=== PATIENT | male | born 1955 | race Caucasian/White ===

== ENCOUNTER → 2016-07-09 | Outpatient (CLI) | payer OTHER ==
[~2016-07-09] MED LIST: ADVA250A INH; ALBU0.08 NEB; NEBUMIS6 INH
[2016-07-09 12:30] LABS: HEMATOCRIT 44.4 % (39.0-51.0); MEAN CELL VOLUME 87.6 FL (80.0-100.0); MEAN CORPUSCULAR HEMOGLOBIN 29.7 PG (27.0-34.0); MEAN CORPUSCULAR HGB CONC 33.9 % (32.0-36.0); PLATELET COUNT 328 TH/MM3 (150-450); RED BLOOD COUNT 5.07 MIL/MM3 (4.50-5.90); RED CELL DISTRIBUTION WIDTH 14.3 % (11.6-17.2); REVIEW FLAG FINAL; WHITE BLOOD COUNT 8.4 TH/MM3 (4.0-11.0)
[2016-07-09 13:22] LABS: ALKALINE PHOSPHATASE 136 U/L (45-117); ALT (GPT) 23 U/L (12-78); ANION GAP 6 MEQ/L (5-15); AST (GOT) 20 U/L (15-37); BICARBONATE 31.6 MEQ/L (21.0-32.0); BLOOD UREA NITROGEN 22 MG/DL (7-18); CHLORIDE 102 MEQ/L (98-107); GLOMERULAR FILTRATION RATE 70 ML/MIN (>89); GLUCOSE,FASTING 98 MG/DL (74-99); HDL CHOLESTEROL 55.5 MG/DL (40.0-60.0); LDL CHOLESTEROL 104 MG/DL (0-99); SODIUM (NA) 140 MEQ/L (136-145); TOTAL BILIRUBIN ADULT 0.5 MG/DL (0.2-1.0)
== END ==
LOC: CLAB 12:01
PROVIDERS: ATTEND Nurse Practitioner Family
DX: J43.9 Emphysema, unspecified (principal)
CPT/HCPCS: 36415; 80053; 80061; 84443; 85027

== ENCOUNTER 2016-12-20 12:19 | Inpatient (IN) | payer MEDICAID, OTHER ==
[~2016-12-20] VITALS: Ht 177.8 cm; Wt 102.9 kg
[2016-12-20] VITALS (14 sets, daily range): BP systolic 105–155; BP diastolic 55–95; PULSE 98–110; RESP 16–28; TEMP 97.5–98.3; O2SAT 92–100
[2016-12-20] MEDS ORDERED: methylPREDNISolone SOD SUCC 125 MG/2 ML VIAL ONE (12:26)
[2016-12-20] MEDS ORDERED: AZITHROMYCIN 250 MG TAB PO SCH (12:30)
[2016-12-20] MEDS ORDERED: methylPREDNISolone SOD SUCC 125 MG/2 ML VIAL IVP ONE (12:30)
[2016-12-20] MEDS ORDERED: SODIUM CHLORIDE 0.9% FLUSH 10 ML FLUSH IVF PRN ×2 (12:30→12:45)
--- NOTE | 2016-12-20 12:42 | PD ---
HPI Chief Complaint: Respiratory Distress Time Seen by Provider: 12:25 Travel History International Travel<30 days: No Contact w/Intl Traveler<30days: No Traveled to known affect area: No History of Present Illness HPI 61-year-old male presents to the emergency department via EMS with respiratory distress. Patient is a known end-stage COPD patient with emphysema who is brought in secondary to severe respiratory distress, tachypnea, wheezing , and O2 sats at 90%. Patient states he was up all night sitting using his albuterol inhaler frequently, and his Advair 1. Patient denies recent fever or sweats. He denies chest pain. He has no nausea, vomiting, or respiratory symptoms. EMS called en route and the patient was given 2 mg magnesium IV as well as 4 mg Zofran IV as he was fighting using a rebreather mask for his duo nebs. Patient refused intubation in route. Patient upon arrival is receiving his third DuoNeb, and is satting at 97% on 6 L. EKG and the rate was normal sinus rhythm. Patient is now able to speak in short sentences although still tachypneic. Patient is a long-term smoker and still smokes "occasionally". He has no known drug allergies. PFSH Past Medical History Asthma: No Blood Disorders: No Anxiety: No Depression: No Heart Rhythm Problems: No Cancer: No Cardiovascular Problems: No Chemotherapy: No Chest Pain: No Congestive Heart Failure: No COPD: No Diabetes: No Endocrine: No Gastrointestinal Disorders: Yes (DIARRHEA X 7 DAYS LAST WEEK) Genitourinary: No Immune Disorder: No Musculoskeletal: No Neurologic: No Psychiatric: No Reproductive: No Respiratory: Yes (emphysema) Radiation Therapy: No Sleep Apnea: No Thyroid Disease: No Past Surgical History Other Surgery: Yes (HERNIA REPAIR) Social History Alcohol Use: Yes (OCCASIONAL BEER) Tobacco Use: Yes (1 pack per 3 days) Substance Use: No Allergies-Medications (Allergen,Severity, Reaction): Coded Allergies: No Known Allergies (Verified , 12/20/16) Reported Meds & Prescriptions Reported Meds & Active Scripts Active Albuterol Neb (Albuterol Sulfate) 2.5 Mg/3 Ml Neb 2.5 Mg NEB TID NEB PRN Advair Diskus Inh (Fluticasone-Salmeterol Inh) 250-50 Mcg/Blist Aer 1 Puff INH BID Rinse mouth after use. Review of Systems Except as stated in HPI: all other systems reviewed are Neg General / Constitutional: No: Fever, Chills Eyes: No: Visual changes HENT: No: Headaches, Sore Throat, Rhinitis, Rhinorrhea, Congestion, Nosebleed, Neck Stiffness, Neck Pain, Ear Discharge, Earache Cardiovascular: Positive: Tachycardia, No: Chest Pain or Discomfort, Palpitations, Irregular Rhythm, Diaphoresis Respiratory: Positive: Cough, Shortness of Breath, Wheezing (severe.), Orthopnea, No: Sneezing, Hemoptysis, Stridor, Night Sweats, Pleuritic Pain, Other Gastrointestinal: No: Nausea, Vomiting, Diarrhea, Abdominal Pain Genitourinary: No: Dysuria Musculoskeletal: No: Pain Skin: No Rash Neurologic: No: Weakness Psychiatric: No: Depression Endocrine: No: Polydipsia Hematologic/Lymphatic: No: Easy Bruising Physical Exam Narrative GENERAL: Patient is an obvious moderate respiratory distress. SKIN: Warm and dry. Normal color. Normal turgor. HEAD: Atraumatic. Normocephalic. EYES: Pupils equal and round. No scleral icterus. No injection or drainage. ENT: No nasal bleeding or discharge. Mucous membranes pink and moist. Pharynx is clear. Airway is patent. NECK: Trachea midline. Supple. CARDIOVASCULAR: Tachycardic rate and normal rhythm. RESPIRATORY: Moderate accessory muscle use. Moderate to severe wheezing throughout to auscultation. No rales or rhonchi appreciated. Breath sounds equal bilaterally. GASTROINTESTINAL: Abdomen soft, non-tender, nondistended. Hepatic and splenic margins not palpable. MUSCULOSKELETAL: Extremities without clubbing, cyanosis, or edema. No obvious deformities. NEUROLOGICAL: Awake and alert. No obvious cranial nerve deficits. Motor grossly within normal limits. Five out of 5 muscle strength in the arms and legs. Normal speech. PSYCHIATRIC: Appropriate mood and affect; insight and judgment normal. Data Data Last Documented VS Vital Signs Date Time Temp Pulse Resp B/P (MAP) Pulse Ox O2 Delivery O2 Flow Rate FiO2 12/20/16 13:52 40 12/20/16 13:51 109 22 125/75 (92) 100 BiPAP 12/20/16 12:53 3.50 12/20/16 12:32 98.2 Orders Orders Methylprednisolone So Succ Inj (Solumedr (12/20/16 12:26) Complete Blood Count With Diff (12/20/16 12:25) Comprehensive Metabolic Panel (12/20/16 12:25) B-Type Natriuretic Peptide (12/20/16 12:25) Act Partial Throm Time (Ptt) (12/20/16 12:25) Prothrombin Time / Inr (Pt) (12/20/16 12:25) Ckmb (Isoenzyme) Profile (12/20/16 12:25) Troponin I (12/20/16 12:25) Iv Access Insert/Monitor (12/20/16 12:25) Electrocardiogram (12/20/16 12:25) Ecg Monitoring (12/20/16 12:25) Oximetry (12/20/16 12:25) Oxygen Administration (12/20/16 12:25) Chest, Single Ap (12/20/16 12:25) Sodium Chloride 0.9% Flush (Ns Flush) (12/20/16 12:30) Methylprednisolone So Succ Inj (Solumedr (12/20/16 12:30) Lactic Acid (12/20/16 12:25) Blood Afb Culture (Elvira) (12/20/16 12:25) Azithromycin (Zithromax) (12/20/16 12:30) Resp Blood Gas Venous (12/20/16 ) Sodium Chloride 0.9% Flush (Ns Flush) (12/20/16 12:45) Albuterol-Ipratropium Neb (Duoneb Neb) (12/20/16 12:45) Resp Bipap / Cpap Non Invas Vt (12/20/16 ) Blood Gas Venous (Vbg) (12/20/16 12:42) Lorazepam Inj (Ativan Inj) (12/20/16 13:30) CKMB (12/20/16 12:30) CKMB% (12/20/16 12:30) Arterial Blood Gas (Abg) (12/20/16 ) Admit Order (Ed Use Only) (12/20/16 14:40) Labs Laboratory Tests Test 12/20/16 12:30 12/20/16 12:42 White Blood Count 9.4 TH/MM3 Red Blood Count 4.99 MIL/MM3 Hemoglobin 14.4 GM/DL Hematocrit 43.6 % Mean Corpuscular Volume 87.4 FL Mean Corpuscular Hemoglobin 28.9 PG Mean Corpuscular Hemoglobin Concent 33.1 % Red Cell Distribution Width 15.4 % Platelet Count 337 TH/MM3 Mean Platelet Volume 7.4 FL Neutrophils (%) (Auto) 71.1 % Lymphocytes (%) (Auto) 15.3 % Monocytes (%) (Auto) 10.3 % Eosinophils (%) (Auto) 2.4 % Basophils (%) (Auto) 0.9 % Neutrophils # (Auto) 6.7 TH/MM3 Lymphocytes # (Auto) 1.4 TH/MM3 Monocytes # (Auto) 1.0 TH/MM3 Eosinophils # (Auto) 0.2 TH/MM3 Basophils # (Auto) 0.1 TH/MM3 CBC Comment DIFF FINAL Differential Comment Prothrombin Time 11.0 SEC Prothromb Time International Ratio 1.0 RATIO Activated Partial Thromboplast Time 30.7 SEC Blood Urea Nitrogen 15 MG/DL Creatinine 0.72 MG/DL Random Glucose 102 MG/DL Total Protein 7.4 GM/DL Albumin 3.6 GM/DL Calcium Level 8.9 MG/DL Alkaline Phosphatase 154 U/L Aspartate Amino Transf (AST/SGOT) 25 U/L Alanine Aminotransferase (ALT/SGPT) 22 U/L Total Bilirubin 0.5 MG/DL Sodium Level 137 MEQ/L Potassium Level 4.4 MEQ/L Chloride Level 102 MEQ/L Carbon Dioxide Level 26.4 MEQ/L Anion Gap 9 MEQ/L Estimat Glomerular Filtration Rate 112 ML/MIN Lactic Acid Level 1.3 mmol/L Total Creatine Kinase 204 U/L Creatine Kinase MB 5.8 NG/ML Troponin I LESS THAN 0.02 NG/ML B-Type Natriuretic Peptide 12 PG/ML Blood Gas Puncture Site L RAD VEIN Blood Gas Patient Temperature 98.6 Venous Blood pH 7.31 Venous Blood Partial Pressure CO2 57 mmHg Venous Blood Partial Pressure O2 36 mmHg Venous Blood HCO3 28 mmol/L Venous Blood Oxygen Saturation 63 % Venous Blood Oxygen Content 12.9 Vol % Venous Blood Base Excess 2.2 mmol/L Oxygen Delivery Device AEROSOL MASK Blood Gas Liter Flow 5 L/M [facility] Medical Decision Making Medical Screen Exam Complete: Yes Emergency Medical Condition: Yes Medical Record Reviewed: Yes Differential Diagnosis Emphysema. COPD with severe exacerbation. Bronchitis. Pneumonia. Cancer. Narrative Course Patient is in improving respiratory distress at time of exam. Labs ordered including CBC, CMP, magnesium, cardiac panel, lactic acid, blood cultures 2, and arterial blood gases ordered. Patient is given 125 mg Solu-Medrol IV as well as 500 mg azithromycin by mouth. EKG and chest x-ray are ordered. Patient is given an additional DuoNeb every 15 minutes 3. Chest x-ray shows extensive severe emphysema to both upper lungs, COPD. But no obvious pneumothorax or pneumonia noted. CBC is unremarkable. VBG pH is 7.31, ABG PCO2 is 57, VBG HCO3 is 28, VBG O2 sat is 63, VBG base excess is 2.2. At this time Dr. Cotter recommends CPAP. She put the order in for this. Patient is given 2 mg lorazepam as he is quite anxious prior to CPAP application. 1340 hrs. patient is tolerating CPAP well. CMP shows normal electrolytes, BUN is 15, creatinine is 0.72, lactic acid is 1.3. Alkaline phosphatase is elevated at 154, troponin is less than 0.02. BNP is 12. CK-MB is 5.8. Call was placed for admission. 1425 hrs. ABG is ordered to assess CPAP effectiveness. 1434 hrs., ABG shows pH of 7.5, CO2 of 59.4, PO2 of 160, 8 CO2 is 28, base excess is 2.1, PO2 is 96.1%. Patient is discussed with the residents who agreed to admit the patient to the ICU. Diagnosis Primary Impression: Respiratory distress Additional Impression: Emphysema, unspecified Qualified Codes: J43.9 - Emphysema, unspecified Admitting Information Admitting Physician Requests: Admit Condition: Stable Gerardo John Dec 20, 2016 12:42
--- NOTE | 2016-12-20 12:50 | RADRPT ---
EXAM DATE/TIME: 12/20/2016 12:38 [facility] COMPARISON: CHEST SINGLE AP, April 23, 2015, 21:02. INDICATIONS : Short of breath MEDICAL HISTORY : None. Chronic obstructive pulmonary disease. Emphysema. SURGICAL HISTORY : None. ENCOUNTER: Initial ACUITY: 1 day PAIN SCORE: 0/10 LOCATION: Bilateral chest FINDINGS: Severe bullous emphysematous changes are identified. There is marked hyperaeration. Heart size is nor mal. EKG leads are present. CONCLUSION: Severe emphysema. Elvin Corado MD on December 20, 2016 at 12:48 Board Certified Radiologist. This report was verified electronically.
[2016-12-20 13:06] LABS: BLOOD GAS VENOUS BASE EXCESS 2.2 mmol/L (-2-2); BLOOD GAS VENOUS HCO3 28 mmol/L (22-26); BLOOD GAS VENOUS O2 CONTENT 12.9 Vol % (9.0-17.0); BLOOD GAS VENOUS O2 HGB SAT 63 % (70-76); BLOOD GAS VENOUS PCO2 57 mmHg (44-48); BLOOD GAS VENOUS PO2 36 mmHg (35-40); BLOOD GAS VENOUS pH 7.31 (7.360-7.400); TEMP CORR TO 98.6
[2016-12-20 13:07] LABS: CRITICAL VALUE YES; LITER FLOW 5 L/M; OXYGEN DEVICE AEROSOL MASK
[2016-12-20 13:09] LABS: AUTOMATED NEUTROPHIL # 6.7 TH/MM3 (1.8-7.7); BASOPHIL # 0.1 TH/MM3 (0-0.2); BASOPHIL % 0.9 % (0.0-2.0); EOSINOPHIL # 0.2 TH/MM3 (0-0.4); EOSINOPHIL % 2.4 % (0.0-4.0); HEMATOCRIT 43.6 % (39.0-51.0); HEMO FLAGS DIFF FINAL; LYMPH % 15.3 % (9.0-44.0); LYMPHOCYTE # 1.4 TH/MM3 (1.0-4.8); MEAN CELL VOLUME 87.4 FL (80.0-100.0); MEAN CORPUSCULAR HEMOGLOBIN 28.9 PG (27.0-34.0); MEAN CORPUSCULAR HGB CONC 33.1 % (32.0-36.0); MONO % 10.3 % (0.0-8.0); NEUT % 71.1 % (16.0-70.0); PLATELET COUNT 337 TH/MM3 (150-450); RED BLOOD COUNT 4.99 MIL/MM3 (4.50-5.90); RED CELL DISTRIBUTION WIDTH 15.4 % (11.6-17.2); WHITE BLOOD COUNT 9.4 TH/MM3 (4.0-11.0)
[2016-12-20 13:12] LABS: DRAW SITE L RAD VEIN; STAT YES
[2016-12-20 13:16] LABS: APTT (PATIENT) 30.7 SEC (24.3-30.1)
[2016-12-20 13:24] LABS: ALKALINE PHOSPHATASE 154 U/L (45-117); CREATINE KINASE 204 U/L (39-308); TOTAL BILIRUBIN ADULT 0.5 MG/DL (0.2-1.0)
[2016-12-20 13:25] LABS: ALT (GPT) 22 U/L (12-78); ANION GAP 9 MEQ/L (5-15); AST (GOT) 25 U/L (15-37); BICARBONATE 26.4 MEQ/L (21.0-32.0); BLOOD UREA NITROGEN 15 MG/DL (7-18); CHLORIDE 102 MEQ/L (98-107); GLOMERULAR FILTRATION RATE 112 ML/MIN (>89); POTASSIUM 4.4 MEQ/L (3.5-5.1); SODIUM (NA) 137 MEQ/L (136-145)
[2016-12-20] MEDS: RESP: ALBUTEROL 2.5 MG/IPRATROPIUM 0.5 MG NEB (SCH) INH ×2 (13:28→20:07)
[2016-12-20] MEDS ORDERED: LORazepam 2 MG/ML VIAL IV PUSH ONE (13:30)
[2016-12-20 13:36] LABS: CKMB 5.8 NG/ML (0.5-3.6)
--- NOTE | 2016-12-20 14:36 | HHI.HP ---
HPI Service Family Medicine Primary Care Physician No Primary Care Physician Admission Diagnosis Diagnoses: International Travel<30 Days: No Contact w/Intl Traveler<30days: No Known Affected Area: No History of Present Illness 61 yo male with PMH of severe COPD presenting with respiratory failure, tachypnea, wheezing, and O2 sats at 90%. Patient was unresponsive during interview so PMH and HPI gathered from chart review. Patient was brought to ED by ambulance. Patient states he was up all night sitting using his albuterol inhaler frequently, and his Advair 1. Patient denied recent fever or sweats. He denied chest pain. He had no nausea, vomiting, or respiratory symptoms. EMS called en route and the patient was given 2 mg magnesium IV as well as 4 mg Zofran IV as he was fighting using a rebreather mask for his duo nebs. Patient refused intubation in route. EKG and the rate was normal sinus rhythm Patient started on BiPAP and received 2mg Ativan due to anxiety (Gerald Watson MD R1) Review of Systems ROS Limitations: Altered Mental Status, Unresponsive (Gerald Watson MD R1) Past Family Social History Past Medical History Per chart review -COPD Past Surgical History per chart review -hernia repair in 1992 Reported Medications Reported Meds & Active Scripts Active Albuterol Neb (Albuterol Sulfate) 2.5 Mg/3 Ml Neb 2.5 Mg NEB TID NEB PRN Advair Diskus Inh (Fluticasone-Salmeterol Inh) 250-50 Mcg/Blist Aer 1 Puff INH BID Rinse mouth after use. (Gerald Watson MD R1) Allergies: Coded Allergies: No Known Allergies (Verified , 12/20/16) Family History per chart review -father of NH, COPD -Mother has Alzheimer disease Social History per chart review -4 years of high school education, worked in [employer] -quit smoking in apr 2016 -previously reported little alcohol use (Gerald Watson MD R1) Physical Exam Vital Signs Vital Signs Date Time Temp Pulse Resp B/P (MAP) Pulse Ox O2 Delivery O2 Flow Rate FiO2 12/20/16 13:52 40 12/20/16 13:51 109 22 125/75 (92) 100 BiPAP 40 12/20/16 13:32 99 40 12/20/16 12:53 106 24 125/75 (92) 95 Nasal Cannula 3.50 12/20/16 12:34 99 Aerosol Mask 5.00 12/20/16 12:34 99 Aerosol Mask 5.00 12/20/16 12:32 98.2 98 27 125/75 (92) 99 Aerosol Mask 5.00 Physical Exam GENERAL: Patient seen sitting up in bed on BiPAP machine breathing laboriously. Somnolent and unresponsive to questions/stimulations SKIN: Hyperpigmented, thick callouses noted on plantar surfaces of both feet. No bleeding, draining, erythema. HEAD: Atraumatic. Normocephalic. EYES: Unable to assess ENT: Unable to assess oropharynx, no obvious bleeding or lacerations. NECK: Trachea midline. No JVD or lymphadenopathy. Supple, nontender, no meningeal signs. CARDIOVASCULAR: Regular rate and rhythm without murmurs, gallops, or rubs. RESPIRATORY: Diffuse wheezing bilaterally, prolonged expiratory phase noted. GASTROINTESTINAL: Abdomen soft, nondistended. No hepato-splenomegaly, or palpable masses. No guarding. MUSCULOSKELETAL: Extremities without clubbing, cyanosis, or edema. No joint tenderness, effusion, or edema noted. NEUROLOGICAL: Patient unable to arouse by verbal questioning during exam. Laboratory Laboratory Tests Test 12/20/16 12:30 12/20/16 12:42 White Blood Count 9.4 Red Blood Count 4.99 Hemoglobin 14.4 Hematocrit 43.6 Mean Corpuscular Volume 87.4 Mean Corpuscular Hemoglobin 28.9 Mean Corpuscular Hemoglobin Concent 33.1 Red Cell Distribution Width 15.4 Platelet Count 337 Mean Platelet Volume 7.4 Neutrophils (%) (Auto) 71.1 Lymphocytes (%) (Auto) 15.3 Monocytes (%) (Auto) 10.3 Eosinophils (%) (Auto) 2.4 Basophils (%) (Auto) 0.9 Neutrophils # (Auto) 6.7 Lymphocytes # (Auto) 1.4 Monocytes # (Auto) 1.0 Eosinophils # (Auto) 0.2 Basophils # (Auto) 0.1 CBC Comment DIFF FINAL Differential Comment Prothrombin Time 11.0 Prothromb Time International Ratio 1.0 Activated Partial Thromboplast Time 30.7 Blood Urea Nitrogen 15 Creatinine 0.72 Random Glucose 102 Total Protein 7.4 Albumin 3.6 Calcium Level 8.9 Alkaline Phosphatase 154 Aspartate Amino Transf (AST/SGOT) 25 Alanine Aminotransferase (ALT/SGPT) 22 Total Bilirubin 0.5 Sodium Level 137 Potassium Level 4.4 Chloride Level 102 Carbon Dioxide Level 26.4 Anion Gap 9 Estimat Glomerular Filtration Rate 112 Lactic Acid Level 1.3 Total Creatine Kinase 204 Creatine Kinase MB 5.8 Troponin I LESS THAN 0.02 B-Type Natriuretic Peptide 12 Blood Gas Puncture Site L RAD VEIN Blood Gas Patient Temperature 98.6 Venous Blood pH 7.31 Venous Blood Partial Pressure CO2 57 Venous Blood Partial Pressure O2 36 Venous Blood HCO3 28 Venous Blood Oxygen Saturation 63 Venous Blood Oxygen Content 12.9 Venous Blood Base Excess 2.2 Oxygen Delivery Device AEROSOL MASK Blood Gas Liter Flow 5 (Gerald Watson MD R1) Result Diagram: 12/20/16 1230 12/20/16 1230 Imaging Last 24 hours Impressions Chest X-Ray 12/20/16 1225 Signed Impressions: Service Date/Time: Tuesday, December 20, 2016 12:38 - CONCLUSION: Severe emphysema. Elvin Corado MD (Gerald Watson MD R1) Caprini VTE Risk Assessment Caprini VTE Risk Assessment: No/Low Risk (score <= 1) Caprini Risk Assessment Model Point Value = 1 Point Value = 2 Point Value = 3 Point Value = 5 Age 41-60 Minor surgery BMI > 25 kg/m2 Swollen legs Varicose veins or History of unexplained or recurrent spontaneous Oral contraceptives or hormone replacement Sepsis (< 1 month) Serious lung disease, including pneumonia (< 1 month) Abnormal pulmonary function Acute myocardial infarction Congestive heart failure (< 1 month) History of inflammatory bowel disease Medical patient at bed rest Age 61-74 Arthroscopic surgery Major open surgery (> 45 min) Laparoscopic surgery (> 45 min) Malignancy Confined to bed (> 72 hours) Immobilizing plaster cast Central venous access Age >= 75 History of VTE Family history of VTE Factor V Leiden Prothrombin [id number] Lupus anticoagulant Anticardiolipin antibodies Elevated serum homocysteine Heparin-induced thrombocytopenia Other congenital or acquired thrombophilia Stroke (< 1 month) Elective arthroplasty Hip, pelvis, or leg fracture Acute spinal cord injury (< 1 month) Prophylaxis Regimen Total Risk Factor Score Risk Level Prophylaxis Regimen 0-1 Low Early ambulation 2 Moderate Order ONE of the following: *Sequential Compression Device (SCD) *Heparin 5000 units SQ BID 3-4 Higher Order ONE of the following medications: *Heparin 5000 units SQ TID *Enoxaparin/Lovenox 40 mg SQ daily (WT < 150 kg, CrCl > 30 mL/min) *Enoxaparin/Lovenox 30 mg SQ daily (WT < 150 kg, CrCl > 10-29 mL/min) *Enoxaparin/Lovenox 30 mg SQ BID (WT < 150 kg, CrCl > 30 mL/min) AND/OR *Sequential Compression Device (SCD) 5 or more Highest Order ONE of the following medications: *Heparin 5000 units SQ TID (Preferred with Epidurals) *Enoxaparin/Lovenox 40 mg SQ daily (WT < 150 kg, CrCl > 30 mL/min) *Enoxaparin/Lovenox 30 mg SQ daily (WT < 150 kg, CrCl > 10-29 mL/min) *Enoxaparin/Lovenox 30 mg SQ BID (WT < 150 kg, CrCl > 30 mL/min) AND *Sequential Compression Device (SCD) (Gerald Watson MD R1) Assessment and Plan Assessment and Plan 61 yo WM being admitted to ICU for respiratory failure, AMS. Code Status full Discussed Condition With Dr. Thompson and Dr. Medel (Gerald Watson MD R1) Attending Attestation Patient seen and examined. Case reviewed and discussed with the resident team. Agree with plan of care as discussed with me and documented in the resident note. pt seen on admission in ED. He was basically obtunded on his bipap. he would not make eye contact or speak. per his ED nurse "he's been that way since he had his 2 mg of lorazepam." concerned about his frail respiratory status with his oversedation. appreciate help from Linux Programmer! (Devi Thompson MD) Problem List: (1) Respiratory failure ICD Codes: J96.90 - Respiratory failure, unspecified, unspecified whether with hypoxia or hypercapnia Status: Acute Plan: Increased Oxygen requirement on admission - O2 saturation 95% on BiPAP VBG pH 7.3 ABG ordered CXR showed severe emphysema, no infiltrates no leukocytosis on CBC Azithromycin 500 mg q24hr given in ED Linux Programmer consulted, agreed should be placed in ICU (2) Altered mental status ICD Codes: R41.82 - Altered mental status, unspecified Status: Acute Plan: 2/2 to respiratory failure vs medication side effect vs sepsis -patient more responsive prior to interview - 2 mg Ativan given on ED arrival -No electrolyte abnormalities -Blood cultures pending (3) FEN Status: Acute Plan: NPO on admission Lovenox for DVT prophylaxis (Gerald Watson MD R1) Physician Certification 2 Midnight Certification Type: Admission for Inpatient Services Order for Inpatient Services The services are ordered in accordance with Medicare regulations or non- Medicare payer requirements, as applicable. In the case of services not specified as inpatient-only, they are appropriately provided as inpatient services in accordance with the 2-midnight benchmark. Estimated LOS (days): 3 days is the estimated time the patient will need to remain in the hospital, assuming treatment plan goals are met and no additional complications. Post-Hospital Plan: Home (Gerald Watson MD R1) Problem Qualifiers (1) Respiratory failure: Qualified Codes: J96.21 - Acute and chronic respiratory failure with hypoxia (2) Altered mental status: Qualified Codes: R40.0 - Somnolence Gerald Watson MD R1 Dec 20, 2016 14:36 Devi Thompson MD Dec 21, 2016 17:52
[2016-12-20] MEDS ORDERED: SODIUM CHLORIDE 0.9% FLUSH 10 ML FLUSH IV FLUSH PRN ×2 (16:00→16:45)
[2016-12-20] MEDS ORDERED: FLUMAZENIL 0.5 MG/5 ML VIAL IV PUSH ONE (16:30)
[2016-12-20] MEDS ORDERED: ETOMIDATE 20 MG/10 ML VIAL ONE (16:37)
[2016-12-20] MEDS ORDERED: PROPOFOL 1000 MG/100 ML INJ 100 ML IV PRN (16:45)
[2016-12-20] MEDS ORDERED: BISACODYL 10 MG SUPP RECTAL PRN (16:45)
[2016-12-20] MEDS ORDERED: ONDANSETRON HCL 4 MG/2 ML VIAL IV PRN (16:45)
[2016-12-20] MEDS ORDERED: CHLORHEXIDINE GLUCONATE 2 % 1 PACK (2 CLOTHS) TOP PRN (16:45)
[2016-12-20] MEDS ORDERED: ACETAMINOPHEN 325 MG TAB PO PRN (16:45)
[2016-12-20] MEDS ORDERED: ETOMIDATE 20 MG/10 ML VIAL IV PUSH ONE (16:45)
[2016-12-20] MEDS ORDERED: fentaNYL DRIP 250 ML IV PRN (16:45)
[2016-12-20] MEDS ORDERED: MISCELLANEOUS NURSING INFORMATION XX SCH (16:45)
[2016-12-20] MEDS ORDERED: LACTULOSE SYRUP 20 GM/30 ML CUP PO PRN (16:45)
[2016-12-20] MEDS ORDERED: SENNOSIDES 8.6 MG TAB PO PRN (16:45)
[2016-12-20] MEDS ORDERED: MAGNESIUM HYDROXIDE SUSP 30 ML CUP PO PRN (16:45)
[2016-12-20] MEDS ORDERED: ROCURONIUM INJ 50 MG/5 ML VIAL IV ONE (16:45)
--- NOTE | 2016-12-20 16:46 | PD.CONS ---
[facility] Service Critical Care Medicine Consult Requested By Dr. Watson Reason for Consult Respiratory failure Primary Care Physician No Primary Care Physician History of Present Illness 61-year-old male. Date of admission 12/20/2016. Past medical history includes emphysema. Presented to [facility] with respiratory distress. Patient states he was up all night sitting using his albuterol inhaler frequently, and his Advair 1. Recent sick contacts. No fevers, chills, nausea vomiting. EMS called en route and the patient was given 2 mg magnesium IV as well as 4 mg Zofran IV as he was fighting using a rebreather mask for his duo nebs. Patient upon arrival is receiving his third DuoNeb, and is satting at 97% on 6 L. EKG and the rate was normal sinus rhythm. Patient is now able to speak in short sentences although still tachypneic. Patient is a long-term smoker and still smokes "occasionally". He has no known drug allergies. Patient was placed on BiPAP after receiving 3 stacked bronchodilator therapies and given 2 mg of lorazepam. Patient was unresponsive on BiPAP when evaluated in the ED. he received 0.5 mg of flumazenil is currently responsive on 4 L nasal cannula. He is currently receiving an albuterol therapy and saturations are 97%. He states that he is okay with intubation" save his life". He is currently a full code. He currently does not need intubation. In discussing with patient, patient has been rationing his albuterol recently and riding the bus and this might be continued to his underlying symptomatology currently. Review of Systems Constitutional: COMPLAINS OF: Fatigue, DENIES: Fever, Weight gain, Weight loss Endocrine: DENIES: Polydipsia, Polyuria Eyes: DENIES: Blurred vision Ears, nose, mouth, throat: DENIES: Tinnitus Respiratory: COMPLAINS OF: Cough, Shortness of breath Cardiovascular: DENIES: Chest pain Gastrointestinal: DENIES: Abdominal pain, Constipation, Diarrhea, Nausea, Vomiting Genitourinary: DENIES: Dysuria Musculoskeletal: DENIES: Back pain, Neck pain Integumentary: DENIES: Abnormal pigmentation Hematologic/lymphatic: DENIES: Bruising Immunologic/allergic: DENIES: Eczema Neurologic: DENIES: Headache Psychiatric: COMPLAINS OF: Anxiety, DENIES: Confusion Past Family Social History Allergies: Coded Allergies: No Known Allergies (Verified , 12/20/16) Past Medical History COPD THC use Past Surgical History HERNIA Repair Reported Medications Albuterol nebulizers 3 times a day Fluticasone/Salmeterol 250/50 one inhalation twice a day Active Ordered Medications Reviewed in EMR Family History Mother with CVA. Father with COPD/DC. Social History Less than 1 pack per week. Occasional alcohol use. Positive THC use. Physical Exam Vital Signs Vital Signs Date Time Temp Pulse Resp B/P (MAP) Pulse Ox O2 Delivery O2 Flow Rate FiO2 12/20/16 15:08 99 16 105/84 (91) 99 BiPAP 35 12/20/16 15:06 35 12/20/16 14:51 100 35 12/20/16 14:40 100 35 12/20/16 13:52 40 12/20/16 13:51 109 22 125/75 (92) 100 BiPAP 40 12/20/16 13:32 99 40 12/20/16 12:53 106 24 125/75 (92) 95 Nasal Cannula 3.50 12/20/16 12:34 99 Aerosol Mask 5.00 12/20/16 12:34 99 Aerosol Mask 5.00 12/20/16 12:32 98.2 98 27 125/75 (92) 99 Aerosol Mask 5.00 Physical Exam GENERAL: 61-year-old male, critically ill currently resting in bed SKIN: Warm and dry. Scaling bilateral lower extremities. HEAD: Atraumatic. Normocephalic. EYES: Pupils equal and round to millimeters bilaterally and reactive. No scleral icterus. No injection or drainage. ENT: No nasal bleeding or discharge. Mucous membranes pink and moist. NECK: Trachea midline. No JVD. CARDIOVASCULAR: Tachycardic, RR. S1, S2. No S4. RESPIRATORY: + accessory muscle use. Diminished breath sounds throughout. Positive end expiratory wheeze GASTROINTESTINAL: Abdomen soft, non-tender, nondistended. Hypoactive bowel sounds are appreciated. MUSCULOSKELETAL: Extremities without significant peripheral edema. No obvious deformities. NEUROLOGICAL: Awake and alert. No obvious cranial nerve deficits. Motor grossly within normal limits. Five out of 5 muscle strength in the arms and legs. Normal speech. PSYCHIATRIC: Appropriate mood and affect; insight and judgment normal. Laboratory Laboratory Tests Test 12/20/16 12:30 12/20/16 12:42 White Blood Count 9.4 Red Blood Count 4.99 Hemoglobin 14.4 Hematocrit 43.6 Mean Corpuscular Volume 87.4 Mean Corpuscular Hemoglobin 28.9 Mean Corpuscular Hemoglobin Concent 33.1 Red Cell Distribution Width 15.4 Platelet Count 337 Mean Platelet Volume 7.4 Neutrophils (%) (Auto) 71.1 Lymphocytes (%) (Auto) 15.3 Monocytes (%) (Auto) 10.3 Eosinophils (%) (Auto) 2.4 Basophils (%) (Auto) 0.9 Neutrophils # (Auto) 6.7 Lymphocytes # (Auto) 1.4 Monocytes # (Auto) 1.0 Eosinophils # (Auto) 0.2 Basophils # (Auto) 0.1 CBC Comment DIFF FINAL Differential Comment Prothrombin Time 11.0 Prothromb Time International Ratio 1.0 Activated Partial Thromboplast Time 30.7 Blood Urea Nitrogen 15 Creatinine 0.72 Random Glucose 102 Total Protein 7.4 Albumin 3.6 Calcium Level 8.9 Alkaline Phosphatase 154 Aspartate Amino Transf (AST/SGOT) 25 Alanine Aminotransferase (ALT/SGPT) 22 Total Bilirubin 0.5 Sodium Level 137 Potassium Level 4.4 Chloride Level 102 Carbon Dioxide Level 26.4 Anion Gap 9 Estimat Glomerular Filtration Rate 112 Lactic Acid Level 1.3 Total Creatine Kinase 204 Creatine Kinase MB 5.8 Troponin I LESS THAN 0.02 B-Type Natriuretic Peptide 12 Blood Gas Puncture Site L RAD VEIN Blood Gas Patient Temperature 98.6 Venous Blood pH 7.31 Venous Blood Partial Pressure CO2 57 Venous Blood Partial Pressure O2 36 Venous Blood HCO3 28 Venous Blood Oxygen Saturation 63 Venous Blood Oxygen Content 12.9 Venous Blood Base Excess 2.2 Oxygen Delivery Device AEROSOL MASK Blood Gas Liter Flow 5 Date/Time Source Procedure Growth Status 12/20/16 15:45 Blood Peripheral Mycobacterial Culture Pending Received Result Diagram: 12/20/16 1230 12/20/16 1230 Imaging Last 72 hours Impressions Chest X-Ray 12/20/16 1225 Signed Impressions: Service Date/Time: Tuesday, December 20, 2016 12:38 - CONCLUSION: Severe emphysema. Elvin Corado MD Assessment and Plan Assessment and Plan Neuro/Psych: EtOH use THC use Acetaminophen 650 mill grams every 6 hours when necessary for fever greater than 100 Hydrocodone/acetaminophen 5/25 one tablet every 4 hours when necessary pain 1- 10 Would limit benzodiazepines, patient very sensitive CV: Sinus tachycardia Currently on normal saline at 84 cc an hour. No indication for antihypertensive and or vasopressors at the present time Resp: Acute on chronic respiratory failure secondary to COPD exacerbation Chest x-ray revealed severe emphysema with no focal infiltrates ABG pending Currently on albuterol/hypertrophy aerosols every 4 hours with albuterol aerosols every 2 hours. Dyspnea Budesonide 0.5 mg/2 mL one inhalation twice a day Methylprednisolone 40 mg IV every 6 hours O2 titrate to maintain saturations greater than equal to 88% GI: Clear liquid diet Famotidine for GI prophylaxis Docusate sodium/senna 1 tablet twice a day for bowel regimen : No indication for Templeton catheter Endo: Sliding-scale insulin to maintain euglycemia Novulin R low regimen with Accu- Cheks before meals/at bedtime Renal: Creatinine currently within normal limits Monitor urine output Accurate I's and O's Normal saline at 84 cc an hour Heme: CBC within normal limits Follow CBC daily. Monitor trends ID: Currently on cefepime/azithromycin day #1 Blood cultures 2, sputum, influenza all pending MSK: PT evaluate and treat FEN Replace electrolytes as clinically indicated Access - Utilize peripheral IV. Central line if indicated Prophylaxis - GI - famotidine - DVT - enoxaparin Level II consult Code Status Full code Discussed Condition With Dr. Watson. Patient. Care plan discussed and all questions answered. Patient has an estranged brother he isn't spoken to in 12 years Aamir Can. Patient has no friends. Miki Howell MD Dec 20, 2016 16:46
[2016-12-20] MEDS ORDERED: DEXTROSE 50% IN WATER 50 ML VIAL(D50) IV PRN (17:30)
[2016-12-20] MEDS ORDERED: ACETAMINOPHEN/HYDROcodone 325 MG/5 MG TAB PO PRN (17:30)
[2016-12-20] MEDS ORDERED: GLUCAGON 1 MG/ML VIAL OTHER PRN (17:30)
[2016-12-20 17:46] LABS: BLOOD GAS BASE EXCESS 1.7 mmol/L (-2-2); BLOOD GAS CARBOXYHEMOGLOBIN 2.4 % (0-4); BLOOD GAS HCO3 27 mmol/L (22-26); BLOOD GAS METHEMOGLOBIN 1.1 % (0-2); BLOOD GAS O2 HGB SATURATION 91 % (90-100); BLOOD GAS OXYGEN CONTENT 18.4 Vol % (12.0-20.0); BLOOD GAS PCO2 57 mmHg (38-42); BLOOD GAS PO2 74 mmHg (61-120); BLOOD GAS TOTAL HGB 14.5 G/DL (12.0-16.0); CRITICAL VALUE YES; TEMP CORR TO 98.6
[2016-12-20 17:47] LABS: DRAW SITE RT RADIAL; LITER FLOW 5 L/M; NUMBER OF ARTERIAL PUNCTURES 1; OXYGEN DEVICE NASAL CANNULA; STAT NO; ULNAR PULSE PRESENT
[2016-12-20] MEDS: RESP: ALBUTEROL 2.5 MG/3 ML NEB (PRN) INH ×2 (17:53→22:31)
[2016-12-20] MEDS: ENOXAPARIN SODIUM 40 MG/0.4 ML SYRINGE SQ SCH (18:19)
[2016-12-20] MEDS: CEFEPIME INJ 2,000 MG in SODIUM CHLORIDE 0.9% INJ 100 ML IV SCH (18:20)
[2016-12-20] MEDS: SODIUM CHLOR 0.9% 1000 ML INJ 1,000 ML IV SCH (18:20)
[2016-12-20] MEDS: methylPREDNISolone SOD SUCC 40 MG/1 ML VIAL IV PUSH SCH ×2 (18:21→23:24)
[2016-12-20] MEDS: ARTIFICIAL TEARS OPTH SOLN 15 ML BTL EACH EYE SCH (18:42)
[2016-12-20] MEDS: CHLORHEXIDINE 0.12% (ORAL KIT) 15 ML CUP MT SCH (20:00)
[2016-12-20] MEDS ORDERED: RESP: BUDESONIDE 0.5 MG/2 ML NEB NEB SCH (20:00)
[2016-12-20] MEDS: FAMOTIDINE 20 MG TAB PO SCH (20:51)
[2016-12-20] MEDS: DOCUSATE SODIUM 50 MG/SENNA 8.6 MG TAB PO SCH (20:51)
[2016-12-20] MEDS ORDERED: SODIUM CHLORIDE 0.9% FLUSH 10 ML FLUSH IV FLUSH SCH (21:00)
[2016-12-20] MEDS: INSULIN NovoLIN REGULAR SUPPLEMENTAL SCALE SQ SCH (21:00)
[2016-12-20] MEDS: SODIUM CHLORIDE 0.9% FLUSH 10 ML FLUSH IV FLUSH SCH (22:07)
[2016-12-21] VITALS (9 sets, daily range): BP systolic 101–137; BP diastolic 57–97; PULSE 83–122; RESP 20–24; TEMP 97.4–98.1; O2SAT 93–99
[2016-12-21] MEDS: RESP: ALBUTEROL 2.5 MG/IPRATROPIUM 0.5 MG NEB (SCH) INH ×6 (00:36→20:30)
[2016-12-21] MEDS: RESP: ALBUTEROL 2.5 MG/3 ML NEB (PRN) INH (02:49)
[2016-12-21] MEDS: CHLORHEXIDINE GLUCONATE 2 % 1 PACK (2 CLOTHS) TOP SCH (04:00)
[2016-12-21 05:11] LABS: HEMATOCRIT 41.2 % (39.0-51.0); MEAN CELL VOLUME 88.1 FL (80.0-100.0); MEAN CORPUSCULAR HEMOGLOBIN 29.1 PG (27.0-34.0); PLATELET COUNT 290 TH/MM3 (150-450); RED BLOOD COUNT 4.68 MIL/MM3 (4.50-5.90); RED CELL DISTRIBUTION WIDTH 15.2 % (11.6-17.2); WHITE BLOOD COUNT 13.1 TH/MM3 (4.0-11.0)
[2016-12-21 05:15] LABS: APTT (PATIENT) 27.5 SEC (24.3-30.1); PROTHROMBIN TIME - PATIENT 11.1 SEC (9.8-11.6)
[2016-12-21] MEDS: methylPREDNISolone SOD SUCC 40 MG/1 ML VIAL IV PUSH SCH ×4 (05:15→23:12)
[2016-12-21] MEDS: CEFEPIME INJ 2,000 MG in SODIUM CHLORIDE 0.9% INJ 100 ML IV SCH ×2 (05:16→17:05)
[2016-12-21] MEDS: SODIUM CHLOR 0.9% 1000 ML INJ 1,000 ML IV SCH ×2 (05:16→15:30)
[2016-12-21 05:19] LABS: HEMO FLAGS AUTO DIFF
[2016-12-21 05:32] LABS: ANION GAP 9 MEQ/L (5-15); AST (GOT) 28 U/L (15-37); BLOOD UREA NITROGEN 20 MG/DL (7-18); CHLORIDE 103 MEQ/L (98-107); GLOMERULAR FILTRATION RATE 89 ML/MIN (>89); MAGNESIUM 2.2 MG/DL (1.5-2.5); POTASSIUM 4.5 MEQ/L (3.5-5.1); SODIUM (NA) 139 MEQ/L (136-145)
[2016-12-21 05:35] LABS: ALKALINE PHOSPHATASE 129 U/L (45-117); ALT (GPT) 25 U/L (12-78); TOTAL BILIRUBIN ADULT 0.3 MG/DL (0.2-1.0)
[2016-12-21] MEDS: INSULIN NovoLIN REGULAR SUPPLEMENTAL SCALE SQ SCH ×4 (07:00→20:23)
--- NOTE | 2016-12-21 07:35 | HHI.CCPN ---
Subjective Remarks/Hospital Course 61-year-old male. Date of admission 12/20/2016. Past medical history includes emphysema. Presented to [facility] with respiratory distress. Patient states he was up all night sitting using his albuterol inhaler frequently, and his Advair 1. Recent sick contacts. No fevers, chills, nausea vomiting. EMS called en route and the patient was given 2 mg magnesium IV as well as 4 mg Zofran IV as he was fighting using a rebreather mask for his duo nebs. Patient upon arrival is receiving his third DuoNeb, and is satting at 97% on 6 L. EKG and the rate was normal sinus rhythm. Patient is now able to speak in short sentences although still tachypneic. Patient is a long-term smoker and still smokes "occasionally". He has no known drug allergies. Patient was placed on BiPAP after receiving 3 stacked bronchodilator therapies and given 2 mg of lorazepam. Patient was unresponsive on BiPAP when evaluated in the ED. he received 0.5 mg of flumazenil is currently responsive on 4 L nasal cannula. He is currently receiving an albuterol therapy and saturations are 97%. He states that he is okay with intubation" save his life". He is currently a full code. He currently does not need intubation. In discussing with patient, patient has been rationing his albuterol recently and riding the bus and this might be continued to his underlying symptomatology currently. SUBJ 12/21: Patient is intermittently short of breath, on exertion. Currently lying comfortably on bed. Mild wheezing on exam. Objective Vital Signs Date Time Temp Pulse Resp B/P (MAP) Pulse Ox O2 Delivery O2 Flow Rate FiO2 12/21/16 03:00 98.1 96 20 136/77 (96) 95 12/21/16 00:36 Nasal Cannula 2.00 12/20/16 15:08 35 Intake and Output 12/21/16 12/21/16 12/22/16 08:00 16:00 00:00 Intake Total 1060 ml Output Total 820 ml Balance 240 ml Result Diagram: 12/21/16 0450 12/21/16 0450 Other Results Laboratory Tests Test 12/20/16 12:42 12/20/16 17:40 Blood Gas Puncture Site L RAD VEIN RT RADIAL Blood Gas Patient Temperature 98.6 98.6 Venous Blood pH 7.31 (7.360-7.400) Venous Blood Partial Pressure CO2 57 mmHg (44-48) Venous Blood Partial Pressure O2 36 mmHg (35-40) Venous Blood HCO3 28 mmol/L (22-26) Venous Blood Oxygen Saturation 63 % (70-76) Venous Blood Oxygen Content 12.9 Vol % (9.0-17.0) Venous Blood Base Excess 2.2 mmol/L (-2-2) Oxygen Delivery Device AEROSOL MASK NASAL CANNULA Blood Gas Liter Flow 5 L/M 5 L/M Blood Gas HCO3 27 mmol/L (22-26) Blood Gas Base Excess 1.7 mmol/L (-2-2) Blood Gas Oxygen Saturation 91 % (90-100) Arterial Blood pH 7.31 (7.380-7.420) Arterial Blood Partial Pressure CO2 57 mmHg (38-42) Arterial Blood Partial Pressure O2 74 mmHg (61-120) Arterial Blood Oxygen Content 18.4 Vol % (12.0-20.0) Arterial Blood Carboxyhemoglobin 2.4 % (0-4) Arterial Blood Methemoglobin 1.1 % (0-2) Blood Gas Hemoglobin 14.5 G/DL (12.0-16.0) Imaging Last 72 hours Impressions Chest X-Ray 12/20/16 1225 Signed Impressions: Service Date/Time: Tuesday, December 20, 2016 12:38 - CONCLUSION: Severe emphysema. Elvin Corado MD Objective Remarks GENERAL: 61-year-old male, currently resting in bed SKIN: Warm and dry. Scaling bilateral lower extremities. HEAD: Atraumatic. Normocephalic. EYES: Pupils equal and round to millimeters bilaterally and reactive. No scleral icterus. No injection or drainage. ENT: No nasal bleeding or discharge. Mucous membranes pink and moist. NECK: Trachea midline. No JVD. CARDIOVASCULAR: S1, S2. No S4. No murmurs RESPIRATORY: Diminished breath sounds throughout. Mild Positive end expiratory wheeze GASTROINTESTINAL: Abdomen soft, non-tender, nondistended. Hypoactive bowel sounds are appreciated. MUSCULOSKELETAL: Extremities without significant peripheral edema. No obvious deformities. NEUROLOGICAL: Awake and alert. No obvious cranial nerve deficits. Motor grossly within normal limits. Five out of 5 muscle strength in the arms and legs. Normal speech. Urinary Catheter: Yes Assessment to: Continue A/P Assessment and Plan Neuro/Psych: EtOH use THC use Acetaminophen 650 mill grams every 6 hours when necessary for fever greater than 100 Hydrocodone/acetaminophen 5/25 one tablet every 4 hours when necessary pain 1- 10 Limit benzodiazepines, patient very sensitive. Librium 10 mg po q6hr PRN for anxiety withdrawal CV: Sinus tachycardia Currently on normal saline at 84 cc an hour. No indication for antihypertensive and or vasopressors at the present time Resp: Acute on chronic respiratory failure secondary to COPD exacerbation Chest x-ray revealed severe emphysema with no focal infiltrates Currently on albuterol/hypertrophy aerosols every 4 hours with albuterol aerosols every 2 hours for Dyspnea Methylprednisolone 40 mg IV every 6 hours O2 titrate to maintain saturations greater than equal to 88% Start Symbicort, Spiriva, consult pulmonology GI: Heart healthy diet Famotidine for GI prophylaxis Docusate sodium/senna 1 tablet twice a day for bowel regimen : No indication for Temple[place] catheter Endo: Sliding-scale insulin to maintain euglycemia Novulin R low regimen with Accu- Cheks before meals/at bedtime Renal: Creatinine currently within normal limits Monitor urine output Normal saline at 84 cc an hour Heme: CBC within normal limits Follow CBC daily. Monitor trends ID: Currently on cefepime/azithromycin day #2 Follow-up Blood cultures 2, sputum, influenza MSK: PT evaluate and treat FEN Replace electrolytes as clinically indicated Access - Utilize peripheral IV. Central line if indicated Prophylaxis - GI - famotidine - DVT - enoxaparin Level II CCM will sign off. Re consult as needed Magdalene Dupree MD Dec 21, 2016 07:35
[2016-12-21] MEDS: CHLORHEXIDINE 0.12% (ORAL KIT) 15 ML CUP MT SCH ×2 (08:00→20:00)
[2016-12-21 08:20] LABS: BANDS 16 % (0-6); NEUTROPHIL # MANUAL DIFF 12.4 TH/MM3 (1.8-7.7); POLYS (SEG NEUTROPHILS) 79 % (16-70); WBC DIFF SAMPLE 100
[2016-12-21 08:21] LABS: PLATELET ESTIMATE SMEAR NORMAL (NORMAL); PLATELET MORPHOLOGY NORMAL (NORMAL); SCAN/DIFF FINAL DIFF MANUAL
[2016-12-21] MEDS: ARTIFICIAL TEARS OPTH SOLN 15 ML BTL EACH EYE SCH ×3 (08:49→17:05)
[2016-12-21] MEDS: DOCUSATE SODIUM 50 MG/SENNA 8.6 MG TAB PO SCH ×2 (08:49→20:10)
[2016-12-21] MEDS: FAMOTIDINE 20 MG TAB PO SCH ×2 (08:49→20:09)
[2016-12-21] MEDS: SODIUM CHLORIDE 0.9% FLUSH 10 ML FLUSH IV FLUSH SCH ×2 (08:49→20:10)
[2016-12-21] MEDS ORDERED: LANSOPRAZOLE SOLUTAB 30 MG TAB G-TUBE SCH (09:00)
--- NOTE | 2016-12-21 10:32 | HHI.HP ---
HPI Service Family Medicine Primary Care Physician No Primary Care Physician Admission Diagnosis Diagnoses: (1) Respiratory failure (2) Altered mental status (3) FEN International Travel<30 Days: No Contact w/Intl Traveler<30days: No Known Affected Area: No History of Present Illness Mr Can is a 61 yo male with PMH of severe COPD presenting with respiratory failure, tachypnea, wheezing, and O2 sats at 90%. Patient was unresponsive during interview in ED so PMH and HPI gathered from chart review and verified today. Patient was brought to ED by ambulance. Patient states he was up all night sitting using his albuterol inhaler frequently, and his Advair 1. He states his advair "never worked for him" and he only breathes in very shallowly when demonstrating today. Patient denied recent fever or sweats. He denied chest pain. He had no nausea, vomiting, or respiratory symptoms. EMS called en route and the patient was given 2 mg magnesium IV as well as 4 mg Zofran IV as he was fighting using a rebreather mask for his duo nebs. Patient refused intubation en route. EKG and the rate was normal sinus rhythm Patient started on BiPAP and received 2mg Ativan due to anxiety. He stated today when he was more conversant that he was doing well at home until late Wednesday night when he started to have problems. He has a history of COPD and reports having PFTs in the past though those records are not available at this time. Today he feels much better with his breathing overall but is still weak and having some trouble ambulating to the bathroom. Review of Systems ROS Limitations: Clinical Condition, Unresponsive (initially), Uncooperative Constitutional: COMPLAINS OF: Weight loss, DENIES: Fever Endocrine: DENIES: Polyphagia Ears, nose, mouth, throat: DENIES: Vertigo, Nasal discharge, Ear Pain, Running Nose, Sinus Pain Respiratory: COMPLAINS OF: Cough, Wheezing, Sputum production, Shortness of breath, DENIES: Hemoptysis Cardiovascular: COMPLAINS OF: Dyspnea on Exertion, DENIES: Chest pain, Palpitations, Syncope, Lower Extremity Edema Gastrointestinal: DENIES: Abdominal pain, Diarrhea, Nausea, Vomiting Integumentary: DENIES: Abnormal pigmentation Hematologic/lymphatic: DENIES: Bruising Psychiatric: DENIES: Anxiety Past Family Social History Past Medical History Per chart review -COPD Past Surgical History per chart review -hernia repair in 1992 Allergies: Coded Allergies: No Known Allergies (Verified , 12/20/16) Family History per chart review -father of [place], COPD -Mother has Alzheimer disease Social History per chart review -4 years of high school education, worked in [employer] -mainly quit smoking in apr 2016 but still "smokes a few sometimes" -previously reported little alcohol use Physical Exam Vital Signs Vital Signs Date Time Temp Pulse Resp B/P (MAP) Pulse Ox O2 Delivery O2 Flow Rate FiO2 12/21/16 08:02 95 Nasal Cannula 4.00 12/21/16 07:00 97.9 112 24 112/97 (102) 93 12/21/16 07:00 112 12/21/16 07:00 94 Nasal Cannula 2.00 12/21/16 03:00 98.1 96 20 136/77 (96) 95 12/21/16 03:00 95 12/21/16 00:36 99 Nasal Cannula 2.00 12/20/16 23:00 99 12/20/16 23:00 98.0 98 20 131/90 (104) 99 12/20/16 20:08 95 Nasal Cannula 4.00 12/20/16 19:00 Nasal Cannula 4.00 12/20/16 19:00 98.3 109 28 131/55 (80) 92 12/20/16 17:04 12/20/16 17:00 97 Nasal Cannula 4.00 12/20/16 17:00 110 12/20/16 17:00 110 12/20/16 17:00 97.5 110 17 155/95 (115) 97 12/20/16 16:45 96 Nasal Cannula 4.00 12/20/16 16:40 100 12/20/16 15:08 99 16 105/84 (91) 99 BiPAP 35 12/20/16 15:06 35 12/20/16 14:51 100 35 12/20/16 14:40 100 35 12/20/16 13:52 40 12/20/16 13:51 109 22 125/75 (92) 100 BiPAP 40 12/20/16 13:32 99 40 12/20/16 12:53 106 24 125/75 (92) 95 Nasal Cannula 3.50 12/20/16 12:34 99 Aerosol Mask 5.00 12/20/16 12:34 99 Aerosol Mask 5.00 12/20/16 12:32 98.2 98 27 125/75 (92) 99 Aerosol Mask 5.00 Physical Exam GENERAL: Patient seen sitting up in bed on BiPAP machine breathing laboriously. Somnolent and unresponsive to questions/stimulations initially. today he is alert and conversant and speaking in full sentences SKIN: Hyperpigmented, thick callouses noted on plantar surfaces of both feet. No bleeding, draining, erythema. HEAD: Atraumatic. Normocephalic. EYES: EOMI ENT: Unable to assess oropharynx initially, no obvious bleeding or lacerations. NECK: Trachea midline. No JVD or lymphadenopathy. Supple, nontender, no meningeal signs. CARDIOVASCULAR: Regular rate and rhythm without murmurs, gallops, or rubs. distant heart sounds RESPIRATORY: Diffuse wheezing bilaterally, prolonged expiratory phase noted. fair air movement overall but seems chronic for him GASTROINTESTINAL: Abdomen soft, nondistended. No hepato-splenomegaly, or palpable masses. No guarding. MUSCULOSKELETAL: Extremities without clubbing, cyanosis, or edema. No joint tenderness, effusion, or edema noted. NEUROLOGICAL: Patient nonfocal and speaking normally today Laboratory Laboratory Tests Test 12/20/16 12:30 12/20/16 12:42 12/20/16 17:40 12/21/16 04:50 White Blood Count 9.4 13.1 Red Blood Count 4.99 4.68 Hemoglobin 14.4 13.6 Hematocrit 43.6 41.2 Mean Corpuscular Volume 87.4 88.1 Mean Corpuscular Hemoglobin 28.9 29.1 Mean Corpuscular Hemoglobin Concent 33.1 33.0 Red Cell Distribution Width 15.4 15.2 Platelet Count 337 290 Mean Platelet Volume 7.4 7.4 Neutrophils (%) (Auto) 71.1 Lymphocytes (%) (Auto) 15.3 Monocytes (%) (Auto) 10.3 Eosinophils (%) (Auto) 2.4 Basophils (%) (Auto) 0.9 Neutrophils # (Auto) 6.7 Lymphocytes # (Auto) 1.4 Monocytes # (Auto) 1.0 Eosinophils # (Auto) 0.2 Basophils # (Auto) 0.1 CBC Comment DIFF FINAL AUTO DIFF Differential Comment FINAL DIFF MANUAL Prothrombin Time 11.0 11.1 Prothromb Time International Ratio 1.0 1.0 Activated Partial Thromboplast Time 30.7 27.5 Blood Urea Nitrogen 15 20 Creatinine 0.72 0.88 Random Glucose 102 130 Total Protein 7.4 7.1 Albumin 3.6 3.3 Calcium Level 8.9 8.7 Alkaline Phosphatase 154 129 Aspartate Amino Transf (AST/SGOT) 25 28 Alanine Aminotransferase (ALT/SGPT) 22 25 Total Bilirubin 0.5 0.3 Sodium Level 137 139 Potassium Level 4.4 4.5 Chloride Level 102 103 Carbon Dioxide Level 26.4 27.0 Anion Gap 9 9 Estimat Glomerular Filtration Rate 112 89 Lactic Acid Level 1.3 Total Creatine Kinase 204 Creatine Kinase MB 5.8 Troponin I LESS THAN 0.02 B-Type Natriuretic Peptide 12 Blood Gas Puncture Site L RAD VEIN RT RADIAL Blood Gas Patient Temperature 98.6 98.6 Venous Blood pH 7.31 Venous Blood Partial Pressure CO2 57 Venous Blood Partial Pressure O2 36 Venous Blood HCO3 28 Venous Blood Oxygen Saturation 63 Venous Blood Oxygen Content 12.9 Venous Blood Base Excess 2.2 Oxygen Delivery Device AEROSOL MASK NASAL CANNULA Blood Gas Liter Flow 5 5 Blood Gas HCO3 27 Blood Gas Base Excess 1.7 Blood Gas Oxygen Saturation 91 Arterial Blood pH 7.31 Arterial Blood Partial Pressure CO2 57 Arterial Blood Partial Pressure O2 74 Arterial Blood Oxygen Content 18.4 Arterial Blood Carboxyhemoglobin 2.4 Arterial Blood Methemoglobin 1.1 Blood Gas Hemoglobin 14.5 Differential Total Cells Counted 100 Neutrophils % (Manual) 79 Band Neutrophils % 16 Lymphocytes % 4 Monocytes % 1 Neutrophils # (Manual) 12.4 Platelet Estimate NORMAL Platelet Morphology Comment NORMAL Red Cell Morphology Comment NORMAL Phosphorus Level 3.5 Magnesium Level 2.2 Date/Time Source Procedure Growth Status 12/20/16 20:15 Blood Peripheral Aerobic Blood Culture Pending Received 12/20/16 20:15 Blood Peripheral Anaerobic Blood Culture Pending Received 12/21/16 08:50 Sputum Endotracheal Gram Stain Pending Received 12/21/16 08:50 Sputum Endotracheal Sputum Culture Pending Received Result Diagram: 12/21/16 0450 12/21/16 0450 Imaging Last 24 hours Impressions Chest X-Ray 12/20/16 1225 Signed Impressions: Service Date/Time: Tuesday, December 20, 2016 12:38 - CONCLUSION: Severe emphysema. MD Grace Duval VTE Risk Assessment Grace VTE Risk Assessment: No/Low Risk (score <= 1) Caprini Risk Assessment Model Point Value = 1 Point Value = 2 Point Value = 3 Point Value = 5 Age 41-60 Minor surgery BMI > 25 kg/m2 Swollen legs Varicose veins or History of unexplained or recurrent spontaneous Oral contraceptives or hormone replacement Sepsis (< 1 month) Serious lung disease, including pneumonia (< 1 month) Abnormal pulmonary function Acute myocardial infarction Congestive heart failure (< 1 month) History of inflammatory bowel disease Medical patient at bed rest Age 61-74 Arthroscopic surgery Major open surgery (> 45 min) Laparoscopic surgery (> 45 min) Malignancy Confined to bed (> 72 hours) Immobilizing plaster cast Central venous access Age >= 75 History of VTE Family history of VTE Factor V Leiden Prothrombin [id number] Lupus anticoagulant Anticardiolipin antibodies Elevated serum homocysteine Heparin-induced thrombocytopenia Other congenital or acquired thrombophilia Stroke (< 1 month) Elective arthroplasty Hip, pelvis, or leg fracture Acute spinal cord injury (< 1 month) Prophylaxis Regimen Total Risk Factor Score Risk Level Prophylaxis Regimen 0-1 Low Early ambulation 2 Moderate Order ONE of the following: *Sequential Compression Device (SCD) *Heparin 5000 units SQ BID 3-4 Higher Order ONE of the following medications: *Heparin 5000 units SQ TID *Enoxaparin/Lovenox 40 mg SQ daily (WT < 150 kg, CrCl > 30 mL/min) *Enoxaparin/Lovenox 30 mg SQ daily (WT < 150 kg, CrCl > 10-29 mL/min) *Enoxaparin/Lovenox 30 mg SQ BID (WT < 150 kg, CrCl > 30 mL/min) AND/OR *Sequential Compression Device (SCD) 5 or more Highest Order ONE of the following medications: *Heparin 5000 units SQ TID (Preferred with Epidurals) *Enoxaparin/Lovenox 40 mg SQ daily (WT < 150 kg, CrCl > 30 mL/min) *Enoxaparin/Lovenox 30 mg SQ daily (WT < 150 kg, CrCl > 10-29 mL/min) *Enoxaparin/Lovenox 30 mg SQ BID (WT < 150 kg, CrCl > 30 mL/min) AND *Sequential Compression Device (SCD) Assessment and Plan Assessment and Plan 61 yo WM being admitted to ICU for respiratory failure, AMS. Problem List: (1) Emphysema ICD Codes: J43.9 - Emphysema, unspecified Status: Acute Plan: he was not getting any benefit from his advair as he was not using it properly. he does like his nebulizer so will try Pulmicort nebulized solution. his outpt Physician can keep him on his duonebs plus pulmicort. some COPDers are steroid responsive and he may do well with an inhaled steroid. can investigate if his Insurance may cover longer acting inhalers prior to discharge. considered transferring to a medical floor but he is very weak and not ambulating well so will watch him today and consider transfer tomorrow (2) Respiratory failure ICD Codes: J96.90 - Respiratory failure, unspecified, unspecified whether with hypoxia or hypercapnia Status: Acute Plan: Increased Oxygen requirement on admission - O2 saturation 95% on BiPAP VBG pH 7.3 ABG ordered CXR showed severe emphysema, no infiltrates no leukocytosis on CBC Azithromycin 500 mg q24hr given in ED Prick Stitcher consulted, agreed should be placed in ICU especially as he is not alert (3) Altered mental status ICD Codes: R41.82 - Altered mental status, unspecified Status: Acute Plan: 2/2 to respiratory failure vs medication side effect vs sepsis -patient more responsive prior to interview - 2 mg Ativan given on ED arrival -No electrolyte abnormalities -Blood cultures pending (4) FEN Status: Acute Plan: NPO on admission, regular diet now. consider supplements as he is cachectic overall Lovenox for DVT prophylaxis Physician Certification 2 Midnight Certification Type: Admission for Inpatient Services Order for Inpatient Services The services are ordered in accordance with Medicare regulations or non- Medicare payer requirements, as applicable. In the case of services not specified as inpatient-only, they are appropriately provided as inpatient services in accordance with the 2-midnight benchmark. Estimated LOS (days): 3 3 days is the estimated time the patient will need to remain in the hospital, assuming treatment plan goals are met and no additional complications. Post-Hospital Plan: Home Problem Qualifiers (1) Respiratory failure: Qualified Codes: J96.21 - Acute and chronic respiratory failure with hypoxia (2) Altered mental status: Qualified Codes: R40.0 - Somnolence (3) Emphysema: Qualified Codes: J43.9 - Emphysema, unspecified Devi Thompson MD Dec 21, 2016 10:32
[2016-12-21 10:50] LABS: BLOOD, URINE MOD (NEG); COMMENT (UR) CULT NOT INDICATED; CULTURE IF INDICATED CULT NOT INDICATED; GLUCOSE,URINE TRACE mg/dL (NEG); KETONE, URINE NEG (NEG); NITRITE,URINE NEG (NEG); PH, URINE 5.5 (5.0-8.5); URINE COLOR LIGHT-YELLOW (YELLW/STRAW)
[2016-12-21] MEDS: AZITHROMYCIN INJ 500 MG in SODIUM CHLOR 0.9% 250 ML INJ 250 ML IV SCH (12:07)
[2016-12-21] MEDS ORDERED: CHLORHEXIDINE GLUCONATE 2 % 1 PACK (2 CLOTHS)(extra cloths) TOPICAL PRN (12:15)
[2016-12-21] MEDS: TIOTROPIUM BROMIDE 18 MCG INH INH SCH (13:03)
[2016-12-21] MEDS: BUDESONIDE-FORMOTEROL 160/4.5 MCG INHALER INH SCH ×2 (13:04→20:23)
[2016-12-21] MEDS: ENOXAPARIN SODIUM 40 MG/0.4 ML SYRINGE SQ SCH (17:05)
--- NOTE | 2016-12-21 18:34 | MB ---
cc: MARIELY BAILEY DATE OF CONSULTATION 12/21/[address] Magdalene Dupree REASON FOR CONSULTATION Severe emphysema. HISTORY OF THE PRESENT ILLNESS Mr. Can is a 61-year-old male with longstanding history of COPD and emphysema. He follows at [facility] and he said recently he went over there because of worsening of shortness of breath and the bus was very cold and this made his wheezing worse. He has cough and congestion. Not able to bring up much phlegm. Has been having worsening of the wheezing and shortness of breath. Because of worsening breathing he came to the emergency room. He had a workup done. Initially his blood gas shows pH 7.31, pCO2 57, pO2 74 on 5 liters nasal cannula. He was given Ativan in the emergency room. Because of the worsening of the shortness of breath which made his breathing worse. He had reversal of the Ativan and required BiPAP treatment. Currently he is on nasal cannula. At his baseline he only walks a few steps. Does not use any oxygen. Continues to smoke cigarettes and marijuana. PAST MEDICAL HISTORY Significant for: A history of COPD. MEDICATIONS He is currently takin. Azithromycin 500 mg a day. 2. Pulmicort nebulizer treatment. 3. Symbicort twice a day. 4. Famotidine 20 mg a day. 5. Insulin coverage. 6. Albuterol/Atrovent nebulizer treatment. 7. Solu-Medrol 40 mg q.6h. 8. Cefepime 2 grams q. 12-hour. 9. [place] for pain. ALLERGIES NO KNOWN DRUG ALLERGIES. SOCIAL HISTORY Has a long history of smoking for 42 years. He has cut down few cigarettes a day. Smokes marijuana and drinks occasionally. 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 FAMILY HISTORY He is single, never , lives alone. He has two brothers one lives in [place] and one in [place]. REVIEW OF SYSTEMS He walks only short distances. Weight is stable. No hemoptysis. No DVT or pulmonary embolism. Denies any coronary artery disease. PHYSICAL EXAMINATION GENERAL: Thin built, elderly male, mild short of breath. VITAL SIGNS: Blood pressure 126/76, heart rate 84, respirations 20, temperature 98.1, HEENT: Examination pupils are equal and reactive to light. Oral mucosa and normal mucosa normal. NECK: Supple. JVP not raised. CHEST: He has hyperresonant chest, a few rhonchi. CARDIOVASCULAR: S1-S2 normal. ABDOMEN: Soft, nondistended. Bowel sounds are present. EXTREMITIES: No edema. IMPRESSION 1. COPD exacerbation. 2. Respiratory insufficiency. 3. Nicotine use. 4. Bronchitis. PLAN I discussed with the patient we will give him aerosol treatment, IV Solu-Medrol. Continue antibiotic. Supplement his oxygen. Use C-PAP as needed. Will Check Pulmonary function study. Advised him strongly to quit smoking. Further treatment will depend on the course in the hospital. Thank you Dr. Magdalene Dupree for this consultation. MD LOWELL Seay/MARIA G /3:47 PM /6:17 PM MTDD
[2016-12-21] MEDS: MUPIROCIN 2% OINT 1 APPLIC/GM SYR NASAL SCH (20:09)
--- NOTE | 2016-12-21 20:19 | EKG ---
Date Performed: 12/20/2016 Time Performed: 12:54:26 PTAGE: 61 years EKG: Sinus rhythm LOW QRS VOLTAGE IN PRECORDIAL LEADS LEFT ANTERIOR FASCICULAR BLOCK ABNORMAL ECG PREVIOUS TRACING : 05/26/2010 13.43 DOCTOR: Kranthi Elliott Interpretating Date/Time 12/21/2016 20:16:02
[2016-12-21] MEDS: RESP: BUDESONIDE 0.5 MG/2 ML NEB NEB SCH (20:30)
[2016-12-22] VITALS (12 sets, daily range): BP systolic 111–157; BP diastolic 68–88; PULSE 90–122; RESP 20–23; TEMP 97.6–98.2; O2SAT 92–98
[2016-12-22] MEDS: RESP: ALBUTEROL 2.5 MG/IPRATROPIUM 0.5 MG NEB (SCH) INH ×6 (00:31→19:33)
[2016-12-22] MEDS: CHLORHEXIDINE GLUCONATE 2 % 1 PACK (2 CLOTHS)(taper/protocol) TOPICAL SCH (04:00)
[2016-12-22] MEDS: CHLORHEXIDINE GLUCONATE 2 % 1 PACK (2 CLOTHS) TOP SCH (04:00)
[2016-12-22] MEDS: methylPREDNISolone SOD SUCC 40 MG/1 ML VIAL IV PUSH SCH ×4 (05:25→23:35)
[2016-12-22] MEDS: CEFEPIME INJ 2,000 MG in SODIUM CHLORIDE 0.9% INJ 100 ML IV SCH ×2 (05:25→18:23)
[2016-12-22] MEDS: INSULIN NovoLIN REGULAR SUPPLEMENTAL SCALE SQ SCH ×4 (06:25→21:00)
[2016-12-22] MEDS: RESP: BUDESONIDE 0.5 MG/2 ML NEB NEB SCH ×2 (07:21→19:33)
[2016-12-22] MEDS: CHLORHEXIDINE 0.12% (ORAL KIT) 15 ML CUP MT SCH ×2 (07:40→20:00)
[2016-12-22 07:55] LABS: AUTOMATED NEUTROPHIL # 24.2 TH/MM3 (1.8-7.7); HEMATOCRIT 41.7 % (39.0-51.0); HEMO FLAGS DIFF FINAL; LYMPH % 2.8 % (9.0-44.0); LYMPHOCYTE # 0.7 TH/MM3 (1.0-4.8); MEAN CELL VOLUME 88.1 FL (80.0-100.0); MEAN CORPUSCULAR HEMOGLOBIN 29.2 PG (27.0-34.0); MEAN CORPUSCULAR HGB CONC 33.1 % (32.0-36.0); MONO % 3.6 % (0.0-8.0); NEUT % 93.6 % (16.0-70.0); PLATELET COUNT 320 TH/MM3 (150-450); RED BLOOD COUNT 4.74 MIL/MM3 (4.50-5.90); RED CELL DISTRIBUTION WIDTH 15.7 % (11.6-17.2); WHITE BLOOD COUNT 25.8 TH/MM3 (4.0-11.0)
[2016-12-22] MEDS: MUPIROCIN 2% OINT 1 APPLIC/GM SYR NASAL SCH ×2 (08:02→21:00)
[2016-12-22] MEDS: BUDESONIDE-FORMOTEROL 160/4.5 MCG INHALER INH SCH ×2 (08:02→22:17)
[2016-12-22] MEDS: FAMOTIDINE 20 MG TAB PO SCH ×2 (08:03→22:18)
[2016-12-22] MEDS: TIOTROPIUM BROMIDE 18 MCG INH INH SCH (08:03)
[2016-12-22] MEDS: SODIUM CHLORIDE 0.9% FLUSH 10 ML FLUSH IV FLUSH SCH ×2 (08:03→22:19)
[2016-12-22] MEDS: ARTIFICIAL TEARS OPTH SOLN 15 ML BTL EACH EYE SCH ×3 (08:03→18:24)
[2016-12-22] MEDS: DOCUSATE SODIUM 50 MG/SENNA 8.6 MG TAB PO SCH ×2 (08:03→22:18)
[2016-12-22 08:21] LABS: BICARBONATE 31.7 MEQ/L (21.0-32.0); POTASSIUM 3.8 MEQ/L (3.5-5.1)
--- NOTE | 2016-12-22 11:09 | HHI.FPPN ---
Objective Vitals Vital Signs Date Time Temp Pulse Resp B/P (MAP) Pulse Ox O2 Delivery O2 Flow Rate FiO2 12/22/16 07:21 94 Nasal Cannula 2.00 12/22/16 07:00 90 12/22/16 07:00 98.1 90 22 133/78 (96) 92 12/22/16 07:00 92 Nasal Cannula 3.00 12/22/16 03:00 97.6 109 22 111/68 (82) 97 12/22/16 03:00 98 12/22/16 03:00 97 Nasal Cannula 3.00 12/21/16 23:00 96 Nasal Cannula 3.00 12/21/16 23:00 106 12/21/16 23:00 97.4 101 22 101/57 (72) 96 12/21/16 20:31 97 Nasal Cannula 3.00 12/21/16 19:00 122 12/21/16 19:00 95 Nasal Cannula 3.00 12/21/16 19:00 97.8 103 22 137/82 (100) 95 12/21/16 15:00 84 12/21/16 15:00 98.1 89 24 126/76 (93) 95 I/O 12/21/16 12/21/16 12/21/16 12/22/16 12/22/16 12/22/16 07:00 15:00 23:00 07:00 15:00 23:00 Intake Total 1060 ml 250 ml 1115 ml 580 ml Output Total 820 ml 1425 ml 650 ml Balance 240 ml 250 ml -310 ml -70 ml Intake Oral 120 ml 300 ml 480 ml IV Total 940 ml 250 ml 815 ml 100 ml Output Urine Total 820 ml 1425 ml 650 ml Stool Total 0 ml 0 ml Result Diagram: 12/22/16 0543 12/22/16 0543 A/P Assessment and Plan 61 yo WM being admitted to ICU for respiratory failure, AMS. Problem List: (1) Emphysema ICD Codes: J43.9 - Emphysema, unspecified Status: Acute Plan: he was not getting any benefit from his advair as he was not using it properly. he does like his nebulizer so will try Pulmicort nebulized solution. his outpt Physician can keep him on his duonebs plus pulmicort. some COPDers are steroid responsive and he may do well with an inhaled steroid. can investigate if his Insurance may cover longer acting inhalers prior to discharge. considered transferring to a medical floor but he is very weak and not ambulating well so will watch him today and consider transfer tomorrow (2) Respiratory failure ICD Codes: J96.90 - Respiratory failure, unspecified, unspecified whether with hypoxia or hypercapnia Status: Acute Plan: Increased Oxygen requirement on admission - O2 saturation 95% on BiPAP VBG pH 7.3 ABG ordered CXR showed severe emphysema, no infiltrates no leukocytosis on CBC Azithromycin 500 mg q24hr given in ED Job Tracer consulted, agreed should be placed in ICU especially as he is not alert (3) Altered mental status ICD Codes: R41.82 - Altered mental status, unspecified Status: Acute Plan: 2/2 to respiratory failure vs medication side effect vs sepsis -patient more responsive prior to interview - 2 mg Ativan given on ED arrival -No electrolyte abnormalities -Blood cultures pending (4) FEN Status: Acute Plan: NPO on admission, regular diet now. consider supplements as he is cachectic overall Lovenox for DVT prophylaxis Problem Qualifiers (1) Emphysema: Qualified Codes: J43.9 - Emphysema, unspecified (2) Respiratory failure: Qualified Codes: J96.21 - Acute and chronic respiratory failure with hypoxia (3) Altered mental status: Qualified Codes: R40.0 - Somnolence Terra Medel MD R2 Dec 22, 2016 11:09
[2016-12-22] MEDS: AZITHROMYCIN INJ 500 MG in SODIUM CHLOR 0.9% 250 ML INJ 250 ML IV SCH (12:49)
--- NOTE | 2016-12-22 12:57 | HHI.FPPN ---
Subjective Remarks Mr Can still complains of being SOB. He 'feels winded" when he sits up in bed and moves around to any extent. He is not any worse than yesterday. He was able to speak full sentences when at rest today which was a definite improvement from admission. He does not have other complaints and has a negative ROS for other problems today. He was concerned about taking ensure or any milk products as he has been told that milk products can make respiratory problems worse. He was encouraged to take dietary supplements as he is cachectic and losing weight perhaps from his severe COPD. Objective Vitals Vital Signs Date Time Temp Pulse Resp B/P (MAP) Pulse Ox O2 Delivery O2 Flow Rate FiO2 12/22/16 11:00 107 12/22/16 11:00 93 Nasal Cannula 3.00 12/22/16 11:00 98.1 109 23 138/81 (100) 93 12/22/16 07:21 94 Nasal Cannula 2.00 12/22/16 07:00 90 12/22/16 07:00 98.1 90 22 133/78 (96) 92 12/22/16 07:00 92 Nasal Cannula 3.00 12/22/16 03:00 97.6 109 22 111/68 (82) 97 12/22/16 03:00 98 12/22/16 03:00 97 Nasal Cannula 3.00 12/21/16 23:00 96 Nasal Cannula 3.00 12/21/16 23:00 106 12/21/16 23:00 97.4 101 22 101/57 (72) 96 12/21/16 20:31 97 Nasal Cannula 3.00 12/21/16 19:00 122 12/21/16 19:00 95 Nasal Cannula 3.00 12/21/16 19:00 97.8 103 22 137/82 (100) 95 12/21/16 15:00 84 12/21/16 15:00 98.1 89 24 126/76 (93) 95 I/O 12/21/16 12/21/16 12/21/16 12/22/16 12/22/16 12/22/16 07:00 15:00 23:00 07:00 15:00 23:00 Intake Total 1060 ml 250 ml 1115 ml 580 ml Output Total 820 ml 1425 ml 650 ml Balance 240 ml 250 ml -310 ml -70 ml Intake Oral 120 ml 300 ml 480 ml IV Total 940 ml 250 ml 815 ml 100 ml Output Urine Total 820 ml 1425 ml 650 ml Stool Total 0 ml 0 ml Result Diagram: 12/22/1654212/22/16542 Objective Remarks GENERAL: Patient seen sitting up in bed speaking in full sentences. today he is alert and conversant. long hilario and hair and quite cachectic. SKIN: Hyperpigmented, thick callouses noted on plantar surfaces of both feet. No bleeding, draining, erythema. HEAD: Atraumatic. Normocephalic. EYES: EOMI ENT:no obvious bleeding or lacerations. NECK: Trachea midline. No JVD or lymphadenopathy. Supple, nontender, no meningeal signs. CARDIOVASCULAR: Regular rate and rhythm without murmurs, gallops, or rubs. distant heart sounds RESPIRATORY: Diffuse wheezing bilaterally, prolonged expiratory phase noted. fair to poor air movement overall but seems chronic for him GASTROINTESTINAL: Abdomen soft, nondistended. No hepato-splenomegaly, or palpable masses. No guarding. MUSCULOSKELETAL: Extremities without clubbing, cyanosis, or edema. No joint tenderness, effusion, or edema noted. NEUROLOGICAL: Patient nonfocal and speaking normally today Urinary Catheter: No Vascular Central Line Catheter: No A/P Assessment and Plan 61 yo WM being admitted for respiratory failure. Improving overall today but still SOB Discharge Planning He may need days to even a week to improve to baseline. He has severe COPD and these pts can take awhile to improve. Need to consider oxygen for him as it can extend his life Problem List: (1) Emphysema ICD Codes: J43.9 - Emphysema, unspecified Status: Acute Plan: he was not getting any benefit from his advair as he was not using it properly. he does like his nebulizer so will try Pulmicort nebulized solution. his outpt Physician can keep him on his duonebs plus Pulmicort. some COPDers are steroid responsive and he may do well with an inhaled steroid. can investigate if his Insurance may cover longer acting inhalers prior to discharge. transferring to a medical floor but he is weak and not ambulating well he is slow to improve and his lung exam is not better than yesterday (2) FEN Status: Acute Plan: regular diet now. as he is cachectic overall, encouraged to take his supplements as he is not eating well Lovenox for DVT prophylaxis (3) Respiratory failure ICD Codes: J96.90 - Respiratory failure, unspecified, unspecified whether with hypoxia or hypercapnia Status: Acute Plan: Increased Oxygen requirement on admission - O2 saturation 95% on BiPAP VBG pH 7.3 ABG ordered CXR showed severe emphysema, no infiltrates no leukocytosis on CBC Azithromycin 500 mg q24hr given in ED Bander Operator consulted,placed in ICU initially especially as he was not alert he was very sensitive to benzos and woke up once they were reversed Problem Qualifiers (1) Emphysema: Qualified Codes: J43.9 - Emphysema, unspecified (2) Respiratory failure: Qualified Codes: J96.21 - Acute and chronic respiratory failure with hypoxia Devi Thompson MD Dec 22, 2016 12:57
[2016-12-22] MEDS: ENOXAPARIN SODIUM 40 MG/0.4 ML SYRINGE SQ SCH (17:15)
--- NOTE | 2016-12-22 19:17 | HHI.PR ---
Subjective Remarks 61 YOWM with COPD exac, Nicotine use hypoxia Desaturates quickly Could't perform PFT has cough, difficult to expactorate No Fever Objective Vital Signs Vital Signs Date Time Temp Pulse Resp B/P (MAP) Pulse Ox O2 Delivery O2 Flow Rate FiO2 12/22/16 16:24 95 Nasal Cannula 2.00 12/22/16 15:25 122 22 140/88 (105) 92 12/22/16 15:21 90 Nasal Cannula 2.00 12/22/16 15:20 118 12/22/16 11:00 107 12/22/16 11:00 93 Nasal Cannula 3.00 12/22/16 11:00 98.1 109 23 138/81 (100) 93 12/22/16 07:21 94 Nasal Cannula 2.00 12/22/16 07:00 90 12/22/16 07:00 98.1 90 22 133/78 (96) 92 12/22/16 07:00 92 Nasal Cannula 3.00 12/22/16 03:00 97.6 109 22 111/68 (82) 97 12/22/16 03:00 98 12/22/16 03:00 97 Nasal Cannula 3.00 12/21/16 23:00 96 Nasal Cannula 3.00 12/21/16 23:00 106 12/21/16 23:00 97.4 101 22 101/57 (72) 96 12/21/16 20:31 97 Nasal Cannula 3.00 I/O 12/21/16 12/21/16 12/21/16 12/22/16 12/22/16 12/22/16 07:00 15:00 23:00 07:00 15:00 23:00 Intake Total 1060 ml 250 ml 1115 ml 580 ml 730 ml 120 ml Output Total 820 ml 1425 ml 650 ml 500 ml Balance 240 ml 250 ml -310 ml -70 ml 230 ml 120 ml Intake Oral 120 ml 300 ml 480 ml 480 ml 120 ml IV Total 940 ml 250 ml 815 ml 100 ml 250 ml Output Urine Total 820 ml 1425 ml 650 ml 500 ml Stool Total 0 ml 0 ml 0 ml Result Diagram: 12/22/16 0543 12/22/16 0543 Objective Remarks GENERAL:MBMN WM Mild SOB SKIN: Warm and dry. HEAD: Normocephalic. EYES: No scleral icterus. No injection or drainage. NECK: Supple, trachea midline. No JVD or lymphadenopathy. CARDIOVASCULAR: Regular rate and rhythm without murmurs, gallops, or rubs. RESPIRATORY: Breath sounds equal bilaterally. No accessory muscle use. GASTROINTESTINAL: Abdomen soft, non-tender, nondistended. MUSCULOSKELETAL: No cyanosis, or edema. BACK: Nontender without obvious deformity. No CVA tenderness. A/P Assessment and Plan COPD Exac Bronchitis Nicotine Use Hypoxia PLAN: IV Solumedrol Supplement 02 Aerosol nebs Spiriva daily Cont Abx Will need home 02. Rony Hermosillo MD Dec 22, 2016 19:17
[2016-12-23] VITALS (26 sets, daily range): BP systolic 109–150; BP diastolic 69–86; PULSE 86–119; RESP 18–20; TEMP 97.8–98.5; O2SAT 92–99
[2016-12-23] MEDS: RESP: ALBUTEROL 2.5 MG/IPRATROPIUM 0.5 MG NEB (SCH) INH ×6 (00:08→20:38)
[2016-12-23] MEDS: CHLORHEXIDINE GLUCONATE 2 % 1 PACK (2 CLOTHS)(taper/protocol) TOPICAL SCH (04:00)
[2016-12-23] MEDS: CHLORHEXIDINE GLUCONATE 2 % 1 PACK (2 CLOTHS) TOP SCH (04:00)
[2016-12-23] MEDS: methylPREDNISolone SOD SUCC 40 MG/1 ML VIAL IV PUSH SCH ×3 (06:13→17:28)
[2016-12-23] MEDS: CEFEPIME INJ 2,000 MG in SODIUM CHLORIDE 0.9% INJ 100 ML IV SCH ×2 (06:14→17:29)
[2016-12-23] MEDS: INSULIN NovoLIN REGULAR SUPPLEMENTAL SCALE SQ SCH ×4 (06:21→21:00)
[2016-12-23 06:52] LABS: HEMATOCRIT 43.1 % (39.0-51.0); MEAN CELL VOLUME 87.7 FL (80.0-100.0); MEAN CORPUSCULAR HEMOGLOBIN 28.6 PG (27.0-34.0); MEAN CORPUSCULAR HGB CONC 32.6 % (32.0-36.0); PLATELET COUNT 286 TH/MM3 (150-450); RED BLOOD COUNT 4.91 MIL/MM3 (4.50-5.90); RED CELL DISTRIBUTION WIDTH 15.1 % (11.6-17.2); REVIEW FLAG FINAL; WHITE BLOOD COUNT 17.4 TH/MM3 (4.0-11.0)
[2016-12-23 07:17] LABS: BICARBONATE 33.6 MEQ/L (21.0-32.0)
[2016-12-23] MEDS: RESP: BUDESONIDE 0.5 MG/2 ML NEB NEB SCH ×2 (07:46→20:38)
[2016-12-23] MEDS: CHLORHEXIDINE 0.12% (ORAL KIT) 15 ML CUP MT SCH ×2 (08:00→20:00)
[2016-12-23] MEDS: SODIUM CHLORIDE 0.9% FLUSH 10 ML FLUSH IV FLUSH SCH ×2 (09:00→21:03)
[2016-12-23] MEDS ORDERED: NEBULIZER1 MI1 (10:20)
[2016-12-23] MEDS: FAMOTIDINE 20 MG TAB PO SCH ×2 (10:44→21:02)
[2016-12-23] MEDS: DOCUSATE SODIUM 50 MG/SENNA 8.6 MG TAB PO SCH ×2 (10:45→21:02)
[2016-12-23] MEDS: TIOTROPIUM BROMIDE 18 MCG INH INH SCH (10:46)
[2016-12-23] MEDS: MUPIROCIN 2% OINT 1 APPLIC/GM SYR NASAL SCH ×2 (10:46→21:00)
[2016-12-23] MEDS: BUDESONIDE-FORMOTEROL 160/4.5 MCG INHALER INH SCH ×2 (10:47→21:02)
--- NOTE | 2016-12-23 10:47 | HHI.FPPN ---
Subjective Remarks Patient seen today on rounds - he had no acute events overnight and vitals were stable. Patient states he is breathing much better, feels that the CPT is helping. Was able to work with PT yesterday and ambulate fairly well. We discussed the likelihood of needing oxygen at home, patient welcomed this idea. Denies CP, worsening SOB, N/VD. (Gerald Watson MD R1) Objective Vitals Vital Signs Date Time Temp Pulse Resp B/P (MAP) Pulse Ox O2 Delivery O2 Flow Rate FiO2 12/23/16 07:48 93 Nasal Cannula 2.00 12/23/16 07:00 89 12/23/16 06:37 86 12/23/16 05:00 98 12/23/16 04:00 94 12/23/16 03:50 97 12/23/16 03:50 97.8 111 19 131/81 (98) 99 12/23/16 03:50 99 Nasal Cannula 2.00 12/23/16 02:00 104 12/23/16 01:00 106 12/23/16 00:00 108 12/22/16 23:40 106 12/22/16 23:40 98.0 100 21 135/82 (99) 98 12/22/16 23:40 98 Nasal Cannula 2.00 12/22/16 22:00 106 12/22/16 21:00 112 12/22/16 20:00 110 12/22/16 19:45 111 12/22/16 19:45 94 Nasal Cannula 2.00 12/22/16 19:45 98.2 117 20 157/86 (109) 94 12/22/16 16:24 95 Nasal Cannula 2.00 12/22/16 15:25 122 22 140/88 (105) 92 12/22/16 15:21 90 Nasal Cannula 2.00 12/22/16 15:20 118 12/22/16 11:00 107 12/22/16 11:00 93 Nasal Cannula 3.00 12/22/16 11:00 98.1 109 23 138/81 (100) 93 I/O 12/22/16 12/22/16 12/22/16 12/23/16 12/23/16 12/23/16 06:59 14:59 22:59 06:59 14:59 22:59 Intake Total 580 ml 730 ml 120 ml 240 ml Output Total 650 ml 500 ml 690 ml Balance -70 ml 230 ml 120 ml -450 ml Intake Oral 480 ml 480 ml 120 ml 240 ml IV Total 100 ml 250 ml Output Urine Total 650 ml 500 ml 690 ml Stool Total 0 ml 0 ml (Gerald Watson MD R1) Result Diagram: 12/23/1644812/23/16448 Objective Remarks GENERAL: Cachectic patient seen sitting up in bed speaking in full sentences. Alert and conversant. Appeared more comfortably from a respiratory standpoint today. SKIN: Hyperpigmented, thick callouses noted on plantar surfaces of both feet. No bleeding, draining, erythema. HEAD: Atraumatic. Normocephalic. EYES: EOMI ENT: No obvious bleeding or lacerations. NECK: Trachea midline. No JVD or lymphadenopathy. Supple, nontender, no meningeal signs. CARDIOVASCULAR: Regular rate and rhythm without murmurs, gallops, or rubs. distant heart sounds RESPIRATORY: Occasional wheezing but much more air movement today. Otherwise CTAB. Much improved GASTROINTESTINAL: Abdomen soft, nondistended. No hepato-splenomegaly, or palpable masses. No guarding. MUSCULOSKELETAL: Extremities without clubbing, cyanosis, or edema. No joint tenderness, effusion, or edema noted. NEUROLOGICAL: Patient nonfocal and speaking normally today (Gerald Watson MD R1) A/P Assessment and Plan 61 yo WM being admitted for respiratory failure. Improving overall today but still SOB Discharge Planning He may need days to even a week to improve to baseline. He has severe COPD and these pts can take awhile to improve. Need to consider oxygen for him as it can extend his life (Gerald Watson MD R1) Attending Attestation Patient seen and examined. Case reviewed and discussed with the resident team. Agree with plan of care as discussed with me and documented in the resident note. he reports he has disability from his COPD which is severe per indications here. he will benefit from oxygen at least 16 hours a day as that is one of the only things besides quitting smoking that extends life. he can do a walk test but his huge lung han on his CXR and all indications are he has severe COPD. He reports PFTs that were very poor though we don't have those records. (Devi Thompson MD) Problem List: (1) Respiratory failure ICD Codes: J96.90 - Respiratory failure, unspecified, unspecified whether with hypoxia or hypercapnia Status: Acute Plan: Increased Oxygen requirement on admission - O2 saturation 95% on BiPAP CXR showed severe emphysema, no infiltrates Breathing much improved today, was able to transfer to [facility] CPT helping Now on 2L NC Continues to have no leukocytosis Azithromycin 500 mg q24hr, Cefepime 2000 mg BID - day 4 of antibiotics Duonebs qh4 PRN, Pulmicort neb q12hr PRN, Spiriva 18mcg qd, Symbicort BID Solumedrol 40mg IV q6hr Will likely need home O2, ordered walk test today Orders for nebulizer machine placed in discharge - discussed with case management (2) Emphysema ICD Codes: J43.9 - Emphysema, unspecified Status: Acute Plan: he was not getting any benefit from his advair as he was not using it properly. he does like his nebulizer so will try Pulmicort nebulized solution. his outpt Physician can keep him on his duonebs plus Pulmicort. some COPDers are steroid responsive and he may do well with an inhaled steroid. can investigate if his Insurance may cover longer acting inhalers prior to discharge. (3) FEN Status: Acute Plan: heart healthy diet now. As he is cachectic overall, encouraged to take his supplements as he is not eating well Lovenox for DVT prophylaxis (Gerald Watson MD R1) Problem Qualifiers (1) Respiratory failure: Qualified Codes: J96.21 - Acute and chronic respiratory failure with hypoxia (2) Emphysema: Qualified Codes: J43.9 - Emphysema, unspecified Gerald Watson MD R1 Dec 23, 2016 10:47 Devi Thompson MD Dec 23, 2016 16:39
[2016-12-23] MEDS: ARTIFICIAL TEARS OPTH SOLN 15 ML BTL EACH EYE SCH ×3 (10:49→17:29)
[2016-12-23] MEDS: AZITHROMYCIN INJ 500 MG in SODIUM CHLOR 0.9% 250 ML INJ 250 ML IV SCH (13:01)
[2016-12-23] MEDS: RESP: ACETYLCYSTEINE 20% 30 ML NEB NEB SCH (16:00)
[2016-12-23] MEDS: ENOXAPARIN SODIUM 40 MG/0.4 ML SYRINGE SQ SCH (17:29)
--- NOTE | 2016-12-23 17:33 | HHI.PR ---
Subjective Remarks 61 YOWM with COPD exac, Nicotine use hypoxia Desaturates quickly has cough, difficult to expactorate No Fever Breathing little better Sat 96% on 2 LNC Objective Vital Signs Vital Signs Date Time Temp Pulse Resp B/P (MAP) Pulse Ox O2 Delivery O2 Flow Rate FiO2 12/23/16 17:00 113 12/23/16 16:00 87 12/23/16 15:54 95 Nasal Cannula 2.00 12/23/16 15:54 98.2 95 20 109/76 (87) 95 12/23/16 15:54 100 12/23/16 14:17 101 12/23/16 13:00 100 12/23/16 12:52 3.00 12/23/16 12:00 110 12/23/16 11:00 89 12/23/16 11:00 98.1 103 18 150/86 (107) 95 12/23/16 11:00 Room Air 2.00 12/23/16 11:00 101 12/23/16 10:00 94 12/23/16 09:00 90 12/23/16 08:00 86 12/23/16 07:48 93 Nasal Cannula 2.00 12/23/16 07:00 Room Air 2.00 12/23/16 07:00 89 12/23/16 07:00 98.4 94 20 143/84 (103) 95 12/23/16 06:37 86 12/23/16 05:00 98 12/23/16 04:00 94 12/23/16 03:50 97 12/23/16 03:50 97.8 111 19 131/81 (98) 99 12/23/16 03:50 99 Nasal Cannula 2.00 12/23/16 02:00 104 12/23/16 01:00 106 12/23/16 00:00 108 12/22/16 23:40 106 12/22/16 23:40 98.0 100 21 135/82 (99) 98 12/22/16 23:40 98 Nasal Cannula 2.00 12/22/16 22:00 106 12/22/16 21:00 112 12/22/16 20:00 110 12/22/16 19:45 111 12/22/16 19:45 94 Nasal Cannula 2.00 12/22/16 19:45 98.2 117 20 157/86 (109) 94 I/O 12/22/16 12/22/16 12/22/16 12/23/16 12/23/16 12/23/16 07:00 15:00 23:00 07:00 15:00 23:00 Intake Total 580 ml 730 ml 120 ml 240 ml 350 ml Output Total 650 ml 500 ml 690 ml Balance -70 ml 230 ml 120 ml -450 ml 350 ml Intake Oral 480 ml 480 ml 120 ml 240 ml IV Total 100 ml 250 ml 350 ml Output Urine Total 650 ml 500 ml 690 ml Stool Total 0 ml 0 ml Result Diagram: 12/23/1644812/23/16448 Objective Remarks GENERAL:MBMN WM Mild SOB SKIN: Warm and dry. HEAD: Normocephalic. EYES: No scleral icterus. No injection or drainage. NECK: Supple, trachea midline. No JVD or lymphadenopathy. CARDIOVASCULAR: Regular rate and rhythm without murmurs, gallops, or rubs. RESPIRATORY: Breath sounds equal bilaterally. No accessory muscle use. GASTROINTESTINAL: Abdomen soft, non-tender, nondistended. MUSCULOSKELETAL: No cyanosis, or edema. BACK: Nontender without obvious deformity. No CVA tenderness. A/P Assessment and Plan COPD Exac Bronchitis Nicotine Use Hypoxia PLAN: DC Solumedrol. Prednisone 10 mg tid Supplement 02 Aerosol nebs Spiriva daily Cont Abx Will need home 02. Rony Hermosillo MD Dec 23, 2016 17:33
[2016-12-23] MEDS: predniSONE 10 MG TAB PO SCH (17:47)
[2016-12-24] VITALS (26 sets, daily range): BP systolic 106–128; BP diastolic 70–92; PULSE 74–114; RESP 18–20; TEMP 97.6–98.2; O2SAT 92–98
[2016-12-24] MEDS: RESP: ALBUTEROL 2.5 MG/IPRATROPIUM 0.5 MG NEB (SCH) INH ×5 (01:06→15:53)
[2016-12-24] MEDS: RESP: ACETYLCYSTEINE 20% 30 ML NEB NEB SCH ×4 (01:06→15:53)
[2016-12-24] MEDS: CHLORHEXIDINE GLUCONATE 2 % 1 PACK (2 CLOTHS) TOP SCH (04:00)
[2016-12-24] MEDS: CHLORHEXIDINE GLUCONATE 2 % 1 PACK (2 CLOTHS)(taper/protocol) TOPICAL SCH (04:00)
[2016-12-24] MEDS: CEFEPIME INJ 2,000 MG in SODIUM CHLORIDE 0.9% INJ 100 ML IV SCH ×2 (06:04→16:49)
[2016-12-24] MEDS: INSULIN NovoLIN REGULAR SUPPLEMENTAL SCALE SQ SCH ×4 (06:37→21:00)
[2016-12-24 06:47] LABS: AUTOMATED NEUTROPHIL # 10.5 TH/MM3 (1.8-7.7); BASOPHIL # 0.1 TH/MM3 (0-0.2); BASOPHIL % 0.6 % (0.0-2.0); HEMO FLAGS DIFF FINAL; LYMPH % 6.2 % (9.0-44.0); LYMPHOCYTE # 0.8 TH/MM3 (1.0-4.8); MEAN CELL VOLUME 87.6 FL (80.0-100.0); MEAN CORPUSCULAR HEMOGLOBIN 29.6 PG (27.0-34.0); MEAN CORPUSCULAR HGB CONC 33.7 % (32.0-36.0); MONO % 6.9 % (0.0-8.0); NEUT % 86.3 % (16.0-70.0); PLATELET COUNT 246 TH/MM3 (150-450); RED BLOOD COUNT 4.91 MIL/MM3 (4.50-5.90); RED CELL DISTRIBUTION WIDTH 15.4 % (11.6-17.2); WHITE BLOOD COUNT 12.2 TH/MM3 (4.0-11.0)
[2016-12-24 07:06] LABS: BICARBONATE 34.9 MEQ/L (21.0-32.0); POTASSIUM 4.1 MEQ/L (3.5-5.1)
[2016-12-24] MEDS: FAMOTIDINE 20 MG TAB PO SCH ×2 (07:29→21:06)
[2016-12-24] MEDS: DOCUSATE SODIUM 50 MG/SENNA 8.6 MG TAB PO SCH ×2 (07:29→21:06)
[2016-12-24] MEDS: MUPIROCIN 2% OINT 1 APPLIC/GM SYR NASAL SCH ×2 (07:29→21:06)
[2016-12-24] MEDS: predniSONE 10 MG TAB PO SCH ×3 (07:29→16:49)
[2016-12-24] MEDS: ARTIFICIAL TEARS OPTH SOLN 15 ML BTL EACH EYE SCH ×3 (07:30→16:49)
[2016-12-24] MEDS: BUDESONIDE-FORMOTEROL 160/4.5 MCG INHALER INH SCH ×2 (07:30→21:00)
[2016-12-24] MEDS: TIOTROPIUM BROMIDE 18 MCG INH INH SCH (07:30)
[2016-12-24] MEDS: SODIUM CHLORIDE 0.9% FLUSH 10 ML FLUSH IV FLUSH SCH ×2 (07:34→21:00)
[2016-12-24] MEDS: RESP: BUDESONIDE 0.5 MG/2 ML NEB NEB SCH ×2 (07:43→20:07)
[2016-12-24] MEDS: CHLORHEXIDINE 0.12% (ORAL KIT) 15 ML CUP MT SCH ×2 (08:00→20:00)
--- NOTE | 2016-12-24 08:41 | HHI.FPPN ---
Subjective Remarks Patient seen by residents on rounds today. No acute events overnight, vitals were stable. Patient stated his breathing continues to improve and believes the breathing treatments/CPT to be working. He is coughing up "stinky stuff". His walking test "didn't go great" yesterday however, as patient became SOB fairly quickly. States he wants to start ambulating around the room but get SOB shortly after getting up. Denies CP, NVD. (Gerald Watson MD R1) Objective Vitals Vital Signs Date Time Temp Pulse Resp B/P (MAP) Pulse Ox O2 Delivery O2 Flow Rate FiO2 12/24/16 07:00 87 12/24/16 07:00 98 Nasal Cannula 2.00 12/24/16 07:00 97.6 86 20 115/76 (89) 98 12/24/16 06:00 85 12/24/16 05:26 88 12/24/16 04:13 80 12/24/16 03:45 98.1 106 19 128/72 (90) 96 12/24/16 03:45 107 12/24/16 03:45 96 Nasal Cannula 2.00 12/24/16 02:13 108 12/24/16 01:30 106 12/24/16 00:00 92 12/23/16 23:45 98.1 94 18 114/69 (84) 95 12/23/16 23:45 107 12/23/16 23:45 95 Nasal Cannula 2.00 12/23/16 22:00 108 12/23/16 21:00 100 12/23/16 20:45 92 Nasal Cannula 2.00 12/23/16 20:00 106 12/23/16 19:15 95 Nasal Cannula 2.00 12/23/16 19:15 98.5 100 19 138/74 (95) 95 12/23/16 19:15 117 12/23/16 18:03 119 12/23/16 17:00 113 12/23/16 16:00 87 12/23/16 15:54 95 Nasal Cannula 2.00 12/23/16 15:54 98.2 95 20 109/76 (87) 95 12/23/16 15:54 100 12/23/16 14:17 101 12/23/16 13:00 100 12/23/16 12:52 3.00 12/23/16 12:00 110 9/6/17 11:00 89 12/23/16 11:00 98.1 103 18 150/86 (107) 95 12/23/16 11:00 Room Air 2.00 12/23/16 11:00 101 12/23/16 10:00 94 12/23/16 09:00 90 I/O 12/23/16 12/23/16 12/23/16 12/24/16 12/24/16 12/24/16 07:00 15:00 23:00 07:00 15:00 23:00 Intake Total 240 ml 350 ml 590 ml 480 ml Output Total 690 ml 1255 ml 350 ml Balance -450 ml 350 ml -665 ml 130 ml Intake Oral 240 ml 240 ml 480 ml IV Total 350 ml 350 ml Output Urine Total 690 ml 1250 ml 350 ml Stool Total 5 ml (Gerald Watson MD R1) Result Diagram: 12/24/16 0530 12/24/16 0530 Objective Remarks GENERAL: Cachectic patient seen sitting up in bed speaking in full sentences. Alert and conversant. Appeared more comfortably from a respiratory standpoint today. SKIN: Cool and dry HEAD: Atraumatic. Normocephalic. EYES: EOMI ENT: No obvious bleeding or lacerations. NECK: Trachea midline. No JVD or lymphadenopathy. Supple, nontender, no meningeal signs. CARDIOVASCULAR: Regular rate and rhythm without murmurs, gallops, or rubs. distant heart sounds RESPIRATORY: Rare wheezing but much more air movement today. Otherwise CTAB. Much improved GASTROINTESTINAL: Abdomen soft, nondistended. No hepato-splenomegaly, or palpable masses. No guarding. MUSCULOSKELETAL: Extremities without clubbing, cyanosis, or edema. No joint tenderness, effusion, or edema noted. NEUROLOGICAL: Patient nonfocal and speaking normally today (Gerald Watson MD R1) A/P Assessment and Plan 61 yo WM being admitted for respiratory failure. Improving overall today but still SOB Discharge Planning Will need home O2, once patient is able to ambulate appropriately can likely be d/c (Gerald Watson MD R1) Attending Attestation Patient seen, examined, and discussed with resident team. I agree with assessment and management as documented and discussed with me. Pt tolerating nasal cannula at 2lpm. Sats lower to 89% when on room air. Encouraged patient to get out of bed as able. Continue current management - resp O2 walk test tomorrow. (Pao Dunn MD) Problem List: (1) Respiratory failure ICD Codes: J96.90 - Respiratory failure, unspecified, unspecified whether with hypoxia or hypercapnia Status: Acute Plan: Increased Oxygen requirement on admission - O2 saturation 95% on BiPAP CXR showed severe emphysema, no infiltrates Breathing continues to improve daily CPT helping Continues to sat well on 2L NC Continues to have no leukocytosis Azithromycin 500 mg q24hr, Cefepime 2000 mg BID - day 5 of antibiotics Duonebs qh4 PRN, Pulmicort neb q12hr PRN, Spiriva 18mcg qd, Symbicort BID Orders for nebulizer machine placed in discharge - discussed with case management Added Mucomyst nebs, patient believed this to help Switching from Solumedrol 40mg IV to prednisone taper (10mg TID starting 12/24) Will need home O2 - confirmed by walk test yesterday, will repeat it tomorrow Ordered PT see him daily - inability to ambulate and activity tolerance is biggest component keeping him here. (2) Emphysema ICD Codes: J43.9 - Emphysema, unspecified Status: Acute Plan: See breathing treatments above He was not getting any benefit from his advair as he was not using it properly. he does like his nebulizer so will try Pulmicort nebulized solution. his outpt Physician can keep him on his duonebs plus Pulmicort. May benefit from inhaled corticosteroid Can investigate if his Insurance may cover longer acting inhalers prior to discharge. (3) FEN Status: Acute Plan: heart healthy diet now. As he is cachectic overall, encouraged to take his supplements as he is not eating well Lovenox for DVT prophylaxis (Gerald Watson MD R1) Problem Qualifiers (1) Respiratory failure: Qualified Codes: J96.21 - Acute and chronic respiratory failure with hypoxia (2) Emphysema: Qualified Codes: J43.9 - Emphysema, unspecified Gerald Watson MD R1 Dec 24, 2016 08:41 Pao Dnun MD Dec 24, 2016 20:58
[2016-12-24] MEDS: AZITHROMYCIN INJ 500 MG in SODIUM CHLOR 0.9% 250 ML INJ 250 ML IV SCH (13:32)
--- NOTE | 2016-12-24 16:35 | HHI.PR ---
Subjective Remarks 61 YOWM with COPD exac, Nicotine use hypoxia Desaturates quickly No Fever Breathing little better Sat 96% on 2 LNC Up in chair Objective Vital Signs Vital Signs Date Time Temp Pulse Resp B/P (MAP) Pulse Ox O2 Delivery O2 Flow Rate FiO2 12/24/16 15:00 95 Nasal Cannula 2.00 12/24/16 14:00 98 12/24/16 13:23 97 12/24/16 13:10 92 Nasal Cannula 3.00 12/24/16 12:15 80 12/24/16 11:19 98.2 76 20 121/92 (102) 97 12/24/16 11:17 97 Nasal Cannula 2.00 12/24/16 11:00 74 12/24/16 10:21 80 12/24/16 08:00 85 12/24/16 07:00 87 12/24/16 07:00 98 Nasal Cannula 2.00 12/24/16 07:00 97.6 86 20 115/76 (89) 98 12/24/16 06:00 85 12/24/16 05:26 88 12/24/16 04:13 80 12/24/16 03:45 98.1 106 19 128/72 (90) 96 12/24/16 03:45 107 12/24/16 03:45 96 Nasal Cannula 2.00 12/24/16 02:13 108 12/24/16 01:30 106 12/24/16 00:00 92 12/23/16 23:45 98.1 94 18 114/69 (84) 95 12/23/16 23:45 107 12/23/16 23:45 95 Nasal Cannula 2.00 12/23/16 22:00 108 12/23/16 21:00 100 12/23/16 20:45 92 Nasal Cannula 2.00 12/23/16 20:00 106 12/23/16 19:15 95 Nasal Cannula 2.00 12/23/16 19:15 98.5 100 19 138/74 (95) 95 12/23/16 19:15 117 12/23/16 18:03 119 12/23/16 17:00 113 I/O 12/23/16 12/23/16 12/23/16 12/24/16 12/24/16 12/24/16 07:00 15:00 23:00 07:00 15:00 23:00 Intake Total 240 ml 350 ml 590 ml 480 ml Output Total 690 ml 1255 ml 350 ml Balance -450 ml 350 ml -665 ml 130 ml Intake Oral 240 ml 240 ml 480 ml IV Total 350 ml 350 ml Output Urine Total 690 ml 1250 ml 350 ml Stool Total 5 ml Result Diagram: 12/24/1652912/24/16529 Objective Remarks GENERAL:MBMN WM Mild SOB SKIN: Warm and dry. HEAD: Normocephalic. EYES: No scleral icterus. No injection or drainage. NECK: Supple, trachea midline. No JVD or lymphadenopathy. CARDIOVASCULAR: Regular rate and rhythm without murmurs, gallops, or rubs. RESPIRATORY: Breath sounds equal bilaterally. No accessory muscle use. GASTROINTESTINAL: Abdomen soft, non-tender, nondistended. MUSCULOSKELETAL: No cyanosis, or edema. BACK: Nontender without obvious deformity. No CVA tenderness. A/P Assessment and Plan COPD Exac Bronchitis Nicotine Use Hypoxia PLAN: Prednisone 10 mg tid Supplement 02 Aerosol nebs Spiriva daily Cont Abx Will need home 02. Rony Hermosillo MD Dec 24, 2016 16:35
[2016-12-24] MEDS: ENOXAPARIN SODIUM 40 MG/0.4 ML SYRINGE SQ SCH (16:49)
[2016-12-25] VITALS (24 sets, daily range): BP systolic 102–134; BP diastolic 56–85; PULSE 69–111; RESP 18–20; TEMP 97.8–99.3; O2SAT 92–98
[2016-12-25] MEDS: CHLORHEXIDINE GLUCONATE 2 % 1 PACK (2 CLOTHS) TOP SCH (04:00)
[2016-12-25] MEDS: CEFEPIME INJ 2,000 MG in SODIUM CHLORIDE 0.9% INJ 100 ML IV SCH (05:16)
[2016-12-25] MEDS: INSULIN NovoLIN REGULAR SUPPLEMENTAL SCALE SQ SCH ×4 (07:00→20:57)
[2016-12-25 07:36] LABS: AUTOMATED NEUTROPHIL # 5.6 TH/MM3 (1.8-7.7); BASOPHIL % 0.3 % (0.0-2.0); EOSINOPHIL % 0.3 % (0.0-4.0); HEMO FLAGS DIFF FINAL; LYMPH % 15.6 % (9.0-44.0); LYMPHOCYTE # 1.2 TH/MM3 (1.0-4.8); MEAN CELL VOLUME 87.7 FL (80.0-100.0); MEAN CORPUSCULAR HEMOGLOBIN 29.3 PG (27.0-34.0); MEAN CORPUSCULAR HGB CONC 33.4 % (32.0-36.0); MONO % 12.9 % (0.0-8.0); NEUT % 70.9 % (16.0-70.0); PLATELET COUNT 226 TH/MM3 (150-450); RED CELL DISTRIBUTION WIDTH 15.1 % (11.6-17.2); WHITE BLOOD COUNT 7.9 TH/MM3 (4.0-11.0)
[2016-12-25 07:48] LABS: BICARBONATE 33.8 MEQ/L (21.0-32.0)
[2016-12-25] MEDS: CHLORHEXIDINE 0.12% (ORAL KIT) 15 ML CUP MT SCH ×2 (08:00→20:00)
[2016-12-25] MEDS: MUPIROCIN 2% OINT 1 APPLIC/GM SYR NASAL SCH ×2 (08:09→20:57)
[2016-12-25] MEDS: predniSONE 10 MG TAB PO SCH ×3 (08:09→17:18)
[2016-12-25] MEDS: DOCUSATE SODIUM 50 MG/SENNA 8.6 MG TAB PO SCH ×2 (08:09→20:43)
[2016-12-25] MEDS: FAMOTIDINE 20 MG TAB PO SCH ×2 (08:09→20:43)
[2016-12-25] MEDS: SODIUM CHLORIDE 0.9% FLUSH 10 ML FLUSH IV FLUSH SCH ×2 (08:09→20:54)
[2016-12-25] MEDS: BUDESONIDE-FORMOTEROL 160/4.5 MCG INHALER INH SCH (08:10)
[2016-12-25] MEDS: ARTIFICIAL TEARS OPTH SOLN 15 ML BTL EACH EYE SCH ×3 (08:11→17:18)
[2016-12-25] MEDS: TIOTROPIUM BROMIDE 18 MCG INH INH SCH (08:11)
[2016-12-25] MEDS: RESP: ACETYLCYSTEINE 20% 30 ML NEB NEB SCH ×3 (08:22→19:32)
[2016-12-25] MEDS: RESP: ALBUTEROL 2.5 MG/3 ML NEB (PRN) INH ×3 (08:22→19:32)
[2016-12-25] MEDS: RESP: BUDESONIDE 0.5 MG/2 ML NEB NEB SCH ×2 (08:23→19:32)
--- NOTE | 2016-12-25 10:26 | HHI.PR ---
Subjective Remarks 61 YOWM with COPD exac, Nicotine use hypoxia Desaturates quickly No Fever Breathing little better Sat 96% on 2 LNC Up in chair Feels hungry Objective Vital Signs Vital Signs Date Time Temp Pulse Resp B/P (MAP) Pulse Ox O2 Delivery O2 Flow Rate FiO2 12/25/16 10:06 84 12/25/16 09:07 75 12/25/16 08:22 92 Nasal Cannula 3.00 12/25/16 08:00 70 12/25/16 07:00 98 Nasal Cannula 2.00 12/25/16 07:00 73 12/25/16 07:00 98.5 73 18 118/73 (88) 98 12/25/16 06:08 70 12/25/16 05:00 75 12/25/16 04:00 98.1 70 18 103/66 (78) 98 12/25/16 04:00 70 12/25/16 03:13 96 Nasal Cannula 2.00 12/25/16 03:00 75 12/25/16 02:00 75 12/25/16 01:00 82 12/25/16 00:00 81 12/25/16 00:00 98.2 87 18 102/67 (79) 94 12/24/16 23:03 81 12/24/16 23:02 94 Nasal Cannula 2.00 12/24/16 22:00 80 12/24/16 21:00 88 12/24/16 20:13 94 Nasal Cannula 3.00 12/24/16 20:00 97.9 87 20 106/70 (82) 94 12/24/16 20:00 94 Nasal Cannula 2.00 12/24/16 20:00 93 12/24/16 19:00 87 12/24/16 18:12 105 12/24/16 17:58 100 12/24/16 16:00 114 12/24/16 15:00 95 Nasal Cannula 2.00 12/24/16 15:00 98.0 111 18 123/76 (92) 93 12/24/16 15:00 108 12/24/16 14:00 98 12/24/16 13:23 97 12/24/16 13:10 92 Nasal Cannula 3.00 12/24/16 12:15 80 12/24/16 11:19 98.2 76 20 121/92 (102) 97 12/24/16 11:17 97 Nasal Cannula 2.00 12/24/16 11:00 74 I/O 12/24/16 12/24/16 12/24/16 12/25/16 12/25/16 12/25/16 07:00 15:00 23:00 07:00 15:00 23:00 Intake Total 480 ml 1050 ml 240 ml Output Total 350 ml 500 ml 275 ml Balance 130 ml 550 ml -35 ml Intake Oral 480 ml 800 ml 240 ml IV Total 250 ml Output Urine Total 350 ml 500 ml 275 ml # Bowel Movements 1 Result Diagram: 12/25/16 0710 12/25/16 0710 Objective Remarks GENERAL:MBMN WM Mild SOB SKIN: Warm and dry. HEAD: Normocephalic. EYES: No scleral icterus. No injection or drainage. NECK: Supple, trachea midline. No JVD or lymphadenopathy. CARDIOVASCULAR: Regular rate and rhythm without murmurs, gallops, or rubs. RESPIRATORY: Breath sounds equal bilaterally. No accessory muscle use. GASTROINTESTINAL: Abdomen soft, non-tender, nondistended. MUSCULOSKELETAL: No cyanosis, or edema. BACK: Nontender without obvious deformity. No CVA tenderness. A/P Assessment and Plan COPD Exac Bronchitis Nicotine Use Hypoxia PLAN: Prednisone 10 mg tid Supplement 02 Aerosol nebs Spiriva daily Cont Abx Will need home 02. Stable from pulm standpoint Coverage Available prn, Rony Hermosillo MD Dec 25, 2016 10:26
--- NOTE | 2016-12-25 10:36 | HHI.FPPN ---
Subjective Remarks Patient seen by residents on rounds today. No acute events overnight and vitals are stable this AM. Pt reports improved SOB, stating he was able to walk around his room and to the bathroom yesterday without assistance. He states he continues to be able to cough up some sputum and states his "chest congestion" is better. He also reports improved appetite and was looking forward to eating breakfast. Denied CP, NVD, constipation. (Gerald Watson MD R1) Objective Vitals Vital Signs Date Time Temp Pulse Resp B/P (MAP) Pulse Ox O2 Delivery O2 Flow Rate FiO2 12/25/16 10:06 84 12/25/16 09:07 75 12/25/16 08:22 92 Nasal Cannula 3.00 12/25/16 08:00 70 12/25/16 07:00 98 Nasal Cannula 2.00 12/25/16 07:00 73 12/25/16 07:00 98.5 73 18 118/73 (88) 98 12/25/16 06:08 70 12/25/16 05:00 75 12/25/16 04:00 98.1 70 18 103/66 (78) 98 12/25/16 04:00 70 12/25/16 03:13 96 Nasal Cannula 2.00 12/25/16 03:00 75 12/25/16 02:00 75 12/25/16 01:00 82 12/25/16 00:00 81 12/25/16 00:00 98.2 87 18 102/67 (79) 94 12/24/16 23:03 81 12/24/16 23:02 94 Nasal Cannula 2.00 12/24/16 22:00 80 12/24/16 21:00 88 12/24/16 20:13 94 Nasal Cannula 3.00 12/24/16 20:00 97.9 87 20 106/70 (82) 94 12/24/16 20:00 94 Nasal Cannula 2.00 12/24/16 20:00 93 12/24/16 19:00 87 12/24/16 18:12 105 12/24/16 17:58 100 12/24/16 16:00 114 12/24/16 15:00 95 Nasal Cannula 2.00 12/24/16 15:00 98.0 111 18 123/76 (92) 93 12/24/16 15:00 108 12/24/16 14:00 98 12/24/16 13:23 97 12/24/16 13:10 92 Nasal Cannula 3.00 12/24/16 12:15 80 12/24/16 11:19 98.2 76 20 121/92 (102) 97 12/24/16 11:17 97 Nasal Cannula 2.00 12/24/16 11:00 74 I/O 12/24/16 12/24/16 12/24/16 12/25/16 12/25/16 12/25/16 07:00 15:00 23:00 07:00 15:00 23:00 Intake Total 480 ml 1050 ml 240 ml Output Total 350 ml 500 ml 275 ml Balance 130 ml 550 ml -35 ml Intake Oral 480 ml 800 ml 240 ml IV Total 250 ml Output Urine Total 350 ml 500 ml 275 ml # Bowel Movements 1 (Gerald Watson MD R1) Result Diagram: 12/25/16 0710 12/25/16 0710 Objective Remarks GENERAL: Cachectic patient seen sitting up in bed speaking in full sentences. Alert and conversant. Better color and respiratory effort today SKIN: Cool and dry HEAD: Atraumatic. Normocephalic. EYES: EOMI ENT: No obvious bleeding or lacerations. NECK: Trachea midline. No JVD or lymphadenopathy. Supple, nontender, no meningeal signs. CARDIOVASCULAR: Regular rate and rhythm without murmurs, gallops, or rubs. distant heart sounds RESPIRATORY: CTAB. No appreciated wheezing or crackles. Much improved GASTROINTESTINAL: Abdomen soft, nondistended. No hepato-splenomegaly, or palpable masses. No guarding. MUSCULOSKELETAL: Extremities without clubbing, cyanosis, or edema. No joint tenderness, effusion, or edema noted. NEUROLOGICAL: Patient nonfocal and speaking normally today (Gerald Watson MD R1) A/P Assessment and Plan 61 yo WM being admitted for respiratory failure. Improving overall today but still SOB Discharge Planning Will need home O2, once patient is able to ambulate appropriately can likely be d/c (Gerald Watson MD R1) Attending Attestation Patient seen and examined, discussed with resident team. I agree with assessment and management as documented and discussed with me. Pt without new concerns. He continues to require oxygen and desaturates quickly. requiring 2lpm by nasal cannula. (Pao Dunn MD) Problem List: (1) Respiratory failure ICD Codes: J96.90 - Respiratory failure, unspecified, unspecified whether with hypoxia or hypercapnia Status: Acute Plan: Increased Oxygen requirement on admission - O2 saturation 95% on BiPAP CXR showed severe emphysema, no infiltrates Breathing continues to improve daily CPT helping Continues to sat well on 2L NC, occasionally requires 3 L with ambulation WBC 7.9 today Azithromycin 500 mg q24hr, Cefepime 2000 mg BID - with negative CXR and no leukocytosis, team feels comfortable stopping these after 5 days of treatment for COPD exacerbation. Spoke with Dr. Hermosillo and he agrees with this plan. Duonebs qh4 PRN, Pulmicort neb q12hr PRN, Spiriva 18mcg qd, Mucomyst nebs q6hr Discontinued Symbicort as patient reported difficulty using inhaler vs nebulized tx. On Pulmicort nebs so d/c Symbicort as not to duplicate therapy Orders for nebulizer machine placed in discharge - discussed with case management Prednisone taper (10mg TID starting 12/24) Will need home O2 - repeat walk test today Will transfer to med/surg floor - clinically improving Ordered PT see him daily - inability to ambulate and activity tolerance is biggest component keeping him here. (2) Emphysema ICD Codes: J43.9 - Emphysema, unspecified Status: Acute Plan: See breathing treatments above He was not getting any benefit from his advair as he was not using it properly. he does like his nebulizer so will try Pulmicort nebulized solution. his outpt Physician can keep him on his duonebs plus Pulmicort. May benefit from inhaled corticosteroid Can investigate if his Insurance may cover longer acting inhalers prior to discharge. (3) FEN Status: Acute Plan: heart healthy diet now. As he is cachectic overall, encouraged to take his supplements as he is not eating well Lovenox for DVT prophylaxis (Gerald Watson MD R1) Problem Qualifiers (1) Respiratory failure: Qualified Codes: J96.21 - Acute and chronic respiratory failure with hypoxia (2) Emphysema: Qualified Codes: J43.9 - Emphysema, unspecified Gerald Watson MD R1 Dec 25, 2016 10:36 Pao Dunn MD Dec 25, 2016 14:29
[2016-12-25] MEDS: ENOXAPARIN SODIUM 40 MG/0.4 ML SYRINGE SQ SCH (17:18)
[2016-12-26] VITALS (24 sets, daily range): BP systolic 104–131; BP diastolic 66–91; PULSE 74–118; RESP 20; TEMP 97.6–98.6; O2SAT 93–98
[2016-12-26] MEDS: CHLORHEXIDINE GLUCONATE 2 % 1 PACK (2 CLOTHS) TOP SCH (04:00)
[2016-12-26] MEDS: RESP: ACETYLCYSTEINE 20% 30 ML NEB NEB SCH ×5 (05:48→20:37)
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
[2016-12-26] MEDS: INSULIN NovoLIN REGULAR SUPPLEMENTAL SCALE SQ SCH ×4 (07:00→20:30)
[2016-12-26 08:00] LABS: HEMATOCRIT 43.2 % (39.0-51.0); MEAN CELL VOLUME 87.2 FL (80.0-100.0); MEAN CORPUSCULAR HEMOGLOBIN 29.5 PG (27.0-34.0); MEAN CORPUSCULAR HGB CONC 33.9 % (32.0-36.0); PLATELET COUNT 240 TH/MM3 (150-450); RED BLOOD COUNT 4.96 MIL/MM3 (4.50-5.90); RED CELL DISTRIBUTION WIDTH 15.1 % (11.6-17.2); REVIEW FLAG FINAL
[2016-12-26] MEDS: RESP: BUDESONIDE 0.5 MG/2 ML NEB NEB SCH ×3 (08:00→20:35)
[2016-12-26] MEDS: CHLORHEXIDINE 0.12% (ORAL KIT) 15 ML CUP MT SCH ×2 (08:00→20:00)
[2016-12-26 08:23] LABS: BICARBONATE 31.9 MEQ/L (21.0-32.0); POTASSIUM 3.9 MEQ/L (3.5-5.1)
[2016-12-26] MEDS: TIOTROPIUM BROMIDE 18 MCG INH INH SCH (09:00)
[2016-12-26] MEDS: ARTIFICIAL TEARS OPTH SOLN 15 ML BTL EACH EYE SCH ×3 (09:00→17:20)
[2016-12-26] MEDS: SODIUM CHLORIDE 0.9% FLUSH 10 ML FLUSH IV FLUSH SCH ×2 (09:00→20:30)
[2016-12-26] MEDS: MUPIROCIN 2% OINT 1 APPLIC/GM SYR NASAL SCH ×2 (09:12→20:30)
[2016-12-26] MEDS: DOCUSATE SODIUM 50 MG/SENNA 8.6 MG TAB PO SCH ×2 (09:12→20:30)
[2016-12-26] MEDS: FAMOTIDINE 20 MG TAB PO SCH ×2 (09:12→20:30)
[2016-12-26] MEDS: predniSONE 10 MG TAB PO SCH ×3 (09:12→17:20)
[2016-12-26] MEDS: RESP: ALBUTEROL 2.5 MG/3 ML NEB (PRN) INH ×3 (09:43→20:42)
[2016-12-26] MEDS: ENOXAPARIN SODIUM 40 MG/0.4 ML SYRINGE SQ SCH (17:20)
[2016-12-27] VITALS (26 sets, daily range): BP systolic 103–135; BP diastolic 60–74; PULSE 61–98; RESP 18–20; TEMP 97.8–98.6; O2SAT 94–97
[2016-12-27] MEDS: RESP: ALBUTEROL 2.5 MG/3 ML NEB (PRN) INH ×2 (03:06→11:00)
[2016-12-27] MEDS: RESP: ACETYLCYSTEINE 20% 30 ML NEB NEB SCH ×2 (03:06→10:00)
[2016-12-27] MEDS: CHLORHEXIDINE GLUCONATE 2 % 1 PACK (2 CLOTHS) TOP SCH (04:00)
[2016-12-27] MEDS: INSULIN NovoLIN REGULAR SUPPLEMENTAL SCALE SQ SCH ×4 (06:41→20:30)
[2016-12-27] MEDS: CHLORHEXIDINE 0.12% (ORAL KIT) 15 ML CUP MT SCH ×2 (08:00→20:00)
[2016-12-27] MEDS: DOCUSATE SODIUM 50 MG/SENNA 8.6 MG TAB PO SCH ×2 (08:25→20:30)
[2016-12-27] MEDS: predniSONE 10 MG TAB PO SCH ×3 (08:25→17:09)
[2016-12-27] MEDS: ARTIFICIAL TEARS OPTH SOLN 15 ML BTL EACH EYE SCH ×3 (08:25→17:09)
[2016-12-27] MEDS: MUPIROCIN 2% OINT 1 APPLIC/GM SYR NASAL SCH ×2 (08:25→20:29)
[2016-12-27] MEDS: TIOTROPIUM BROMIDE 18 MCG INH INH SCH (08:25)
[2016-12-27] MEDS: FAMOTIDINE 20 MG TAB PO SCH ×2 (08:25→20:30)
[2016-12-27] MEDS: SODIUM CHLORIDE 0.9% FLUSH 10 ML FLUSH IV FLUSH SCH ×2 (08:29→20:30)
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
[2016-12-27] MEDS: RESP: BUDESONIDE 0.5 MG/2 ML NEB NEB SCH ×2 (10:52→19:34)
[2016-12-27] MEDS: ENOXAPARIN SODIUM 40 MG/0.4 ML SYRINGE SQ SCH (17:09)
[2016-12-28] VITALS (17 sets, daily range): BP systolic 112–122; BP diastolic 63–78; PULSE 64–88; RESP 18–20; TEMP 97.1–98.4; O2SAT 66–94
[2016-12-28] MEDS: CHLORHEXIDINE GLUCONATE 2 % 1 PACK (2 CLOTHS) TOP SCH (02:16)
[2016-12-28] MEDS: INSULIN NovoLIN REGULAR SUPPLEMENTAL SCALE SQ SCH ×4 (06:52→21:50)
[2016-12-28] MEDS: FAMOTIDINE 20 MG TAB PO SCH ×2 (07:59→20:10)
[2016-12-28] MEDS: predniSONE 10 MG TAB PO SCH ×3 (07:59→16:43)
[2016-12-28] MEDS: SODIUM CHLORIDE 0.9% FLUSH 10 ML FLUSH IV FLUSH SCH ×2 (08:00→20:11)
[2016-12-28] MEDS: DOCUSATE SODIUM 50 MG/SENNA 8.6 MG TAB PO SCH ×2 (08:00→20:13)
[2016-12-28] MEDS: MUPIROCIN 2% OINT 1 APPLIC/GM SYR NASAL SCH ×2 (08:00→20:08)
[2016-12-28] MEDS: ARTIFICIAL TEARS OPTH SOLN 15 ML BTL EACH EYE SCH ×3 (08:00→16:43)
[2016-12-28] MEDS: TIOTROPIUM BROMIDE 18 MCG INH INH SCH (08:00)
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
[2016-12-28] MEDS: RESP: BUDESONIDE 0.5 MG/2 ML NEB NEB SCH (08:50)
[2016-12-28] MEDS: ENOXAPARIN SODIUM 40 MG/0.4 ML SYRINGE SQ SCH (16:43)
[2016-12-28] MEDS: CHLORHEXIDINE 0.12% (ORAL KIT) 15 ML CUP MT SCH (20:00)
[2016-12-29] VITALS (9 sets, daily range): BP systolic 103–135; BP diastolic 58–87; PULSE 63–112; RESP 16–17; TEMP 96.1–98.2; O2SAT 93–99
[2016-12-29] MEDS: CHLORHEXIDINE GLUCONATE 2 % 1 PACK (2 CLOTHS) TOP SCH (04:00)
[2016-12-29] MEDS: INSULIN NovoLIN REGULAR SUPPLEMENTAL SCALE SQ SCH ×4 (06:54→21:00)
[2016-12-29 07:47] LABS: HEMATOCRIT 40.3 % (39.0-51.0); MEAN CELL VOLUME 85.8 FL (80.0-100.0); MEAN CORPUSCULAR HEMOGLOBIN 29.5 PG (27.0-34.0); MEAN CORPUSCULAR HGB CONC 34.4 % (32.0-36.0); PLATELET COUNT 273 TH/MM3 (150-450); RED CELL DISTRIBUTION WIDTH 15.2 % (11.6-17.2); REVIEW FLAG FINAL; WHITE BLOOD COUNT 12.7 TH/MM3 (4.0-11.0)
[2016-12-29] MEDS: CHLORHEXIDINE 0.12% (ORAL KIT) 15 ML CUP MT SCH ×2 (08:00→20:00)
[2016-12-29] MEDS: RESP: BUDESONIDE 0.5 MG/2 ML NEB NEB SCH ×2 (08:05→21:47)
[2016-12-29 08:10] LABS: BICARBONATE 28.8 MEQ/L (21.0-32.0); POTASSIUM 3.4 MEQ/L (3.5-5.1)
[2016-12-29] MEDS: MUPIROCIN 2% OINT 1 APPLIC/GM SYR NASAL SCH ×2 (08:45→21:00)
[2016-12-29] MEDS: predniSONE 10 MG TAB PO SCH ×3 (08:55→18:52)
[2016-12-29] MEDS: SODIUM CHLORIDE 0.9% FLUSH 10 ML FLUSH IV FLUSH SCH ×2 (08:55→21:41)
[2016-12-29] MEDS: DOCUSATE SODIUM 50 MG/SENNA 8.6 MG TAB PO SCH ×2 (08:55→21:00)
[2016-12-29] MEDS: FAMOTIDINE 20 MG TAB PO SCH ×2 (08:55→21:41)
[2016-12-29] MEDS: ARTIFICIAL TEARS OPTH SOLN 15 ML BTL EACH EYE SCH ×3 (08:55→18:00)
[2016-12-29] MEDS: TIOTROPIUM BROMIDE 18 MCG INH INH SCH (09:00)
--- NOTE | 2016-12-29 11:55 | HHI.FPPN ---
Subjective Remarks Mr. Can seen today on rounds by medicine team. NAEO, Vital signs stable. Patient continues to require 2 - 3.00 L NC O2. States he is breathing much better and ambulated around the [place] yesterday. Feels that he is able to walk to bathroom unassisted. Denies CP, worsening SOB, NVD. Patient to have walk test later today. (Gerald Watson MD R1) Objective Vitals Vital Signs Date Time Temp Pulse Resp B/P (MAP) Pulse Ox O2 Delivery O2 Flow Rate FiO2 12/29/16 08:09 97 Nasal Cannula 3.00 12/29/16 08:00 96.1 63 16 103/66 (78) 99 12/29/16 04:55 96.7 71 17 120/67 (84) 93 12/29/16 04:34 74 12/29/16 03:21 Nasal Cannula 2.00 35 12/29/16 00:55 97.1 70 17 106/65 (79) 95 12/28/16 23:00 Nasal Cannula 2.00 35 12/28/16 20:10 Nasal Cannula 2.00 35 12/28/16 18:10 97.1 79 20 122/73 (89) 94 12/28/16 16:00 95 Nasal Cannula 2.00 12/28/16 16:00 97.9 88 18 113/78 (90) 88 12/28/16 12:00 78 12/28/16 12:00 95 Nasal Cannula 2.00 12/28/16 11:57 98.4 86 18 117/74 (88) 86 I/O 12/28/16 12/28/16 12/28/16 12/29/16 12/29/16 12/29/16 07:00 15:00 23:00 07:00 15:00 23:00 Intake Total 240 ml 840 ml 100 ml Output Total 550 ml 600 ml 925 ml Balance -310 ml 240 ml -825 ml Intake Oral 240 ml 840 ml 100 ml Output Urine Total 550 ml 600 ml 925 ml (Gerald Watson MD R1) Result Diagram: 12/29/1672412/29/16724 Objective Remarks GENERAL: Cachectic patient, lying in bed, speaking in full sentences. Alert, pleasant, and conversant. SKIN: Cool and dry HEAD: Atraumatic. Normocephalic. EYES: EOMI. No scleral icterus, no conjunctival injection. ENT: MMM. Nasal cannula in place. NECK: Trachea midline. No JVD or lymphadenopathy. Supple, nontender, no meningeal signs. CARDIOVASCULAR: Regular rate and rhythm without murmurs, gallops, or rubs. RESPIRATORY: Good air movement. No crackles or wheezes appreciated. No accessory muscle use. GASTROINTESTINAL: Abdomen soft, nondistended. MUSCULOSKELETAL: Extremities without clubbing, cyanosis, or edema. 2+ DP pulses. NEUROLOGICAL: Normal muscle tone. Grossly Nonfocal. (Gerald Watson MD R1) A/P Assessment and Plan 61 yo WM admitted for respiratory failure, found to have COPD exacerbation, now doing well and is stable but would require home oxygen going forward. Discharge Planning Will likely need home O2, but due to patient's lack of insurance this may be difficult to obtain. CM is on board and investigating - thankful for their help. Will be ready to d/c once we have plan of home oxygen (Gerald Watson MD R1) Attending Attestation Patient seen, examined, and discussed with resident team. I agree with assessment and management as documented and discussed with me. Pt reports he is feeling better. He continues to require O2 supplementation and likely needs this for the foreseeable future. Appreciate case management in helping to arrange O2 (Pao uDnn MD) Problem List: (1) Respiratory failure ICD Codes: J96.90 - Respiratory failure, unspecified, unspecified whether with hypoxia or hypercapnia Status: Resolved Plan: Secondary to COPD exacerbation Increased oxygen requirement on admission CXR around admission showed severe emphysema, no infiltrates Breathing continues to improve daily Continue CPT, which is helping Continues to sat well on 2-3L NC Continue nebulizer/breathing treatments: Duonebs Q4 hours Pulmicort Q12 hours Spiriva daily Continue steroids, prednisone 10mg TID. Completed 10 days of steroids thus far Anticipate patient will need home oxygen; respiratory oxygen walk test scheduled for today. Appreciated case management's assistance in arranging/investigating options for patient to have home oxygen. Antibiotic history: Azithromycin, 12/20/16 --> 12/25/16 Cefepime, 12/20/16 --> 12/25/16 (2) Emphysema ICD Codes: J43.9 - Emphysema, unspecified Status: Chronic Plan: COPD exacerbation See management above. (3) Inguinal hernia of left side without obstruction or gangrene ICD Codes: K40.90 - Unilateral inguinal hernia, without obstruction or gangrene , not specified as recurrent Plan: -Noticeable bulge in the left inguinal area with coughing and vasalva noted on 12/28 -Nontender, non-emergent, does not appear incarcerated, reduces in the supine position -Pt advised to follow up with PCP at [place] for possible surgical referral (4) FEN Status: Acute Plan: Heart healthy diet with supplements, given cachexia. Lovenox for DVT prophylaxis BMP on 12/29 showed hyponatremia (128), hypokalemia (3.4) - significant change from prior labs - could be lab error - will repeat BMP tomorrow and reassess (Gerald Watson MD R1) Problem Qualifiers (1) Respiratory failure: Qualified Codes: J96.21 - Acute and chronic respiratory failure with hypoxia (2) Emphysema: Qualified Codes: J43.9 - Emphysema, unspecified Gerald Watson MD R1 Dec 29, 2016 11:55 Pao Dunn MD Dec 29, 2016 14:19
--- NOTE | 2016-12-29 13:39 | HHI.PR ---
Subjective Remarks 61 YOWM with COPD exac, Nicotine use hypoxia No Fever Sat 96% on 2 LNC Up in chair Breathing better Objective Vital Signs Vital Signs Date Time Temp Pulse Resp B/P (MAP) Pulse Ox O2 Delivery O2 Flow Rate FiO2 12/29/16 08:09 97 Nasal Cannula 3.00 12/29/16 08:00 96.1 63 16 103/66 (78) 99 12/29/16 04:55 96.7 71 17 120/67 (84) 93 12/29/16 04:34 74 12/29/16 03:21 Nasal Cannula 2.00 35 12/29/16 00:55 97.1 70 17 106/65 (79) 95 12/28/16 23:00 Nasal Cannula 2.00 35 12/28/16 20:10 Nasal Cannula 2.00 35 12/28/16 18:10 97.1 79 20 122/73 (89) 94 12/28/16 16:00 95 Nasal Cannula 2.00 12/28/16 16:00 97.9 88 18 113/78 (90) 88 I/O 12/28/16 12/28/16 12/28/16 12/29/16 12/29/16 12/29/16 07:00 15:00 23:00 07:00 15:00 23:00 Intake Total 240 ml 840 ml 100 ml Output Total 550 ml 600 ml 925 ml Balance -310 ml 240 ml -825 ml Intake Oral 240 ml 840 ml 100 ml Output Urine Total 550 ml 600 ml 925 ml Result Diagram: 12/29/1672412/29/16 0725 Objective Remarks GENERAL:MBMN WM Mild SOB SKIN: Warm and dry. HEAD: Normocephalic. EYES: No scleral icterus. No injection or drainage. NECK: Supple, trachea midline. No JVD or lymphadenopathy. CARDIOVASCULAR: Regular rate and rhythm without murmurs, gallops, or rubs. RESPIRATORY: Breath sounds equal bilaterally. No accessory muscle use. GASTROINTESTINAL: Abdomen soft, non-tender, nondistended. MUSCULOSKELETAL: No cyanosis, or edema. BACK: Nontender without obvious deformity. No CVA tenderness. A/P Assessment and Plan COPD Exac Bronchitis Nicotine Use Hypoxia PLAN: Prednisone 10 mg tid Supplement 02 Aerosol nebs Spiriva daily Cont Abx 02 walk test Will need home 02. Check PFT Rony Hermosillo MD Dec 29, 2016 13:39
[2016-12-29] MEDS: ENOXAPARIN SODIUM 40 MG/0.4 ML SYRINGE SQ SCH (18:53)
[2016-12-30 00:45] VITALS: BP 110/58; PULSE 77; RESP 17; TEMP 98.7; O2SAT 96
[2016-12-30] MEDS: CHLORHEXIDINE GLUCONATE 2 % 1 PACK (2 CLOTHS) TOP SCH (03:13)
[2016-12-30 04:45] VITALS: BP 109/58; PULSE 63; RESP 17; TEMP 96.7; O2SAT 96
[2016-12-30] MEDS: INSULIN NovoLIN REGULAR SUPPLEMENTAL SCALE SQ SCH ×3 (05:10→12:00)
[2016-12-30 08:00] VITALS: BP 109/64; PULSE 67; RESP 18; TEMP 96.2; O2SAT 95
[2016-12-30] MEDS: RESP: BUDESONIDE 0.5 MG/2 ML NEB NEB SCH (08:00)
[2016-12-30] MEDS: ARTIFICIAL TEARS OPTH SOLN 15 ML BTL EACH EYE SCH ×2 (09:00→12:49)
[2016-12-30] MEDS: MUPIROCIN 2% OINT 1 APPLIC/GM SYR NASAL SCH (09:00)
[2016-12-30] MEDS: TIOTROPIUM BROMIDE 18 MCG INH INH SCH (10:05)
[2016-12-30] MEDS: DOCUSATE SODIUM 50 MG/SENNA 8.6 MG TAB PO SCH (10:07)
[2016-12-30] MEDS: predniSONE 10 MG TAB PO SCH (10:08)
[2016-12-30] MEDS: FAMOTIDINE 20 MG TAB PO SCH (10:08)
[2016-12-30] MEDS: SODIUM CHLORIDE 0.9% FLUSH 10 ML FLUSH IV FLUSH SCH (10:11)
--- NOTE | 2016-12-30 10:30 | HHI.FPPN ---
Subjective Remarks Patient was seen walking in the hallway with physical therapy without oxygen. he has been saturating around 93% without oxygen and was taken off by nursing staff this morning. (EkoTerra MD R2) Objective Vitals Vital Signs Date Time Temp Pulse Resp B/P (MAP) Pulse Ox O2 Delivery O2 Flow Rate FiO2 12/30/16 08:00 96.2 67 18 109/64 (79) 95 12/30/16 04:45 96.7 63 17 109/58 (75) 96 12/30/16 00:45 98.7 77 17 110/58 (75) 96 12/29/16 21:49 96 Nasal Cannula 3.00 12/29/16 20:25 98.2 95 17 106/58 (74) 95 12/29/16 16:00 97.2 112 17 114/72 (86) 96 12/29/16 12:00 96.2 71 16 135/87 (103) 93 I/O 12/29/16 12/29/16 12/29/16 12/30/16 12/30/16 12/30/16 07:00 15:00 23:00 07:00 15:00 23:00 Intake Total 100 ml 720 ml 350 ml Output Total 925 ml 675 ml Balance -825 ml 720 ml -325 ml Intake Oral 100 ml 720 ml 350 ml Output Urine Total 925 ml 675 ml # Voids 5 # Bowel Movements 1 2 (EkoTerra MD R2) Result Diagram: 12/29/16 0725 12/29/16 0725 Objective Remarks GENERAL: Cachectic patient, walking around, speaking in full sentences. Alert, pleasant, and conversant. SKIN: Cool and dry HEAD: Atraumatic. Normocephalic. EYES: EOMI. No scleral icterus, no conjunctival injection. ENT: MMM. NECK: Trachea midline. No JVD or lymphadenopathy. Supple, nontender, no meningeal signs. CARDIOVASCULAR: Regular rate and rhythm without murmurs, gallops, or rubs. RESPIRATORY: Good air movement. No crackles or wheezes appreciated. No accessory muscle use. GASTROINTESTINAL: Abdomen soft, nondistended. MUSCULOSKELETAL: Extremities without clubbing, cyanosis, or edema. 2+ DP pulses. NEUROLOGICAL: Normal muscle tone. Grossly Nonfocal. Wandering gait (EkoTerra MD R2) A/P Assessment and Plan 61 yo WM admitted for respiratory failure, found to have COPD exacerbation, now doing well and is stable, passed respiratory home oxygen walk test Discharge Planning Patient is stable for discharge, does not require home oxygen based on walk test result (Terra Medel MD R2) Attending Attestation Patient seen and examined, discussed with Dr. Medel. I agree with assessment and management as documented and discussed with me. Pt maintaining O2 sats and passed respiratory walk test. Discharge home today. (Pao Dunn MD) Problem List: (1) Respiratory failure ICD Codes: J96.90 - Respiratory failure, unspecified, unspecified whether with hypoxia or hypercapnia Status: Resolved Plan: Secondary to COPD exacerbation Increased oxygen requirement on admission CXR around admission showed severe emphysema, no infiltrates Breathing continues to improve daily Continue CPT, which is helping Maintaining O2 saturation around 93% on room air Continue nebulizer/breathing treatments: Duonebs Q4 hours Pulmicort Q12 hours Spiriva daily Continue steroids, prednisone 10mg TID Completed 11 days of steroids thus far Discharge plan: -We'll discharge home on Duonebs, albuterol neb, Pulmicort and a prednisone taper as follows: 10 mg twice a day for 5 days and 5 mg twice a day for 5 days Patient passed respiratory oxygen walk test, does not require oxygen at home Antibiotic history: Azithromycin, 12/20/16 --> 12/25/16 Cefepime, 12/20/16 --> 12/25/16 (2) Emphysema ICD Codes: J43.9 - Emphysema, unspecified Status: Chronic Plan: COPD exacerbation See management above. (3) Inguinal hernia of left side without obstruction or gangrene ICD Codes: K40.90 - Unilateral inguinal hernia, without obstruction or gangrene , not specified as recurrent Plan: -Noticeable bulge in the left inguinal area with coughing and vasalva noted on 12/28 -Nontender, non-emergent, does not appear incarcerated, reduces in the supine position -Pt advised to follow up with PCP at [place] for possible surgical referral (4) FEN Status: Acute Plan: Heart healthy diet with supplements, given cachexia. Lovenox for DVT prophylaxis BMP on 12/29 showed hyponatremia (128), hypokalemia (3.4) - significant change from prior labs - could be lab error -BMP on 12/30/16 shows improved hyponatremia to 133 and potassium of 4.1 which is within normal limits (EkTerra bethea MD R2) Problem Qualifiers (1) Respiratory failure: Qualified Codes: J96.21 - Acute and chronic respiratory failure with hypoxia EkTerra bethea MD R2 Dec 30, 2016 10:30 Pao Dunn MD Dec 30, 2016 21:12
--- NOTE | 2016-12-30 10:45 | RSPPFT ---
DATE OF PROCEDURE: 12/30/16 COMMENTS: Spirometry shows FVC of 2.5 at 57% of predicted, FEV1 of 0.7 at 21%, FEV1/FVC ratio is decreased. Flow is decreased at FEF 25, FEF 50, FEF 75 and FEF 25-75. There is no response after acutely inhaled bronchodilator. Flow volume loop indicates an obstructive pattern. IMPRESSION: 1. Very severe obstructive lung disease. 2. No response after bronchodilator treatment.
--- NOTE | 2016-12-30 11:56 | HHI.DS ---
Discharge Summary Admission Date Dec 20, 2016 at 14:44 Discharge Date: Dec 30, 2016 Admitting Diagnosis (1) Respiratory failure Diagnosis: Principal ICD Codes: J96.90 - Respiratory failure, unspecified, unspecified whether with hypoxia or hypercapnia Status: Resolved (2) Emphysema Diagnosis: Principal ICD Codes: J43.9 - Emphysema, unspecified Status: Chronic (3) Inguinal hernia of left side without obstruction or gangrene Diagnosis: Secondary ICD Codes: K40.90 - Unilateral inguinal hernia, without obstruction or gangrene , not specified as recurrent Brief History Mr Can is a 61 yo male with PMH of severe COPD presenting with respiratory failure, tachypnea, wheezing, and O2 sats at 90%. Patient was unresponsive during interview in ED so PMH and HPI gathered from chart review and verified today. Patient was brought to ED by ambulance. Patient states he was up all night sitting using his albuterol inhaler frequently, and his Advair 1. He states his advair "never worked for him" and he only breathes in very shallowly when demonstrating today. Patient denied recent fever or sweats. He denied chest pain. He had no nausea, vomiting, or respiratory symptoms. EMS called en route and the patient was given 2 mg magnesium IV as well as 4 mg Zofran IV as he was fighting using a rebreather mask for his duo nebs. Patient refused intubation en route. EKG and the rate was normal sinus rhythm Patient started on BiPAP and received 2mg Ativan due to anxiety. He stated today when he was more conversant that he was doing well at home until late Wednesday night when he started to have problems. He has a history of COPD and reports having PFTs in the past though those records are not available at this time. Today he feels much better with his breathing overall but is still weak and having some trouble ambulating to the bathroom. CBC/BMP: 12/29/16 0725 12/29/16 0725 Significant Findings Laboratory Tests Test 12/29/16 07:25 White Blood Count 12.7 TH/MM3 (4.0-11.0) Blood Urea Nitrogen 32 MG/DL (7-18) Sodium Level 128 MEQ/L (136-145) Potassium Level 3.4 MEQ/L (3.5-5.1) Chloride Level 93 MEQ/L (98-107) PE at Discharge GENERAL: Cachectic patient, walking around, speaking in full sentences. Alert, pleasant, and conversant. SKIN: Cool and dry HEAD: Atraumatic. Normocephalic. EYES: EOMI. No scleral icterus, no conjunctival injection. ENT: MMM. NECK: Trachea midline. No JVD or lymphadenopathy. Supple, nontender, no meningeal signs. CARDIOVASCULAR: Regular rate and rhythm without murmurs, gallops, or rubs. RESPIRATORY: Good air movement. No crackles or wheezes appreciated. No accessory muscle use. GASTROINTESTINAL: Abdomen soft, nondistended. MUSCULOSKELETAL: Extremities without clubbing, cyanosis, or edema. 2+ DP pulses. NEUROLOGICAL: Normal muscle tone. Grossly Nonfocal. Wandering gait Hospital Course Mr. Brar is a 61 yo WM who was admitted for respiratory failure, found to have COPD exacerbation, and was treated accordingly with albuterol and DuoNeb nebulizers, Pulmicort, Spiriva, and prednisone. He also received 5 days of IV antibiotic treatment with cefepime and azithromycin. Pulmonology was consulted during this admission and assisted with management. Patient continued to improve during the hospital stay and eventually was completely weaned off oxygen. Bedside PFTs were performed that illustrated an obstructive pattern. He passed a respiratory home oxygen walk test and would not require oxygen at home. Additionally, patient was found to have a noticeable bulge in his left inguinal area that worsened with coughing and Valsalva that is consistent with a left inguinal hernia without incarceration. He was discharged in stable condition with optimize medications and a prednisone taper to follow up with pulmonology and his PCP in 2 weeks. Patient will require a general surgery referral from his PCP for follow-up of the left inguinal hernia. Pt Condition on Discharge: Stable Discharge Instructions DIET: Follow Instructions for: As Tolerated, No Restrictions Activities you can perform: Regular-No Restrictions Follow up Referrals: PCP Follow-up - 1 Week Pulmonology - 2 Weeks with Rony Hermosillo MD New Medications: Budesonide-Formoterol Inh (Symbicort Inh) 160-4.5 Mcg/Act Aero 2 PUFF INH Q12HR, #1 INHALER 0 Refills Ipratropium-Albuterol Inh (Combivent Respimat Inh) 20-100 Nursing Home/Act Aero 1 PUFF INH QID for Asthma Management, #1 INHALER 0 Refills Ipratropium-Albuterol Neb (Duoneb) 0.5-2.5 Mg/3 Ml Neb 1 NEBULE INH Q12HR NEB for Breathing Treatment, #120 NEBULE 0 Refills Nebulizer (Nebulizer) 1 Mis Mis EA .ROUTE DIRECTED for Breathing Treatment, #1 0 Refills Prednisone (Prednisone) 5 Mg Tab 5 MG PO BID for 5 Days, #30 TAB 0 Refills Take 2 tablets two times daily for 5 days, then take 1 tablet two times daily for 5 days Changed Medications: Albuterol Neb (Albuterol Neb) 2.5 Mg/3 Ml Neb 2.5 MG NEB Q4-6H PRN for SHORTNESS OF BREATH, #90 NEBULE 4 Refills (Changed from : TID NEB) Discontinued Medications: Fluticasone-Salmeterol Inh (Advair Diskus Inh) 250-50 Mcg/Blist Aer 1 PUFF INH BID, #1 INHALER 2 Refills Rinse mouth after use. Terra Medel MD R2 Dec 30, 2016 11:56
[2016-12-30 12:00] VITALS: BP 100/55; PULSE 76; RESP 18; TEMP 97.9; O2SAT 94
[2016-12-30] MEDS ORDERED: PRED5TAB PO ×2 (12:06→12:23)
[2016-12-30] MEDS ORDERED: PRED10 PO (12:06)
[2016-12-30] MEDS ORDERED: IPRASOL INH (12:06)
[2016-12-30] MEDS ORDERED: SYMB160A INH (12:23)
[2016-12-30] MEDS ORDERED: IPRAAER INH (12:23)
[2016-12-30] MEDS ORDERED: ALBU0.08 NEB (12:23)
--- NOTE | 2016-12-30 12:25 | HHI.DCPOC ---
Discharge Care Plan Diagnosis: (1) Respiratory failure (2) Emphysema, unspecified (3) Inguinal hernia of left side without obstruction or gangrene Goals to Promote Your Health * To prevent worsening of your condition and complications * To maintain your health at the optimal level Directions to Meet Your Goals Take your medications as prescribed Follow your dietary instruction Follow activity as directed Keep your appointments as scheduled Take your immunizations and boosters as scheduled If your symptoms worsen call your PCP, if no PCP go to Urgent Care Center or Emergency Room Smoking is Dangerous to Your Health. Avoid second hand smoke Call the 24-hour hour crisis hotline for domestic abuse at Terra Medel MD R2 Dec 30, 2016 12:25
[2016-12-30 15:09] LABS: BICARBONATE 31.4 MEQ/L (21.0-32.0); MAGNESIUM 2.2 MG/DL (1.5-2.5); POTASSIUM 4.1 MEQ/L (3.5-5.1)
== END 2016-12-30 15:05 | disposition home or self-care (01) | DRG 189 ==
LOC: NEPC 12:19 → NEDA 14:44 → HCVR 16:50 → HCIS 12-22 14:56 → HOCB 12-28 18:02
PROVIDERS: ADMIT Family Medicine; ATTEND Family Medicine
PROC: 5A09357 Assistance with Respiratory Ventilation, Less than 24 Consecutive Hours, Continuous Positive Airway Pressure (ICD-10-PCS; principal; 2016-12-20)
DX: J96.21 Acute and chronic respiratory failure with hypoxia (principal); J44.1 Chronic obstructive pulmonary disease with (acute) exacerbation; R64 Cachexia; F41.9 Anxiety disorder, unspecified; F17.210 Nicotine dependence, cigarettes, uncomplicated; R41.82 Altered mental status, unspecified; F12.90 Cannabis use, unspecified, uncomplicated; K40.90 Unilateral inguinal hernia, without obstruction or gangrene, not specified as recurrent; Z82.3 Family history of stroke; Z82.49 Family history of ischemic heart disease and other diseases of the circulatory system; Z83.6 Family history of other diseases of the respiratory system
CPT/HCPCS: 36600; 71010; 80048; 80053; 81001; 82550; 82552; 82805; 82948; 83605; 83735; 83880; 84100; 84484; 85007; 85025; 85027; 85610; 85730; 86403; 87040; 87070; 87116; 87205; 87641; 93005; 94002; 94060; 94620; 94640; 94664; 94667; 94668; 96374; 96375; J0456; J0692; J1650; J2060; J2920; J2930; J7030; J7050; J7512; J7608; J7613; J7626

== ENCOUNTER 2017-03-29 20:37 | Emergency (ER) | payer MEDICAID ==
[~2017-03-29 20:37] MED LIST changes: -ADVA250A INH; +IPRAAER INH; +IPRASOL INH; +NEBULIZER1 MI1; -NEBUMIS6 INH; +PRED5TAB PO; +SYMB160A INH
[2017-03-29 20:38] VITALS: BP 130/81; PULSE 121; RESP 16; TEMP 97.9; O2SAT 95
--- NOTE | 2017-03-29 21:28 | RADRPT ---
EXAM DATE/TIME: 03/29/2017 20:59 [facility] COMPARISON: No previous studies available for comparison. INDICATIONS : Short of breath. MEDICAL HISTORY : Chronic obstructive pulmonary disease. Congestive heart failure. SURGICAL HISTORY : None. ENCOUNTER: Initial ACUITY: 2 months PAIN SCORE: 0/10 LOCATION: Bilateral chest FINDINGS: There is underlying emphysema, especially in upper lungs. Mild basilar atelectasis. No effusion. No p neumothorax. Heart size within normal limits. CONCLUSION: 1. Hyperinflation with emphysema. No focal consolidation. Minimal linear scarring or atelectasis at t he bases. Chuck Hoyos MD on March 29, 2017 at 21:25 Board Certified Radiologist. This report was verified electronically.
[2017-03-29] MEDS ORDERED: VENTAER INH (22:37)
[2017-03-29] MEDS ORDERED: DOXY100C PO (22:37)
[2017-03-29] MEDS ORDERED: MEDR4PAK PO (22:37)
--- NOTE | 2017-03-29 22:38 | PD ---
HPI Chief Complaint: Respiratory Symptoms Time Seen by Provider: 22:31 Travel History International Travel<30 days: No Contact w/Intl Traveler<30days: No Traveled to known affect area: No History of Present Illness HPI c/o sob and wheezing over past day or so, pt is actively smoking and is out of his inhaler at home. patient denies any assoc symptoms such as fever/phlegm/n/v /d/cp/zamudio/abd pain/back pain/ all:denies pmhx: copd, active smoker, not oxygen dependant, PFSH Past Medical History Asthma: No Blood Disorders: No Anxiety: No Depression: No Heart Rhythm Problems: No Cancer: No Cardiovascular Problems: No Chemotherapy: No Chest Pain: No Congestive Heart Failure: No COPD: Yes Diabetes: No Endocrine: No Gastrointestinal Disorders: Yes (DIARRHEA X 7 DAYS LAST WEEK) Genitourinary: No Immune Disorder: No Musculoskeletal: No Neurologic: No Psychiatric: No Reproductive: No Respiratory: Yes Radiation Therapy: No Sleep Apnea: No Thyroid Disease: No Past Surgical History Genitourinary Surgery: Yes (Hernia) Other Surgery: Yes (HERNIA REPAIR) Social History Alcohol Use: Yes (OCCASIONAL BEER) Tobacco Use: Yes (1 pack per 3 days) Substance Use: Yes (Marihuana) Allergies-Medications (Allergen,Severity, Reaction): Coded Allergies: No Known Allergies (Verified , 12/20/16) Reported Meds & Prescriptions Reported Meds & Active Scripts Active Doxycycline Hyclate 100 Mg Cap 100 Mg PO BID 5 Days Ventolin Hfa 18 GM Inh (Albuterol Sulfate) 90 Mcg/Act Aer 2 Puff INH Q4-6H PRN Medrol Dosepak (Methylprednisolone) 4 Mg Dspk 4 Mg PO DIRECTED Per Pharmacist direction Combivent Respimat Inh (Ipratropium-Albuterol Inh) 20-100 Snf/Act Aero 1 Puff INH QID Symbicort Inh (Budesonide/Formoterol Fumarate) 160-4.5 Mcg/Act Aero 2 Puff INH Q12HR Prednisone 5 Mg Tab 5 Mg PO BID 5 Days Take 2 tablets two times daily for 5 days, then take 1 tablet two times daily for 5 days Albuterol Neb (Albuterol Sulfate) 2.5 Mg/3 Ml Neb 2.5 Mg NEB Q4-6H PRN Duoneb (Ipratropium-Albuterol Neb) 0.5-2.5 Mg/3 Ml Neb 1 Nebule INH Q12HR NEB Nebulizer 1 Mis Mis Ea .ROUTE DIRECTED Review of Systems Except as stated in HPI: all other systems reviewed are Neg General / Constitutional: No: Fever Eyes: No: Visual changes HENT: No: Headaches Cardiovascular: No: Chest Pain or Discomfort Respiratory: Positive: Shortness of Breath, Wheezing Gastrointestinal: No: Abdominal Pain Genitourinary: No: Dysuria Musculoskeletal: No: Pain Skin: No Rash Neurologic: No: Weakness Psychiatric: No: Depression Endocrine: No: Polydipsia Hematologic/Lymphatic: No: Easy Bruising Physical Exam Narrative GENERAL: SKIN: Warm and dry. HEAD: Atraumatic. Normocephalic. EYES: Pupils equal and round. No scleral icterus. No injection or drainage. ENT: No nasal bleeding or discharge. Mucous membranes pink and moist. NECK: Trachea midline. No JVD. CARDIOVASCULAR: Regular rate and rhythm. RESPIRATORY: No accessory muscle use. wheezing bilaterally, fairly good tidal volume, no crackles GASTROINTESTINAL: Abdomen soft, non-tender, nondistended. Hepatic and splenic margins not palpable. MUSCULOSKELETAL: Extremities without clubbing, cyanosis, or edema. No obvious deformities. NEUROLOGICAL: Awake and alert. No obvious cranial nerve deficits. Motor grossly within normal limits. Five out of 5 muscle strength in the arms and legs. Normal speech. PSYCHIATRIC: Appropriate mood and affect; insight and judgment normal. Data Data Last Documented VS Vital Signs Date Time Temp Pulse Resp B/P (MAP) Pulse Ox O2 Delivery O2 Flow Rate FiO2 03/30/17 00:11 98 16 109/78 (88) 98 03/29/17 22:51 Room Air 03/29/17 20:38 97.9 Orders Orders Chest, Pa & Lat (03/29/17 ) Albuterol Neb (Albuterol Neb) (03/29/17 22:45) Dexamethasone Inj (Decadron Inj) (03/29/17 22:45) Azithromycin (Zithromax) (03/29/17 22:45) Ed Discharge Order (03/30/17 00:07) MDM Medical Decision Making Medical Screen Exam Complete: Yes Emergency Medical Condition: Yes Medical Record Reviewed: Yes Differential Diagnosis bronchitis v pna v copd flare Narrative Course xray does not show any consolidation and findings c/w copd Diagnosis Primary Impression: mild copd exacerbation Patient Instructions: COPD (Chronic Obstructive Pulmonary Disease) (ED), General Instructions Scripts Doxycycline Hyclate (Doxycycline Hyclate) 100 Mg Cap 100 MG PO BID for Infection for 5 Days, #10 CAP 0 Refills Prov: Andres Berkowitz MD 03/29/17 Albuterol 18 GM Inh (Ventolin Hfa 18 GM Inh) 90 Mcg/Act Aer 2 PUFF INH Q4-6H Y for SHORTNESS OF BREATH, #1 INHALER 0 Refills Prov: Andres Berkowitz MD 03/29/17 Methylprednisolone Dosepak (Medrol Dosepak) 4 Mg Dspk 4 MG PO DIRECTED, #1 DSPK 0 Refills Per Pharmacist direction Prov: Andres Berkowitz MD 03/29/17 Disposition: 01 DISCHARGE HOME Condition: Stable Andres Berkowitz MD Mar 29, 2017 22:38
[2017-03-29] MEDS ORDERED: DEXAMETHASONE SOD PHOS 4 MG/ML VIAL IM ONE (22:45)
[2017-03-29] MEDS ORDERED: AZITHROMYCIN 250 MG TAB PO ONE (22:45)
[2017-03-29] MEDS: RESP: ALBUTEROL 2.5 MG/3 ML NEB (SCH) INH ×2 (23:17→23:18)
[2017-03-30 00:11] VITALS: BP 109/78
== END 2017-03-30 00:11 | disposition home or self-care (01) ==
LOC: NEPD 20:37
DX: J44.1 Chronic obstructive pulmonary disease with (acute) exacerbation (principal); F17.210 Nicotine dependence, cigarettes, uncomplicated
CPT/HCPCS: 71020; 94640; 94664; 96372; 99284; J1100; J7613

== ENCOUNTER 2017-07-13 01:52 | Inpatient (IN) | payer MEDICAID ==
[~2017-07-13] VITALS: Ht 177.8 cm; Wt 55.9 kg
[2017-07-13] VITALS (20 sets, daily range): BP systolic 114–157; BP diastolic 53–87; PULSE 71–114; RESP 17–36; TEMP 97.9–98.4; O2SAT 88–98
[~2017-07-13 01:52] MED LIST changes: +DOXY100C PO; +MEDR4PAK PO; +VENTAER INH
[2017-07-13] MEDS ORDERED: methylPREDNISolone SOD SUCC 125 MG/2 ML VIAL IV PUSH ONE (02:15)
[2017-07-13] MEDS ORDERED: SODIUM CHLORIDE 0.9% FLUSH 10 ML FLUSH IVF PRN (02:15)
[2017-07-13] MEDS: RESP: ALBUTEROL 2.5 MG/IPRATROPIUM 0.5 MG NEB (SCH) INH ×5 (02:16→20:39)
--- NOTE | 2017-07-13 02:19 | PD ---
HPI Chief Complaint: Respiratory Distress Time Seen by Provider: 02:05 Travel History International Travel<30 days: No Contact w/Intl Traveler<30days: No Traveled to known affect area: No History of Present Illness HPI The patient is a 62-year-old male who presents to the emergency department for shortness of breath of 3 days duration. The patient has a history of COPD, is currently homeless and does not have his nebulizer anymore. The patient has been using his pro-air inhaler over the last several days without any alleviation of his symptoms. He does complain of chest tightness, shortness of breath, wheezing, and a dry mostly nonproductive cough. The patient does have a history of COPD, denies any history CHF, CAD, pulmonary embolism, or DVT. He does not currently have a primary physician. Symptoms are moderate, worse with activity and exertion. He denies any fever, chills, or sweats. The patient continues to smoke intermittently, last cigarette was yesterday. PFSH Past Medical History Asthma: No Blood Disorders: No Anxiety: No Depression: No Heart Rhythm Problems: No Cancer: No Cardiovascular Problems: No Chemotherapy: No Chest Pain: No Congestive Heart Failure: No COPD: Yes Diabetes: No Diminished Hearing: No Endocrine: No Gastrointestinal Disorders: Yes (DIARRHEA X 7 DAYS LAST WEEK) Genitourinary: No Immune Disorder: No Musculoskeletal: No Neurologic: No Psychiatric: No Reproductive: No Respiratory: Yes Radiation Therapy: No Sleep Apnea: No Thyroid Disease: No Past Surgical History Genitourinary Surgery: Yes (Hernia) Other Surgery: Yes (HERNIA REPAIR) Social History Alcohol Use: Yes (OCCASIONAL BEER) Tobacco Use: Yes (1 pack per 3 days) Substance Use: Yes (Marihuana) Allergies-Medications (Allergen,Severity, Reaction): Coded Allergies: No Known Allergies (Verified Allergy, Unknown, 07/13/17) Reported Meds & Prescriptions Reported Meds & Active Scripts Active Ventolin Hfa 18 GM Inh (Albuterol Sulfate) 90 Mcg/Act Aer 2 Puff INH Q4-6H PRN Combivent Respimat Inh (Ipratropium-Albuterol Inh) 20-100 Chcf/Act Aero 1 Puff INH QID Review of Systems Except as stated in HPI: all other systems reviewed are Neg General / Constitutional: No: Fever Cardiovascular: Positive: Chest Pain or Discomfort (Tightness with wheezing), Dyspnea on exertion Respiratory: Positive: Cough, Shortness of Breath, Wheezing Gastrointestinal: No: Nausea, Vomiting, Abdominal Pain Musculoskeletal: No: Edema Neurologic: No: Dizziness Physical Exam Narrative GENERAL: Awake, alert, 8-year-old male who appears his stated age and is in moderate respiratory distress. Cachectic build. SKIN: Focused skin assessment warm/dry. HEAD: Atraumatic. Normocephalic. EYES: No injection or drainage. ENT: No nasal bleeding or discharge. Mucous membranes pink and moist. NECK: Trachea midline. No JVD. CARDIOVASCULAR: Regular rate and rhythm. No murmur appreciated. Heart rate in the 90s. RESPIRATORY: Intercostal retractions and supraclavicular retractions. Tight breath sounds with prolonged expiratory phase and late wheeze. GASTROINTESTINAL: Abdomen soft, non-tender, nondistended. No rebound tenderness.. MUSCULOSKELETAL: No obvious deformities. No clubbing. No cyanosis. No edema. NEUROLOGICAL: Awake and alert. No obvious cranial nerve deficits. Motor grossly within normal limits. Normal speech. PSYCHIATRIC: Appropriate mood and affect; insight and judgment normal. Data Data Last Documented VS Vital Signs Date Time Temp Pulse Resp B/P (MAP) Pulse Ox O2 Delivery O2 Flow Rate FiO2 07/13/17 03:50 103 36 139/75 (96) 96 BiPAP 21 07/13/17 02:48 2.00 07/13/17 01:55 98.2 Orders Orders Complete Blood Count With Diff (07/13/17 02:09) Comprehensive Metabolic Panel (07/13/17 02:09) B-Type Natriuretic Peptide (07/13/17 02:09) Magnesium (Mg) (07/13/17 02:09) Ckmb (Isoenzyme) Profile (07/13/17 02:09) Troponin I (07/13/17 02:09) Influenzae A/B Antigen (07/13/17 02:09) Iv Access Insert/Monitor (07/13/17 02:09) Electrocardiogram (07/13/17 02:09) Ecg Monitoring (07/13/17 02:09) Oximetry (07/13/17 02:09) Oxygen Administration (07/13/17 02:09) Chest, Single Ap (07/13/17 02:09) Sodium Chloride 0.9% Flush (Ns Flush) (07/13/17 02:15) Methylprednisolone So Succ Inj (Solumedr (07/13/17 02:15) Albuterol-Ipratropium Neb (Duoneb Neb) (07/13/17 02:15) CKMB (07/13/17 02:10) CKMB% (07/13/17 02:10) Resp Bipap / Cpap Non Invas Vt (07/13/17 ) (Hub Use Only)Inp Phy Cons/Ref (07/13/17 ) Arterial Blood Gas (Abg) (07/13/17 ) Admit Order (Ed Use Only) (07/13/17 03:58) Admit To Inpatient (07/13/17 ) Vital Signs (Adult) Q4H (07/13/17 03:56) Diet Heart Healthy (07/13/17 Breakfast) Sodium Chloride 0.9% Flush (Ns Flush) (07/13/17 09:00) Sodium Chloride 0.9% Flush (Ns Flush) (07/13/17 04:00) Albuterol-Ipratropium Neb (Duoneb Neb) (07/13/17 04:00) Methylprednisolone So Succ Inj (Solumedr (07/13/17 08:00) Basic Metabolic Panel (Bmp) (07/14/17 06:00) Complete Blood Count With Diff (07/14/17 06:00) Copd Educator Consult (07/13/17 ) Heparin Inj (Heparin Inj) (07/13/17 06:00) Inpatient Certification (07/13/17 ) Albuterol-Ipratropium Neb (Duoneb Neb) (07/13/17 04:15) Labs Laboratory Tests Test 07/13/17 02:10 White Blood Count 8.9 TH/MM3 Red Blood Count 4.98 MIL/MM3 Hemoglobin 15.5 GM/DL Hematocrit 44.5 % Mean Corpuscular Volume 89.3 FL Mean Corpuscular Hemoglobin 31.1 PG Mean Corpuscular Hemoglobin Concent 34.8 % Red Cell Distribution Width 15.9 % Platelet Count 381 TH/MM3 Mean Platelet Volume 7.3 FL Neutrophils (%) (Auto) 69.7 % Lymphocytes (%) (Auto) 15.1 % Monocytes (%) (Auto) 10.9 % Eosinophils (%) (Auto) 3.4 % Basophils (%) (Auto) 0.9 % Neutrophils # (Auto) 6.2 TH/MM3 Lymphocytes # (Auto) 1.3 TH/MM3 Monocytes # (Auto) 1.0 TH/MM3 Eosinophils # (Auto) 0.3 TH/MM3 Basophils # (Auto) 0.1 TH/MM3 CBC Comment DIFF FINAL Differential Comment Blood Urea Nitrogen 11 MG/DL Creatinine 0.82 MG/DL Random Glucose 108 MG/DL Total Protein 7.6 GM/DL Albumin 3.4 GM/DL Calcium Level 8.3 MG/DL Magnesium Level 1.9 MG/DL Alkaline Phosphatase 162 U/L Aspartate Amino Transf (AST/SGOT) 29 U/L Alanine Aminotransferase (ALT/SGPT) 22 U/L Total Bilirubin 0.5 MG/DL Sodium Level 135 MEQ/L Potassium Level 4.1 MEQ/L Chloride Level 98 MEQ/L Carbon Dioxide Level 29.5 MEQ/L Anion Gap 8 MEQ/L Estimat Glomerular Filtration Rate 96 ML/MIN Total Creatine Kinase 107 U/L Creatine Kinase MB 3.3 NG/ML Troponin I LESS THAN 0.02 NG/ML B-Type Natriuretic Peptide 6 PG/ML MDM Medical Decision Making Medical Screen Exam Complete: Yes Emergency Medical Condition: Yes Medical Record Reviewed: Yes Interpretation(s) EKG reveals normal sinus rhythm with a rate of 96. Q-wave in lead III. Laboratory Tests Test 07/13/17 02:10 White Blood Count 8.9 TH/MM3 Red Blood Count 4.98 MIL/MM3 Hemoglobin 15.5 GM/DL Hematocrit 44.5 % Mean Corpuscular Volume 89.3 FL Mean Corpuscular Hemoglobin 31.1 PG Mean Corpuscular Hemoglobin Concent 34.8 % Red Cell Distribution Width 15.9 % Platelet Count 381 TH/MM3 Mean Platelet Volume 7.3 FL Neutrophils (%) (Auto) 69.7 % Lymphocytes (%) (Auto) 15.1 % Monocytes (%) (Auto) 10.9 % Eosinophils (%) (Auto) 3.4 % Basophils (%) (Auto) 0.9 % Neutrophils # (Auto) 6.2 TH/MM3 Lymphocytes # (Auto) 1.3 TH/MM3 Monocytes # (Auto) 1.0 TH/MM3 Eosinophils # (Auto) 0.3 TH/MM3 Basophils # (Auto) 0.1 TH/MM3 CBC Comment DIFF FINAL Differential Comment Blood Urea Nitrogen 11 MG/DL Creatinine 0.82 MG/DL Random Glucose 108 MG/DL Total Protein 7.6 GM/DL Albumin 3.4 GM/DL Calcium Level 8.3 MG/DL Magnesium Level 1.9 MG/DL Alkaline Phosphatase 162 U/L Aspartate Amino Transf (AST/SGOT) 29 U/L Alanine Aminotransferase (ALT/SGPT) 22 U/L Total Bilirubin 0.5 MG/DL Sodium Level 135 MEQ/L Potassium Level 4.1 MEQ/L Chloride Level 98 MEQ/L Carbon Dioxide Level 29.5 MEQ/L Anion Gap 8 MEQ/L Estimat Glomerular Filtration Rate 96 ML/MIN Total Creatine Kinase 107 U/L Creatine Kinase MB 3.3 NG/ML Troponin I LESS THAN 0.02 NG/ML B-Type Natriuretic Peptide 6 PG/ML Differential Diagnosis Differential diagnosis includes COPD exacerbation, bronchitis, pneumonia, congestive heart failure, pulmonary edema, pleural effusion, ACS, cardiomyopathy , pneumothorax. Narrative Course IV was established, labs are drawn and sent, and the patient was placed on cardiac telemetry monitoring and continuous pulse oximetry monitoring. EKG was ordered and interpreted. Chest x-ray was obtained. The patient was administered Solu-Medrol 125 mg intravenously and duo nebs 3. Chest x-ray is unremarkable Except for emphysematous changes, no evidence for infiltrate. BNP is unremarkable. Troponin is negative. After duo nebs the patient continued to have tachypnea with a respiratory rate of 40. Therefore, the patient was placed on BiPAP, his respiratory rate came down into the 20s. The patient will be admitted for hypoxia secondary to COPD exacerbation and tachypnea. I discussed the patient with the on-call medical service who agrees with admission. Critical Care Narrative Aggregate critical care time was 15 minutes. Time to perform other separately billable procedures was not included in the critical care time. My time did not include minutes spent treating any other patients simultaneously or on activities that did not directly contribute to the patient's treatment. The services I provided to this patient were to treat and/or prevent clinically significant deterioration that could result in: Anoxia, hypoxia, respiratory failure, . I provided critical care services requiring my management, as noted below: Chart data review, documentation time, medication orders and management, vital sign assessments/reviewing monitor data, ordering and reviewing lab tests, ordering and interpreting/reviewing x-rays and diagnostic studies, care of the patient and discussion of the patient with the admitting physicians. Physician Communication Physician Communication I discussed the patient with Dr. Dorsey who agrees with admission. Diagnosis Primary Impression: COPD exacerbation Additional Impression: Hypoxia Admitting Information Admitting Physician Requests: Admit Condition: Stable Kelby Ross MD Jul 13, 2017 02:19
[2017-07-13 02:48] LABS: AUTOMATED NEUTROPHIL # 6.2 TH/MM3 (1.8-7.7); BASOPHIL # 0.1 TH/MM3 (0-0.2); BASOPHIL % 0.9 % (0.0-2.0); EOSINOPHIL # 0.3 TH/MM3 (0-0.4); EOSINOPHIL % 3.4 % (0.0-4.0); HEMATOCRIT 44.5 % (39.0-51.0); HEMOGLOBIN 15.5 GM/DL (13.0-17.0); LYMPH % 15.1 % (9.0-44.0); LYMPHOCYTE # 1.3 TH/MM3 (1.0-4.8); MEAN CELL VOLUME 89.3 FL (80.0-100.0); MEAN CORPUSCULAR HEMOGLOBIN 31.1 PG (27.0-34.0); MEAN CORPUSCULAR HGB CONC 34.8 % (32.0-36.0); MEAN PLATELET VOLUME 7.3 FL (7.0-11.0); MONO % 10.9 % (0.0-8.0); NEUT % 69.7 % (16.0-70.0); PLATELET COUNT 381 TH/MM3 (150-450); RED BLOOD COUNT 4.98 MIL/MM3 (4.50-5.90); RED CELL DISTRIBUTION WIDTH 15.9 % (11.6-17.2); WHITE BLOOD COUNT 8.9 TH/MM3 (4.0-11.0)
[2017-07-13 03:04] LABS: ALKALINE PHOSPHATASE 162 U/L (45-117); TOTAL BILIRUBIN ADULT 0.5 MG/DL (0.2-1.0); TOTAL PROTEIN 7.6 GM/DL (6.4-8.2); TROPONIN I LESS THAN 0.02 NG/ML (0.02-0.05)
--- NOTE | 2017-07-13 03:10 | RADRPT ---
EXAM DATE/TIME: 07/13/2017 02:58 [facility] COMPARISON: CHEST SINGLE AP, December 20, 2016, 12:38. INDICATIONS : Short of breath. MEDICAL HISTORY : Chronic obstructive pulmonary disease. Congestive heart failure. SURGICAL HISTORY : None. ENCOUNTER: Initial ACUITY: 1 day PAIN SCORE: 0/10 LOCATION: Bilateral chest FINDINGS: PA and lateral views of the chest demonstrates hyperinflation which can be seen with CO PD. Bullous changes upper lobes. No infiltrates are seen. Heart is normal in size. The mediastinal c ontours are unremarkable. Osseous structures are intact. CONCLUSION: Emphysematous changes. No evidence for an infiltrate. Hudson Herrera MD on July 13, 2017 at 3:07 Board Certified Radiologist. This report was verified electronically.
[2017-07-13 03:32] LABS: ALBUMIN 3.4 GM/DL (3.4-5.0); ALT (GPT) 22 U/L (12-78); AST (GOT) 29 U/L (15-37); BICARBONATE 29.5 MEQ/L (21.0-32.0); BLOOD UREA NITROGEN 11 MG/DL (7-18); CALCIUM 8.3 MG/DL (8.5-10.1); CHLORIDE 98 MEQ/L (98-107); CREATININE 0.82 MG/DL (0.60-1.30); GLOMERULAR FILTRATION RATE 96 ML/MIN (>89); GLUCOSE,RANDOM 108 MG/DL (74-106); MAGNESIUM 1.9 MG/DL (1.5-2.5); SODIUM (NA) 135 MEQ/L (136-145)
[2017-07-13] MEDS ORDERED: SODIUM CHLORIDE 0.9% FLUSH 10 ML FLUSH IV FLUSH PRN (04:00)
[2017-07-13] MEDS ORDERED: RESP: ALBUTEROL 2.5 MG/IPRATROPIUM 0.5 MG NEB (PRN) NEB (04:15)
[2017-07-13] MEDS: HEPARIN SODIUM - SQ 10,000 UNITS/ML VIAL SQ SCH ×3 (05:58→21:06)
[2017-07-13] MEDS: methylPREDNISolone SOD SUCC 125 MG/2 ML VIAL IV PUSH SCH ×2 (08:13→15:24)
[2017-07-13] MEDS: SODIUM CHLORIDE 0.9% FLUSH 10 ML FLUSH IV FLUSH SCH ×2 (09:00→21:00)
--- NOTE | 2017-07-13 15:40 | EKG ---
Date Performed: 07/13/2017 Time Performed: 02:42:17 PTAGE: 62 years EKG: Sinus rhythm MARKED LEFT AXIS DEVIATION POSSIBLE INFERIOR MYOCARDIAL INFARCTION ABNORMAL ECG Since the PREVIOUS TRACING , no significant change noted PREVIOUS TRACIN12/20/2016 12.54 DOCTOR: Aj Mtz Interpretating Date/Time 07/13/2017 15:38:16
--- NOTE | 2017-07-13 19:33 | HHI.HP ---
[facility] Unknown Admission Diagnosis COPD exacerbation, hypoxia Diagnoses: (1) COPD exacerbation Travel History International Travel<30 Days: No Contact w/Intl Traveler <30 Da: No Traveled to Known Affected Are: No History of Present Illness 62-year-old male with history of COPD presents to the ER with shortness of breath overnight. He states he has been fighting this for 3 days and also reports that he had diarrhea last week. He has resting comfortably with BiPAP. States that he has been fighting a cough recently. He denies any fevers. He does not have access to medications as an outpatient. He does have access to cigarettes and is a regular smoker. Review of Systems Constitutional: COMPLAINS OF: Fatigue, DENIES: Fever, Weight gain, Weight loss , Chills Respiratory: COMPLAINS OF: Cough, Wheezing, Sputum production, DENIES: Hemoptysis Cardiovascular: DENIES: Chest pain, Palpitations, Syncope, Dyspnea on Exertion , PND Gastrointestinal: DENIES: Black stools, Bloody stools, Constipation, Diarrhea, Nausea, Vomiting Genitourinary: DENIES: Urinary frequency, Urgency, Hematuria Musculoskeletal: DENIES: Joint pain, Muscle aches, Stiffness, Back pain, Neck pain Hematologic/lymphatic: DENIES: Bruising, Lymphadenopathy Immunologic/allergic: DENIES: Eczema, Urticaria Neurologic: DENIES: Abnormal gait, Headache, Localized weakness, Paresthesias, Seizures Psychiatric: DENIES: Anxiety, Confusion, Mood changes, Depression, Hallucinations Past Family Social History Past Medical History COPD, diarrhea last week Past Surgical History Hernia repair Allergies: Coded Allergies: No Known Allergies (Verified Allergy, Unknown, 07/13/17) Family History Unknown Social History Smokes 1 pack every 3 days, drinks beer occasionally. Physical Exam Vital Signs Vital Signs Date Time Temp Pulse Resp B/P (MAP) Pulse Ox O2 Delivery O2 Flow Rate FiO2 07/13/17 18:00 98 07/13/17 17:39 97.9 108 20 157/74 (101) 93 07/13/17 17:20 78 20 134/53 (80) 96 Room Air 07/13/17 13:02 71 17 132/87 (102) 96 Room Air 07/13/17 11:15 100 18 137/81 (99) 95 Room Air 07/13/17 09:51 91 17 132/72 (92) 94 Room Air 07/13/17 07:14 71 17 130/76 (94) 95 BiPAP 07/13/17 05:58 77 24 130/76 (94) 95 BiPAP 21 07/13/17 05:13 95 21 07/13/17 04:57 76 28 137/78 (97) 94 BiPAP 21 07/13/17 03:50 103 36 139/75 (96) 96 BiPAP 21 07/13/17 03:42 96 BiPAP 21 07/13/17 03:35 97 21 07/13/17 02:48 93 36 149/70 (96) 98 Nasal Cannula 2.00 07/13/17 02:23 104 24 138/76 (96) 88 Nasal Cannula 2.00 07/13/17 02:23 97 Nasal Cannula 2.00 07/13/17 02:08 94 24 97 Nasal Cannula 2.00 07/13/17 01:55 98.2 104 24 138/76 (96) 88 Room Air Physical Exam GENERAL: This is a thin appearing man, somewhat disheveled, comfortable on BiPAP SKIN: No rashes, ecchymoses or lesions. Dry lower extremities, evidence of poor circulation. HEAD: Atraumatic. Normocephalic. No temporal or scalp tenderness. EYES: Pupils equal round and reactive. Extraocular motions intact. No scleral icterus. No injection or drainage. ENT: Nose without bleeding, purulent drainage or septal hematoma. Throat without erythema, tonsillar hypertrophy or exudate. Uvula midline. Airway patent. NECK: Trachea midline. No JVD or lymphadenopathy. Supple, nontender, no meningeal signs. CARDIOVASCULAR: Regular rate and rhythm without murmurs, gallops, or rubs. RESPIRATORY: Mostly clear with anterior congestion. Scattered wheezes GASTROINTESTINAL: Abdomen soft, non-tender, nondistended. No hepato-splenomegaly , or palpable masses. No guarding. MUSCULOSKELETAL: Extremities without clubbing, cyanosis, or edema. No joint tenderness, effusion, or edema noted. No calf tenderness. Negative Homans sign bilaterally. NEUROLOGICAL: Awake and alert. Cranial nerves II through XII intact. Motor and sensory grossly within normal limits. Five out of 5 muscle strength in all muscle groups. Normal speech. Laboratory Laboratory Tests Test 07/13/17 02:10 07/13/17 04:05 White Blood Count 8.9 Red Blood Count 4.98 Hemoglobin 15.5 Hematocrit 44.5 Mean Corpuscular Volume 89.3 Mean Corpuscular Hemoglobin 31.1 Mean Corpuscular Hemoglobin Concent 34.8 Red Cell Distribution Width 15.9 Platelet Count 381 Mean Platelet Volume 7.3 Neutrophils (%) (Auto) 69.7 Lymphocytes (%) (Auto) 15.1 Monocytes (%) (Auto) 10.9 Eosinophils (%) (Auto) 3.4 Basophils (%) (Auto) 0.9 Neutrophils # (Auto) 6.2 Lymphocytes # (Auto) 1.3 Monocytes # (Auto) 1.0 Eosinophils # (Auto) 0.3 Basophils # (Auto) 0.1 CBC Comment DIFF FINAL Differential Comment Blood Urea Nitrogen 11 Creatinine 0.82 Random Glucose 108 Total Protein 7.6 Albumin 3.4 Calcium Level 8.3 Magnesium Level 1.9 Alkaline Phosphatase 162 Aspartate Amino Transf (AST/SGOT) 29 Alanine Aminotransferase (ALT/SGPT) 22 Total Bilirubin 0.5 Sodium Level 135 Potassium Level 4.1 Chloride Level 98 Carbon Dioxide Level 29.5 Anion Gap 8 Estimat Glomerular Filtration Rate 96 Total Creatine Kinase 107 Creatine Kinase MB 3.3 Troponin I LESS THAN 0.02 B-Type Natriuretic Peptide 6 Blood Gas Puncture Site LT RADIAL Blood Gas Patient Temperature 98.6 Blood Gas HCO3 27 Blood Gas Base Excess 2.0 Blood Gas Oxygen Saturation 90 Arterial Blood pH 7.37 Arterial Blood Partial Pressure CO2 47 Arterial Blood Partial Pressure O2 65 Arterial Blood Oxygen Content 18.7 Arterial Blood Carboxyhemoglobin 2.9 Arterial Blood Methemoglobin 0.6 Blood Gas Hemoglobin 14.9 Oxygen Delivery Device BIPAP Blood Gas Ventilator Setting IPAP=12 EPAP=5 Blood Gas Inspired Oxygen 21 Date/Time Source Procedure Growth Status 07/13/17 03:35 Nasal Aspirate Influenza Types A,B Antigen (ANGELIA) - Final NEGATIVE FOR FLU A AND B ANTIGEN.... Complete Result Diagram: 07/13/1720907/13/17209 Caprini VTE Risk Assessment Caprini VTE Risk Assessment: Mod/High Risk (score >= 2) Caprini Risk Assessment Model Point Value = 1 Point Value = 2 Point Value = 3 Point Value = 5 Age 41-60 Minor surgery BMI > 25 kg/m2 Swollen legs Varicose veins or History of unexplained or recurrent spontaneous Oral contraceptives or hormone replacement Sepsis (< 1 month) Serious lung disease, including pneumonia (< 1 month) Abnormal pulmonary function Acute myocardial infarction Congestive heart failure (< 1 month) History of inflammatory bowel disease Medical patient at bed rest Age 61-74 Arthroscopic surgery Major open surgery (> 45 min) Laparoscopic surgery (> 45 min) Malignancy Confined to bed (> 72 hours) Immobilizing plaster cast Central venous access Age >= 75 History of VTE Family history of VTE Factor V Leiden Prothrombin [id number] Lupus anticoagulant Anticardiolipin antibodies Elevated serum homocysteine Heparin-induced thrombocytopenia Other congenital or acquired thrombophilia Stroke (< 1 month) Elective arthroplasty Hip, pelvis, or leg fracture Acute spinal cord injury (< 1 month) Prophylaxis Regimen Total Risk Factor Score Risk Level Prophylaxis Regimen 0-1 Low Early ambulation 2 Moderate Order ONE of the following: *Sequential Compression Device (SCD) *Heparin 5000 units SQ BID 3-4 Higher Order ONE of the following medications: *Heparin 5000 units SQ TID *Enoxaparin/Lovenox 40 mg SQ daily (WT < 150 kg, CrCl > 30 mL/min) *Enoxaparin/Lovenox 30 mg SQ daily (WT < 150 kg, CrCl > 10-29 mL/min) *Enoxaparin/Lovenox 30 mg SQ BID (WT < 150 kg, CrCl > 30 mL/min) AND/OR *Sequential Compression Device (SCD) 5 or more Highest Order ONE of the following medications: *Heparin 5000 units SQ TID (Preferred with Epidurals) *Enoxaparin/Lovenox 40 mg SQ daily (WT < 150 kg, CrCl > 30 mL/min) *Enoxaparin/Lovenox 30 mg SQ daily (WT < 150 kg, CrCl > 10-29 mL/min) *Enoxaparin/Lovenox 30 mg SQ BID (WT < 150 kg, CrCl > 30 mL/min) AND *Sequential Compression Device (SCD) Assessment and Plan Problem List: (1) COPD exacerbation ICD Code: J44.1 - Chronic obstructive pulmonary disease with (acute) exacerbation Status: Acute Assessment and Plan COPD exacerbation Patient remained on BiPAP overnight but has graduated to nasal cannula today, he is on room air currently and saturating at 96% Continue with Solu-Medrol and duo nebs Will start azithromycin due to infectious risk and cough Plan for discharge soon if tolerating p.o. treatments DVT prophylaxis Heparin Discharge planning We will transition to p.o. meds, patient may be discharged to tolerating Zachary Aj MD Jul 13, 2017 19:33
[2017-07-13] MEDS: predniSONE 50 MG TAB PO SCH (21:06)
[2017-07-13] MEDS: AZITHROMYCIN 250 MG TAB PO SCH (21:06)
[2017-07-14] VITALS (23 sets, daily range): BP systolic 118–160; BP diastolic 56–84; PULSE 85–123; RESP 18–22; TEMP 97.4–98.4; O2SAT 90–93
[2017-07-14] MEDS: RESP: ALBUTEROL 2.5 MG/IPRATROPIUM 0.5 MG NEB (SCH) INH ×4 (03:30→21:03)
[2017-07-14 04:47] LABS: AUTOMATED NEUTROPHIL # 19.2 TH/MM3 (1.8-7.7); BASOPHIL % 0.1 % (0.0-2.0); HEMATOCRIT 44.2 % (39.0-51.0); HEMOGLOBIN 14.9 GM/DL (13.0-17.0); LYMPHOCYTE # 0.9 TH/MM3 (1.0-4.8); MEAN CELL VOLUME 90.7 FL (80.0-100.0); MEAN CORPUSCULAR HEMOGLOBIN 30.6 PG (27.0-34.0); MEAN CORPUSCULAR HGB CONC 33.7 % (32.0-36.0); MEAN PLATELET VOLUME 7.8 FL (7.0-11.0); MONO % 6.2 % (0.0-8.0); MONOCYTE # 1.3 TH/MM3 (0-0.9); NEUT % 89.7 % (16.0-70.0); PLATELET COUNT 371 TH/MM3 (150-450); RED BLOOD COUNT 4.88 MIL/MM3 (4.50-5.90); RED CELL DISTRIBUTION WIDTH 15.7 % (11.6-17.2); WHITE BLOOD COUNT 21.4 TH/MM3 (4.0-11.0)
[2017-07-14 05:02] LABS: BICARBONATE 28.7 MEQ/L (21.0-32.0); CALCIUM 8.9 MG/DL (8.5-10.1); CREATININE 0.82 MG/DL (0.60-1.30)
[2017-07-14] MEDS: HEPARIN SODIUM - SQ 10,000 UNITS/ML VIAL SQ SCH ×3 (06:21→22:31)
[2017-07-14] MEDS: SODIUM CHLORIDE 0.9% FLUSH 10 ML FLUSH IV FLUSH SCH ×2 (09:08→21:00)
[2017-07-14] MEDS: AZITHROMYCIN 250 MG TAB PO SCH (09:08)
[2017-07-14] MEDS: predniSONE 50 MG TAB PO SCH (09:08)
--- NOTE | 2017-07-14 19:15 | HHI.PR ---
Subjective Remarks Patient resting in bed eating dinner He is wheezing even without stethoscope I discussed with him smoking cessation he is very willing and eager to stop smoking "I am done", "if you feel what I feel when I try to go few steps he will now I will quit smoking " Objective Vitals Vital Signs Date Time Temp Pulse Resp B/P (MAP) Pulse Ox O2 Delivery O2 Flow Rate FiO2 07/14/17 16:00 109 07/14/17 15:09 98.2 119 18 119/60 (79) 93 07/14/17 15:00 123 07/14/17 14:00 105 07/14/17 13:00 111 07/14/17 12:00 119 07/14/17 12:00 117 07/14/17 11:00 117 07/14/17 11:00 115 18 160/84 (109) 92 07/14/17 11:00 115 07/14/17 10:06 90 21 07/14/17 10:00 112 07/14/17 10:00 112 07/14/17 09:00 113 07/14/17 09:00 120 07/14/17 08:00 113 07/14/17 08:00 114 07/14/17 07:00 99 18 137/74 (95) 91 07/14/17 07:00 93 07/14/17 07:00 99 07/14/17 06:27 101 07/14/17 05:27 102 07/14/17 04:03 105 07/14/17 03:34 90 Nasal Cannula 2.00 07/14/17 03:33 85 07/14/17 03:33 98.4 104 22 124/64 (84) 91 07/14/17 02:10 104 07/14/17 01:15 111 07/14/17 00:20 118 07/13/17 23:46 109 07/13/17 23:46 98.0 111 22 122/64 (83) 90 07/13/17 22:18 112 07/13/17 21:51 114 07/13/17 20:15 104 07/13/17 19:30 110 07/13/17 19:30 98.4 104 21 114/61 (78) 93 I/O 07/13/17 07/13/17 07/13/17 07/14/17 07/14/17 07/14/17 06:59 14:59 22:59 06:59 14:59 22:59 Intake Total 240 ml Output Total 570 ml Balance -330 ml Intake Oral 240 ml Output Urine Total 570 ml Stool Total 0 ml Result Diagram: 07/14/17 0325 07/14/17 0325 Objective Remarks GENERAL: This is a well-nourished, well-developed patient, in no apparent distress. CARDIOVASCULAR: Regular rate and rhythm without murmurs, gallops, or rubs. RESPIRATORY: Diffuse expiratory wheezes, diminish breath sounds bilaterally. GASTROINTESTINAL: Abdomen soft, non-tender,nondistended. Normal active bowel sounds MUSCULOSKELETAL: Extremities without clubbing, cyanosis, or edema. NEURO: Alert & Oriented x4 to person, place, time, situation. Moves all ext x4 A/P Problem List: (1) COPD exacerbation ICD Code: J44.1 - Chronic obstructive pulmonary disease with (acute) exacerbation Status: Acute Assessment and Plan COPD exacerbation Status post BiPAP now on nasal cannula today Continue with Solu-Medrol and duo nebs Continue azithromycin due to infectious risk and cough Plan for discharge soon if tolerating p.o. treatments, consider Symbicort or Advair at discharge Tobacco abuse: Smoking cessation lengthy discussion has been done with the patient DVT prophylaxis Heparin Reese Gee MD Jul 14, 2017 19:15
[2017-07-15] VITALS (16 sets, daily range): BP systolic 82–129; BP diastolic 54–80; PULSE 75–103; RESP 17–20; TEMP 97.3–98.2; O2SAT 92–97
[2017-07-15] MEDS: RESP: ALBUTEROL 2.5 MG/IPRATROPIUM 0.5 MG NEB (SCH) INH ×4 (03:49→20:04)
[2017-07-15] MEDS: HEPARIN SODIUM - SQ 10,000 UNITS/ML VIAL SQ SCH ×3 (06:00→20:58)
--- NOTE | 2017-07-15 08:15 | HHI.PR ---
Subjective Remarks awake and alert, slept good overnight complains of slight scratchy feeling in the throat cough minimal- dry Objective Vitals Vital Signs Date Time Temp Pulse Resp B/P (MAP) Pulse Ox O2 Delivery O2 Flow Rate FiO2 07/15/17 04:07 95 07/15/17 03:58 97.5 96 20 109/80 (90) 92 07/15/17 00:46 91 07/15/17 00:13 Room Air 07/15/17 00:11 97.8 92 18 129/58 (81) 92 07/14/17 20:06 99 07/14/17 19:47 98.0 98 20 121/77 (92) 93 07/14/17 17:30 97.4 104 20 118/56 (76) 92 07/14/17 17:00 Room Air 07/14/17 16:00 109 07/14/17 15:09 98.2 119 18 119/60 (79) 93 07/14/17 15:00 123 07/14/17 14:00 105 07/14/17 13:00 111 07/14/17 12:00 119 07/14/17 12:00 117 07/14/17 11:00 117 07/14/17 11:00 115 18 160/84 (109) 92 07/14/17 11:00 115 07/14/17 10:06 90 21 07/14/17 10:00 112 07/14/17 10:00 112 07/14/17 09:00 113 07/14/17 09:00 120 I/O 07/14/17 07/14/17 07/14/17 07/15/17 07/15/17 07/15/17 07:00 15:00 23:00 07:00 15:00 23:00 Intake Total 240 ml 320 ml Output Total 570 ml 500 ml Balance -330 ml -180 ml Intake Oral 240 ml 320 ml Output Urine Total 570 ml 500 ml Stool Total 0 ml # Bowel Movements 0 Result Diagram: 07/14/1732407/14/175 Imaging Last Impressions Chest X-Ray 07/13/17208 Signed Impressions: Service Date/Time: Thursday, July 13, 2017 02:58 - CONCLUSION: Emphysematous changes. No evidence for an infiltrate. Hudson Herrera MD Objective Remarks awake and alert, oriented x 3 appears comfortable on 2LNC anicteric throat- no exudates lungs- no retractions, decreased breath sounds but good air entry- no rales, occasional wheeze regular rhythm' abdomen soft extremities no edema neuro exam- non focal A/P Problem List: (1) COPD exacerbation ICD Code: J44.1 - Chronic obstructive pulmonary disease with (acute) exacerbation Status: Acute Assessment and Plan 62 years old COPD exacerbation- with underlying severe COPD Chronic smoker - very motivated with smoking cessation - had a PFT done last 2016 that shows severe obstructive lung disease - on 2L NC- get an walk test to see if patient qualifies for home 02 - on po Prednisone - gradual taper - Continue azithromycin due to infectious risk and cough - start hand held MDIs- Spiriva and Symbicort Leukocytosis- likely reactive from steroids on Heparin SQ for prophylaxis H2 nikita po bid for GI prophylaxis Up and ambulate- out of bed and increase activity d/w with him to regulate activities based on his pulmonary status tolerates CM consult - assist with home disposition- homeless and DC meds, also may require home 02- pending walk test Alber Jenkins MD Jul 15, 2017 08:15
[2017-07-15] MEDS: AZITHROMYCIN 250 MG TAB PO SCH (09:27)
[2017-07-15] MEDS: predniSONE 50 MG TAB PO SCH (09:27)
[2017-07-15] MEDS: FAMOTIDINE 20 MG TAB PO SCH ×2 (09:27→20:58)
[2017-07-15] MEDS: SODIUM CHLORIDE 0.9% FLUSH 10 ML FLUSH IV FLUSH SCH ×2 (09:28→21:00)
[2017-07-15] MEDS: BUDESONIDE-FORMOTEROL 160/4.5 MCG INHALER INH SCH ×2 (12:55→20:45)
[2017-07-15] MEDS: TIOTROPIUM BROMIDE 18 MCG INH INH SCH (12:55)
[2017-07-16] VITALS (11 sets, daily range): BP systolic 98–109; BP diastolic 53–72; PULSE 74–98; RESP 18–20; TEMP 97.3–98; O2SAT 92–98
[2017-07-16] MEDS: RESP: ALBUTEROL 2.5 MG/IPRATROPIUM 0.5 MG NEB (SCH) INH ×4 (04:03→21:13)
[2017-07-16] MEDS: HEPARIN SODIUM - SQ 10,000 UNITS/ML VIAL SQ SCH ×3 (06:00→21:16)
[2017-07-16] MEDS: predniSONE 50 MG TAB PO SCH (09:13)
[2017-07-16] MEDS: SODIUM CHLORIDE 0.9% FLUSH 10 ML FLUSH IV FLUSH SCH ×2 (09:13→21:00)
[2017-07-16] MEDS: AZITHROMYCIN 250 MG TAB PO SCH (09:13)
[2017-07-16] MEDS: FAMOTIDINE 20 MG TAB PO SCH ×2 (09:13→21:15)
[2017-07-16] MEDS: TIOTROPIUM BROMIDE 18 MCG INH INH SCH (09:14)
[2017-07-16] MEDS: BUDESONIDE-FORMOTEROL 160/4.5 MCG INHALER INH SCH ×2 (09:14→21:00)
--- NOTE | 2017-07-16 09:15 | HHI.PR ---
Subjective Remarks no complains no cough no diarrhea d/w up and ambulating- and adjust to his pulmonary status Objective Vitals Vital Signs Date Time Temp Pulse Resp B/P (MAP) Pulse Ox O2 Delivery O2 Flow Rate FiO2 07/16/17 08:29 96 Nasal Cannula 2.00 07/16/17 04:17 97.3 88 18 98/60 (73) 95 07/16/17 03:41 74 07/16/17 01:01 105/59 (74) 07/15/17 23:55 97.3 75 20 105/59 (74) 97 07/15/17 23:46 103 07/15/17 20:13 Nasal Cannula 2.00 07/15/17 20:12 97.6 93 18 103/58 (73) 97 07/15/17 20:04 93 Nasal Cannula 2.00 07/15/17 19:43 85 07/15/17 16:05 97.8 87 17 107/55 (72) 97 07/15/17 16:00 78 07/15/17 12:05 97.5 86 17 106/63 (77) 95 07/15/17 12:00 103 07/15/17 10:40 3.00 07/15/17 09:58 93 Nasal Cannula 1.00 I/O 07/15/17 07/15/17 07/15/17 07/16/17 07/16/17 07/16/17 07:00 15:00 23:00 07:00 15:00 23:00 Intake Total 320 ml 440 ml 240 ml Output Total 500 ml 800 ml 350 ml Balance -180 ml -360 ml -110 ml Intake Oral 320 ml 440 ml 240 ml Output Urine Total 500 ml 800 ml 350 ml # Bowel Movements 0 1 0 Result Diagram: 07/14/17 0325 07/14/17 0325 Imaging Last Impressions Chest X-Ray 07/13/17 020 Signed Impressions: Service Date/Time: Thursday, July 13, 2017 02:58 - CONCLUSION: Emphysematous changes. No evidence for an infiltrate. Hudson Herrera MD Objective Remarks awake and alert, oriented x 3 appears comfortable on 2LNC anicteric throat- no exudates lungs- no retractions, decreased breath sounds but good air entry- no rales, no wheezes regular rhythm' abdomen soft extremities no edema neuro exam- non focal A/P Problem List: (1) COPD exacerbation ICD Code: J44.1 - Chronic obstructive pulmonary disease with (acute) exacerbation Status: Acute Assessment and Plan 62 years old COPD exacerbation- with underlying severe COPD Chronic smoker - very motivated with smoking cessation - had a PFT done last 2016 that shows severe obstructive lung disease - on 2L NC- get an walk test to see if patient qualifies for home 02- today - on po Prednisone - gradual taper- decrease to 40 mg daily - Continue azithromycin due to infectious risk and cough - continue MDIs- Spiriva and Symbicort Leukocytosis- likely reactive from steroids on Heparin SQ for prophylaxis H2 nikita po bid for GI prophylaxis Up and ambulate- out of bed and increase activity d/w with him to regulate activities based on his pulmonary status tolerates CM consult - assist with home disposition- homeless and DC meds, also may require home 02- pending walk test again today and assist with DC meds Alber Jenkins MD Jul 16, 2017 09:15
[2017-07-16] MEDS ORDERED: OXYGENDME NAS.CANULA (10:42)
[2017-07-16] MEDS: predniSONE 20 MG TAB PO SCH (12:58)
[2017-07-16] MEDS: NYSTATIN SUSP 500,000 U/5 ML CUP SWISH-SWAL SCH ×4 (12:58→21:15)
[2017-07-17] VITALS (9 sets, daily range): BP systolic 100–136; BP diastolic 53–78; PULSE 71–98; RESP 18–20; TEMP 97.6–98.2; O2SAT 91–98
[2017-07-17] MEDS: RESP: ALBUTEROL 2.5 MG/IPRATROPIUM 0.5 MG NEB (SCH) INH (03:21)
[2017-07-17] MEDS: HEPARIN SODIUM - SQ 10,000 UNITS/ML VIAL SQ SCH ×3 (04:36→21:45)
[2017-07-17] MEDS: NYSTATIN SUSP 500,000 U/5 ML CUP SWISH-SWAL SCH ×4 (08:42→21:45)
[2017-07-17] MEDS: predniSONE 20 MG TAB PO SCH (08:42)
[2017-07-17] MEDS: AZITHROMYCIN 250 MG TAB PO SCH (08:42)
[2017-07-17] MEDS: SODIUM CHLORIDE 0.9% FLUSH 10 ML FLUSH IV FLUSH SCH ×2 (08:42→21:45)
[2017-07-17] MEDS: FAMOTIDINE 20 MG TAB PO SCH ×2 (08:42→21:45)
[2017-07-17] MEDS: TIOTROPIUM BROMIDE 18 MCG INH INH SCH (08:43)
[2017-07-17] MEDS: BUDESONIDE-FORMOTEROL 160/4.5 MCG INHALER INH SCH ×2 (08:43→21:45)
--- NOTE | 2017-07-17 14:23 | HHI.PR ---
Subjective Remarks feeling better does not want to go to NH does not want to give up his money and states he is still just 62years old and dont want to get coup up in a place and cant get out Objective Vitals Vital Signs Date Time Temp Pulse Resp B/P (MAP) Pulse Ox O2 Delivery O2 Flow Rate FiO2 07/17/17 12:00 98.2 98 18 110/60 (77) 92 07/17/17 08:00 97.6 90 18 126/69 (88) 91 07/17/17 08:00 Room Air 07/17/17 07:54 71 07/17/17 05:34 72 07/17/17 04:00 97.6 81 20 136/78 (97) 91 07/17/17 04:00 Room Air 07/17/17 00:00 Room Air 07/17/17 00:00 82 07/17/17 00:00 97.6 73 20 100/53 (69) 93 07/16/17 22:21 80 07/16/17 21:15 94 21 07/16/17 20:00 97.9 81 20 103/53 (70) 92 07/16/17 20:00 Room Air 07/16/17 16:00 97.6 98 20 104/61 (75) 98 07/16/17 15:52 91 I/O 07/16/17 07/16/17 07/16/17 07/17/17 07/17/17 07/17/17 07:00 15:00 23:00 07:00 15:00 23:00 Intake Total 240 ml 221 ml Output Total 350 ml 650 ml Balance -110 ml -429 ml Intake Oral 240 ml 221 ml Output Urine Total 350 ml 650 ml # Bowel Movements 0 Result Diagram: 07/14/17 0325 07/14/17 0325 Imaging Last Impressions Chest X-Ray 07/13/17 0209 Signed Impressions: Service Date/Time: Thursday, July 13, 2017 02:58 - CONCLUSION: Emphysematous changes. No evidence for an infiltrate. Hudson Herrera MD Objective Remarks awake and alert, oriented x 3 appears comfortable on 2LNC anicteric throat- no exudates lungs- no retractions, decreased breath sounds but good air entry- no rales, no wheezes regular rhythm' abdomen soft extremities no edema neuro exam- non focal A/P Problem List: (1) COPD exacerbation ICD Code: J44.1 - Chronic obstructive pulmonary disease with (acute) exacerbation Status: Acute Assessment and Plan 62 years old COPD exacerbation- with underlying severe COPD- 02 requiring Chronic smoker - very motivated with smoking cessation - had a PFT done last 2016 that shows severe obstructive lung disease - walk test - on po Prednisone - taper - Continue azithromycin due to infectious risk and cough - continue MDIs- Spiriva and Symbicort Leukocytosis- likely reactive from steroids on Heparin SQ for prophylaxis H2 nikita po bid for GI prophylaxis Up and ambulate- out of bed and increase activity d/w with him to regulate activities based on his pulmonary status tolerates CM consult - assist with home disposition- homeless and DC meds, home 02- d/w CM- patient homeless and no way to deliver the concentrator- per CM- not safe discharge OP ff up up- [facility] Alber Jenkins MD Jul 17, 2017 14:23
[2017-07-17] MEDS ORDERED: PRED5TAB PO (14:29)
[2017-07-17] MEDS ORDERED: Nystatin Liq SWISH-SWAL (14:29)
[2017-07-18] VITALS (7 sets, daily range): BP systolic 103–117; BP diastolic 56–80; PULSE 71–112; RESP 17–20; TEMP 97.8–98; O2SAT 93–96
[2017-07-18] MEDS: HEPARIN SODIUM - SQ 10,000 UNITS/ML VIAL SQ SCH ×2 (06:00→14:00)
--- NOTE | 2017-07-18 08:11 | HHI.PR ---
Subjective Remarks feeling and breathing better up and ambulating around the room- no shortness of breath talking /conversing spontaneously with no shortness of breath Objective Vitals Vital Signs Date Time Temp Pulse Resp B/P (MAP) Pulse Ox O2 Delivery O2 Flow Rate FiO2 07/18/17 04:00 97.9 71 17 103/56 (72) 94 07/18/17 00:00 97.8 77 18 104/66 (79) 94 07/17/17 20:00 97.9 86 20 108/59 (75) 98 07/17/17 16:06 78 07/17/17 16:04 97.9 90 18 124/65 (84) 93 07/17/17 12:00 98.2 98 18 110/60 (77) 92 I/O 07/17/17 07/17/17 07/17/17 07/18/17 07/18/17 07/18/17 07:00 15:00 23:00 07:00 15:00 23:00 Intake Total 221 ml 480 ml 240 ml Output Total 650 ml 1000 ml 750 ml Balance -429 ml -520 ml -510 ml Intake Oral 221 ml 480 ml 240 ml Output Urine Total 650 ml 1000 ml 750 ml # Bowel Movements 1 1 Result Diagram: 07/14/17 0325 07/14/17 0325 Imaging Last Impressions Chest X-Ray 07/13/17208 Signed Impressions: Service Date/Time: Thursday, July 13, 2017 02:58 - CONCLUSION: Emphysematous changes. No evidence for an infiltrate. Hudson Herrera MD Objective Remarks awake and alert, oriented x 3 appears comfortable at room air anicteric throat- no exudates, thrush improved lungs- no retractions, good air entry- no rales, no wheezes regular rhythm abdomen soft extremities no edema neuro exam- non focal A/P Problem List: (1) COPD exacerbation ICD Code: J44.1 - Chronic obstructive pulmonary disease with (acute) exacerbation Status: Acute Assessment and Plan 62 years old COPD exacerbation- with underlying severe COPD- 02 requiring- clinically improving Chronic smoker - very motivated with smoking cessation - had a PFT done last 2016 that shows severe obstructive lung disease - on po Prednisone - taper - decrease to 30 mg daily -continue MDIs- Spiriva and Symbicort - up and ambulating comfortably in his room- get a walk test again today- d/w RT Leukocytosis- likely reactive from steroids on Heparin SQ for prophylaxis H2 nikita po bid for GI prophylaxis Up and ambulating out of bed and increase activity d/w with him to regulate activities based on his pulmonary status tolerates CM consult - assist with home disposition- homeless and DC meds, clinically improving discuss with him- knowledgeable about pacing himself in between homes - while waiting for his check to come in and does not want to go to a facility- "still want to have a life,I'm just 62 years old" d/w CM- patient homeless and no way to deliver the concentrator- per CM- not safe discharge-walk test 89%- was comfortable no shortness of breath OP ff up up- [facility] Alber Jenkins MD Jul 18, 2017 08:11
[2017-07-18] MEDS ORDERED: predniSONE 10 MG TAB PO SCH (09:00)
[2017-07-18] MEDS: NYSTATIN SUSP 500,000 U/5 ML CUP SWISH-SWAL SCH ×2 (09:00→11:48)
[2017-07-18] MEDS: TIOTROPIUM BROMIDE 18 MCG INH INH SCH (09:08)
[2017-07-18] MEDS: FAMOTIDINE 20 MG TAB PO SCH (09:08)
[2017-07-18] MEDS: BUDESONIDE-FORMOTEROL 160/4.5 MCG INHALER INH SCH (09:08)
[2017-07-18] MEDS: SODIUM CHLORIDE 0.9% FLUSH 10 ML FLUSH IV FLUSH SCH (09:08)
--- NOTE | 2017-07-18 14:48 | HHI.DS ---
Discharge Summary Admission Date Jul 13, 2017 at 04:00 Discharge Date: Jul 18, 2017 Admitting Diagnosis COPD exacerbation, hypoxia (1) COPD exacerbation ICD Code: J44.1 - Chronic obstructive pulmonary disease with (acute) exacerbation Diagnosis: Principal Status: Acute Procedures none Brief History - From Admission 62-year-old male with history of COPD presents to the ER with shortness of breath overnight. He states he has been fighting this for 3 days and also reports that he had diarrhea last week. He has resting comfortably with BiPAP. States that he has been fighting a cough recently. He denies any fevers. He does not have access to medications as an outpatient. He does have access to cigarettes and is a regular smoker. CBC/BMP: 07/14/175 07/14/17324 Imaging Last Impressions Chest X-Ray 07/13/17208 Signed Impressions: Service Date/Time: Thursday, July 13, 2017 02:58 - CONCLUSION: Emphysematous changes. No evidence for an infiltrate. Hudson Herrera MD PE at Discharge awake and alert, oriented x 3 appears comfortable at room air anicteric throat- no exudates, thrush improved lungs- no retractions, good air entry- no rales, no wheezes regular rhythm abdomen soft extremities no edema neuro exam- non focal Pt update on day of discharge afebrile, comfortable, no wheezes Hospital Course 62 years old COPD exacerbation- with underlying severe COPD- 02 requiring- clinically improving Chronic smoker - very motivated with smoking cessation - had a PFT done last 2016 that shows severe obstructive lung disease - on po Prednisone - taper - decrease to 30 mg daily -continue MDIs- Spiriva and Symbicort - up and ambulating comfortably in his room- get a walk test again today- d/w RT Leukocytosis- likely reactive from steroids on Heparin SQ for prophylaxis H2 nikita po bid for GI prophylaxis Up and ambulating out of bed and increase activity d/w with him to regulate activities based on his pulmonary status tolerates CM consult - assist with home disposition- homeless and DC meds, clinically improving discuss with him- knowledgeable about pacing himself in between homes - while waiting for his check to come in and does not want to go to a facility- "still want to have a life,I'm just 62 years old" d/w CM- patient homeless and no way to deliver the concentrator- per CM- not safe discharge-walk test 89%- was comfortable no shortness of breath OP ff up up- [facility] Pt Condition on Discharge: Stable Discharge Disposition: Discharge Home Discharge Time: <= 30 minutes Discharge Instructions DIET: Follow Instructions for: As Tolerated, No Restrictions Activities you can perform: Weight Bearing as [place] Activities to Avoid: Strenuous Activity Follow up Referrals: PCP Follow-up - 3-5 Days with [facility] New Medications: Prednisone (Prednisone) 5 Mg Tab 5 MG PO DAILY for COPD, #12 TAB 0 Refills take 3 tablets x 2 days then 2 tablets x 2 days then 1 tab x 2 days then DC [Nystatin Liq] () 5 ML SUSP 5 ML SWISH-SWAL QID for oral thrush for 7 Days, #1 Continued Medications: Albuterol 18 GM Inh (Ventolin Hfa 18 GM Inh) 90 Mcg/Act Aer 2 PUFF INH Q4-6H PRN for SHORTNESS OF BREATH, #1 INHALER 0 Refills Ipratropium-Albuterol Inh (Combivent Respimat Inh) 20-100 Half-Way/Act Aero 1 PUFF INH QID for Asthma Management, #1 INHALER 0 Refills Alber Jenkins MD Jul 18, 2017 14:48
== END 2017-07-18 16:25 | disposition home or self-care (01) | DRG 191 ==
LOC: NEPC 01:52 → NEDA 04:00 → HCPC 17:35 → N04B 07-14 17:24
PROVIDERS: ADMIT Internal Medicine; ATTEND Internal Medicine
PROC: 5A09357 Assistance with Respiratory Ventilation, Less than 24 Consecutive Hours, Continuous Positive Airway Pressure (ICD-10-PCS; principal; 2017-07-13)
DX: J44.1 Chronic obstructive pulmonary disease with (acute) exacerbation (principal); R64 Cachexia; Z68.1 Body mass index [BMI] 19.9 or less, adult; R09.02 Hypoxemia; F17.210 Nicotine dependence, cigarettes, uncomplicated; F12.90 Cannabis use, unspecified, uncomplicated; Z59.0 Homelessness
CPT/HCPCS: 36600; 71045; 80048; 80053; 82550; 82552; 82805; 83735; 83880; 84484; 85025; 87804; 93005; 94002; 94618; 94640; 94664; 96374; J1644; J2930; J7512